=== PATIENT | female | born 1935 | race African-American/Black ===

== ENCOUNTER 2016-09-10 09:19 | Inpatient (IN) | payer BC ==
[2016-09-10] VITALS (20 sets, daily range): BP systolic 98–158; BP diastolic 57–109
[~2016-09-10] VITALS: Ht 167.6 cm; Wt 94.3 kg
[~2016-09-10 09:19] MED LIST: DILT240C32 PO; FERR325T72 PO; GLIM2TAB2 PO; HYDR-971 PO; LISI40TA PO; METF500T4 PO; METO50TA2 PO; PRAV80TA2 PO; TRIA1TAB5 PO
[2016-09-10] MEDS ORDERED: fentaNYL PF VIAL 100 MCG/2 ML VIAL IV PRN (10:00)
[2016-09-10 10:01] LABS: NEG OBC FOB NEG; POS OBC FOB POS
[2016-09-10 10:12] LABS: BASO % 1 % (0-3); EOS % 1 % (0-3); HEMATOCRIT 30.3 % (36.0-47.0); HEMOGLOBIN 10.6 g/dL (12.0-15.5); LYMPH % 13 % (24-48); MEAN CORPUSCULAR HEMOGLOBIN 29 pg (25-35); MEAN CORPUSCULAR HGB CONC 35 g/dL (31-37); MEAN CORPUSCULAR VOLUME 83 fL (79-100); MONO % 6 % (0-9); NEUT % 79 % (31-73); PLATELET COUNT 248 x10^3/uL (140-400); RED BLOOD COUNT 3.63 x10^6/uL (3.50-5.40); RED CELL DISTRIBUTION WIDTH 16.1 % (11.5-14.5); WHITE BLOOD COUNT 7.9 x10^3/uL (4.0-11.0)
--- NOTE | 2016-09-10 10:15 | ED.ADGEN ---
Past Medical History Past Medical History: Diverticulitis Past Surgical History: Hip Replacement Additional Past Surgical Histo: R knee, back Alcohol Use: None Drug Use: None Adult General Chief Complaint Chief Complaint: ABDOMINAL PAIN HPI HPI Patient is a 81 year old woman, history of diverticulitis with recurrent diverticular bleed, who presents to the emergency department with a complaint of several episodes of bloody stool this morning. Patient states she is experiencing lower abdominal cramping early this morning, and had a bowel movement with dark brown stool, and a small amount of bright red blood, has had 2 subsequent episodes with no stool, and large amounts of bright red blood. Denies any injuries, denies any abdominal pain currently, no chest pain, shortness of breath, no nausea or vomiting. Patient is a history of a hiatal hernia, and a previous endoscopy that revealed hemorrhoids and diverticulitis per her report she was seen by Dr. Calle several years ago. Patient was seen in the ED and admitted in February 2016 with a diverticular bleed, at that time she was seen by Dr. Ken. Denies any NSAIDs or blood thinners. She denies any recent travel, surgery, or other complaints. States she was feeling well until this began this morning. Currently blood pressures are 120s over 80s, heart rate is in the 60s, oxygen saturation is 97-99% on room air, respiratory rate is unlabored. Review of Systems Review of Systems Constitutional: Denies fever or chills. [] Eyes: Denies change in visual acuity. [] HENT: Denies nasal congestion or sore throat. [] Respiratory: Denies cough or shortness of breath. [] Cardiovascular: Denies chest pain or edema. [] GI: Denies abdominal pain, nausea, vomiting, bloody stools or diarrhea. [] : Denies dysuria. [] Musculoskeletal: Denies back pain or joint pain. [] Integument: Denies rash. [] Neurologic: Denies headache, focal weakness or sensory changes. [] Endocrine: Denies polyuria or polydipsia. [] Lymphatic: Denies swollen glands. [] Psychiatric: Denies depression or anxiety. [] Current Medications Current Medications Current Medications Medications (Trade) Dose Ordered Sig/Anna Start Time Stop Time Status Last Admin Dose Admin Fentanyl Citrate (Fentanyl 2ml Vial) 25 mcg PRN Q15MIN PRN 09/10/16 10:00 09/11/16 09:59 09/10/16 11:15 25 MCG Allergies Allergies Allergies Coded Allergies Type Severity Reaction Last Updated Verified morphine Allergy Intermediate itching 03/10/15 Yes I S O L A T I O N *CONTACT* Allergy Unknown 02/09/16 Yes Physical Exam Physical Exam Constitutional: Well developed, well nourished, no acute distress, non-toxic appearance. [] HENT: Normocephalic, atraumatic, bilateral external ears normal, oropharynx moist, no oral exudates, nose normal. [] Eyes: PERRLA, EOMI, conjunctiva normal, no discharge. [] Neck: Normal range of motion, no tenderness, supple, no stridor. [] Cardiovascular:Heart rate regular rhythm, no murmur, S1, S2, no rubs or gallops. [] Lungs & Thorax: Bilateral breath sounds clear to auscultation, no wheezing, rhonchi, rales. No chest wall crepitus or tenderness. [] Abdomen: Bowel sounds normal, soft, obese, no tenderness, no rebound, rigidity, no guarding, no masses, no pulsatile masses. [] Skin: Warm, dry, no erythema, no rash. [] Back: No tenderness, no CVA tenderness. [] Extremities: No tenderness, no cyanosis, no clubbing, ROM intact, no edema. Negative Homans sign. [] Neurologic: Alert and oriented X 3, normal motor function, normal sensory function, no focal deficits noted. [] Psychologic: Affect normal, judgement normal, mood normal. [] Rectal examination: Patient with gross bright red blood noted, large amounts of blood in noted to be in toilet. Current Patient Data Vital Signs Vital Signs Date Time Temp Pulse Resp B/P (MAP) Pulse Ox O2 Delivery O2 Flow Rate FiO2 09/10/16 10:42 71 18 127/69 (88) 97 09/10/16 09:35 98.1 Room Air 98.1 Lab Values Laboratory Tests Test 09/10/16 09:35 09/10/16 09:55 09/10/16 10:20 09/10/16 10:23 Stool Occult Blood Positive (NEG) White Blood Count 7.9 x10^3/uL (4.0-11.0) Red Blood Count 3.63 x10^6/uL (3.50-5.40) Hemoglobin 10.6 g/dL (12.0-15.5) L Hematocrit 30.3 % (36.0-47.0) L Mean Corpuscular Volume 83 fL (79-100) Mean Corpuscular Hemoglobin 29 pg (25-35) Mean Corpuscular Hemoglobin Concent 35 g/dL (31-37) Red Cell Distribution Width 16.1 % (11.5-14.5) H Platelet Count 248 x10^3/uL (140-400) Neutrophils (%) (Auto) 79 % (31-73) H Lymphocytes (%) (Auto) 13 % (24-48) L Monocytes (%) (Auto) 6 % (0-9) Eosinophils (%) (Auto) 1 % (0-3) Basophils (%) (Auto) 1 % (0-3) Neutrophils # (Auto) 6.3 x10^3uL (1.8-7.7) Lymphocytes # (Auto) 1.0 x10^3/uL (1.0-4.8) Monocytes # (Auto) 0.5 x10^3/uL (0.0-1.1) Eosinophils # (Auto) 0.1 x10^3/uL (0.0-0.7) Basophils # (Auto) 0.0 x10^3/uL (0.0-0.2) Prothrombin Time 14.4 SEC (11.7-14.0) H Prothrombin Time INR 1.2 (0.8-1.1) H PTT 29 SEC (24-38) Sodium Level 144 mmol/L (136-145) Potassium Level 3.8 mmol/L (3.5-5.1) Chloride Level 107 mmol/L (98-107) Carbon Dioxide Level 24 mmol/L (21-32) Anion Gap 13 (6-14) Blood Urea Nitrogen 20 mg/dL (7-20) Creatinine 1.2 mg/dL (0.6-1.0) H Estimated GFR (Cockcroft-Gault) 52.0 BUN/Creatinine Ratio 17 (6-20) Glucose Level 198 mg/dL (70-99) H Calcium Level 9.6 mg/dL (8.5-10.1) Total Bilirubin 0.2 mg/dL (0.2-1.0) Aspartate Amino Transferase (AST) 17 U/L (15-37) Alanine Aminotransferase (ALT) 18 U/L (14-59) Alkaline Phosphatase 87 U/L (46-116) Troponin I Quantitative < 0.017 ng/mL (0.000-0.055) Total Protein 6.7 g/dL (6.4-8.2) Albumin 3.1 g/dL (3.4-5.0) L Albumin/Globulin Ratio 0.9 (1.0-1.7) L Lactic Acid Level 2.2 mmol/L (0.4-2.0) H Urine Collection Type U cath Urine Color Yellow Urine Clarity Clear Urine pH 5.0 Urine Specific [place] 1.025 Urine Protein 100 mg/dL (NEG-TRACE) Urine Glucose (UA) Negative mg/dL (NEG) Urine Ketones (Stick) Negative mg/dL (NEG) Urine Blood Negative (NEG) Urine Nitrite Negative (NEG) Urine Bilirubin Negative (NEG) Urine Urobilinogen Dipstick 0.2 mg/dL (0.2 mg/dL) Urine Leukocyte Esterase Negative (NEG) Urine RBC 0 /HPF (0-2) Urine WBC 1-4 /HPF (0-4) Urine Transitional Epithelial Cells Occ /LPF Urine Amorphous Sediment Present /HPF Urine Bacteria Moderate /HPF (0-FEW) Laboratory Tests 09/10/16 09:55 Laboratory Tests 09/10/16 09:55 EKG EKG EC: Sinus rhythm, heart rate 70 beats minute, left axis deviation, Q waves noted in lead 3, with abnormalities in lead 2, and changes in the lateral leads, QTc of 435, CT of 194, QRS of 86, abnormal ECG, does not meet STEMI criteria. As interpreted by me. Course & Med Decision Making Course & Med Decision Making Pertinent Labs and Imaging studies reviewed. (See chart for details) I spoke with NEVILLE Archuleta for Dr. Ken. Will proceed with bleeding scan, patient currently has laboratory studies running, including a type and screen for potential transfusion if needed. No history consistent with or evidence of upper GI bleeding, no indication for Protonix infusion. At this time she is denying all complaints, and vital signs remained within normal limits in the ED. Patient's hemoglobin is 10.9, consent for transfusion was obtained, although there is no indication for transfusion at this time, as patient's vital signs remained within normal limits, hemoglobin is stated. Patient is agreeable with this plan. Findings as above discussed with Dr. Henson, the patient's primary care provider, was accepted as a full admission to the ICU under her service. Patient transported for nuclear medicine for her GI bleeding study in stable condition. Dragon Disclaimer Dragon Disclaimer This electronic medical record was generated, in whole or in part, using a voice recognition dictation system. Departure Impression: Primary Impression: Lower GI bleed Disposition: ADMITTED INPATIENT Admitting Physician: More Henson Condition: IMPROVED SENA FREED DO Sep 10, 2016 10:15
[2016-09-10 10:17] LABS: CALCIUM 9.6 mg/dL (8.5-10.1); CREATININE 1.2 mg/dL (0.6-1.0); POTASSIUM 3.8 mmol/L (3.5-5.1)
[2016-09-10 10:24] LABS: ALBUMIN 3.1 g/dL (3.4-5.0); ALBUMIN/GLOBULIN RATIO 0.9 (1.0-1.7); TOTAL BILIRUBIN 0.2 mg/dL (0.2-1.0); TOTAL PROTEIN 6.7 g/dL (6.4-8.2)
[2016-09-10 10:30] LABS: INR 1.2 (0.8-1.1); PROTHROMBIN TIME PATIENT 14.4 SEC (11.7-14.0)
[2016-09-10 10:33] LABS: BILIRUBIN,URINE NEGATIVE (NEG); GLUCOSE,URINE NEGATIVE (NEG); NITRITE,URINE NEGATIVE (NEG); PROTEIN,URINE 100 mg/dL (NEG-TRACE); UROBILINOGEN,URINE 0.2 mg/dL (0.2 mg/dL)
[2016-09-10 10:45] LABS: BACTERIA,URINE MODERATE /HPF (0-FEW); RBC,URINE 0 /HPF (0-2)
--- NOTE | 2016-09-10 10:46 | EKG ---
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
[2016-09-10] MEDS ORDERED: IV NORMAL SALINE 500ML BAG 500 ML IV ONE (11:30)
[2016-09-10] MEDS ORDERED: ONDANSETRON PF 4 MG/2 ML VIAL. IV PRN (11:30)
--- NOTE | 2016-09-10 11:34 | ACF ---
Admit Criteria Forms Admit Criteria Forms Admit Criteria Forms GASTROINTESTINAL BLEEDING, LOWER Clinical Indications for Admission to Inpatient Care ( Place 'X' for any and all applicable criteria): Admission is indicated for ANY ONE of the following(1)(2)(3)(4)(5): [X]I. Active gross bleeding per rectum [ ]II. Inpatient admission required rather than observation care (Also use Gastrointestinal Bleeding, Lower: Observation Care as appropriate) because of ANY ONE of the following: [ ]a) Hemodynamic instability that is severe or persistent [ ]b) Anemia requiring inpatient admission as indicated by ALL of the following: [ ]1) Presence of significant clinical finding indicated by ANY ONE of the following: [ ]A. Tachycardia for age [ ]B. Orthostatic vital sign changes [ ]C. Cognitive impairment [ ]D. Heart failure [ ]E. Chest pain [ ]F. Exertional dyspnea [ ]G. Other findings suggesting inadequate perfusion (eg, peripheral or myocardial ischemia, end organ dysfunction) [ ]2) Initial (eg, emergency department, observation care) treatment with transfusion or volume replacement is judged inappropriate (due to severity of the finding) or has been ineffective [ ]c) Severe pain requiring acute inpatient management [ ]d) Absent bowel sounds with complete ileus [ ]e) Signs of intestinal obstruction or peritonitis [A] [ ]f) High-risk low platelet count [ ]g) Severe electrolyte abnormalities requiring inpatient care [ ]h) Acute renal failure [ ]i) High fever or infection requiring inpatient admission as indicated by ANY ONE of the following(8)(9): [ ]1) Appropriate outpatient or observation care antimicrobial treatment unavailable, not effective, or not feasible Documented bacteremia [ ]2) Documented bacteremia [ ]3) Temperature greater than 104.9 degrees F ( 40.5 degrees C) (oral) [ ]4) Temperature greater than 103.1 degrees F ( 39.5 degrees C) (oral) or less than 96.8 degrees F (36 degrees C) (rectal) that does not respond to all emergency treatment measures [ ]j) IV fluid to replace significant ongoing losses ( greater than 3 L/m2 per day) [ ]k) Immediate inpatient surgery needed [ ]l) Parenteral nutrition regimen that must be implemented on inpatient basis [ ]m) Other condition, treatment or monitoring requiring inpatient admission [ ]III. Unstable comorbid illness (renal, hepatic, pulmonary, hematologic, neurologic, or cardiac) [ ]IV. Failure to control bleeding after colonoscopy [ ]V. Coagulopathy [ ]. Suspected or known ischemic colitis(6) [ ]VII. Previous aortic graft placement or known aortic aneurysm Extended stay beyond goal length of stay may be needed for(3)(4)(28): [ ]a) Emergency surgery [ ]b) Coagulation abnormalities(26) [ ]c) Recurrent or persistent bleeding, continued vital sign instability(27)( 28) [ ]d) Active comorbidities (eg, renal insufficiency, heart failure, pre- existing liver disease) The original [employer] content created by [employer] has been revised. The portions of the content which have been revised are identified through the use of italic text or in bold, and [facility] has neither reviewed nor approved the modified material. All other unmodified content is copyright [employer]. Please see references footnoted in the original [employer] edition 2016 MATILDE BOYCE Sep 10, 2016 11:34
--- NOTE | 2016-09-10 12:30 | RAD ---
Radionuclide GI bleeding scan, 09/10/2016: History: Bright red blood per rectum The study was performed utilizing 29 mCi of technetium 99m and a labeled red blood cell technique. There is prompt abnormal accumulation of activity in the left upper quadrant of the abdomen. This is probably originating in the splenic flexure region of the colon. There is extension inferiorly into the descending colon and sigmoid. IMPRESSION: Positive radionuclide GI bleeding study at the level of the splenic flexure. Note: The findings were called to the patient's nurse in the ICU at 12:26 PM on 09/10/2016.
[2016-09-10] MEDS ORDERED: GLIM2TAB2 PO (13:19)
[2016-09-10] MEDS ORDERED: GLIM1TAB2 PO (13:19)
[2016-09-10] MEDS ORDERED: IOHEXOL 350 MG/ML 100 ML VIAL. IV ONE (13:30)
--- NOTE | 2016-09-10 13:35 | PDOC2 ---
GI CONSULT Reason For Consult: GI bleed/ h/o diverticular bleed HPI: HPI: Previously d/w Dr. Padilla, ER physician. 81 y/o female w/ h/o GI bleeding, presumed to be diverticular in nature. Evaluated by GI/Dr. Ken in 02/2016 for hematochezia. This morning had recurrence of bloody stools w/ some mild lower abdominal cramping. Bleeding has recurred 3-4 times w/ decreasing stool and increasing amounts of bright red blood. Cramping has resolved. No CP, SOA , dizziness. Hgb was 10.6 w/ hemoccult positive stool. For comparison, Hgb was 10.3 when last discharged in 02/2016. Vitals are stable. Last colonoscopy w/ Dr. Carmel Calle ~3 years ago, reportedly showed diverticulosis and hemorrhoids. Last CT in 02/2016 showed moderately extensive diverticular disease that is most pronounced in the sigmoid colon w/o inflammation. She has occasional constipation improved w/ stool softeners. She takes iron " as needed" but prefers not to take regularly due to constipation. Takes Excedrin daily for headaches and also uses ASA PRN. No n/v, reflux/heartburn, dysphagia, diarrhea, melena, change in appetite, weight loss. PMH: PMH: diverticulosis w/ previous GI bleed, colon polyp (years ago), DM, HTN, HLD, anemia, hiatal hernia, arthritis, headaches, right elbow fracture/surgery, right knee replacement, left knee arthroscopy, back surgery FH: Family History: No pertinent hx Social History: Smoke: No ALCOHOL: none Drugs: None ROS: GEN: Denies fevers, chills, sweats HEENT: Denies blurred vision, sore throat CV: Denies chest pain RESP: Denies shortness of air, cough GI: Per HPI : Denies hematuria, dysuria ENDO: Denies weight changes NEURO: Denies confusion, dizziness MSK: +weakness this morning SKIN: Denies jaundice, pruritus Vitals: Vitals: Vital Signs Date Time Temp Pulse Resp B/P (MAP) Pulse Ox O2 Delivery O2 Flow Rate FiO2 09/10/16 11:35 70 21 131/61 (84) 98 Room Air 09/10/16 09:35 98.1 98.1 Labs: Labs: Laboratory Tests Test 09/10/16 09:35 09/10/16 09:55 09/10/16 10:20 09/10/16 10:23 Stool Occult Blood Positive (NEG) White Blood Count 7.9 x10^3/uL (4.0-11.0) Red Blood Count 3.63 x10^6/uL (3.50-5.40) Hemoglobin 10.6 g/dL (12.0-15.5) Hematocrit 30.3 % (36.0-47.0) Mean Corpuscular Volume 83 fL (79-100) Mean Corpuscular Hemoglobin 29 pg (25-35) Mean Corpuscular Hemoglobin Concent 35 g/dL (31-37) Red Cell Distribution Width 16.1 % (11.5-14.5) Platelet Count 248 x10^3/uL (140-400) Neutrophils (%) (Auto) 79 % (31-73) Lymphocytes (%) (Auto) 13 % (24-48) Monocytes (%) (Auto) 6 % (0-9) Eosinophils (%) (Auto) 1 % (0-3) Basophils (%) (Auto) 1 % (0-3) Neutrophils # (Auto) 6.3 x10^3uL (1.8-7.7) Lymphocytes # (Auto) 1.0 x10^3/uL (1.0-4.8) Monocytes # (Auto) 0.5 x10^3/uL (0.0-1.1) Eosinophils # (Auto) 0.1 x10^3/uL (0.0-0.7) Basophils # (Auto) 0.0 x10^3/uL (0.0-0.2) Prothrombin Time 14.4 SEC (11.7-14.0) Prothromb Time International Ratio 1.2 (0.8-1.1) Activated Partial Thromboplast Time 29 SEC (24-38) Sodium Level 144 mmol/L (136-145) Potassium Level 3.8 mmol/L (3.5-5.1) Chloride Level 107 mmol/L (98-107) Carbon Dioxide Level 24 mmol/L (21-32) Anion Gap 13 (6-14) Blood Urea Nitrogen 20 mg/dL (7-20) Creatinine 1.2 mg/dL (0.6-1.0) Estimated GFR (Cockcroft-Gault) 52.0 BUN/Creatinine Ratio 17 (6-20) Glucose Level 198 mg/dL (70-99) Calcium Level 9.6 mg/dL (8.5-10.1) Total Bilirubin 0.2 mg/dL (0.2-1.0) Aspartate Amino Transf (AST/SGOT) 17 U/L (15-37) Alanine Aminotransferase (ALT/SGPT) 18 U/L (14-59) Alkaline Phosphatase 87 U/L (46-116) Troponin I Quantitative < 0.017 ng/mL (0.000-0.055) Total Protein 6.7 g/dL (6.4-8.2) Albumin 3.1 g/dL (3.4-5.0) Albumin/Globulin Ratio 0.9 (1.0-1.7) Lactic Acid Level 2.2 mmol/L (0.4-2.0) Urine Collection Type U cath Urine Color Yellow Urine Clarity Clear Urine pH 5.0 Urine Specific [place] 1.025 Urine Protein 100 mg/dL (NEG-TRACE) Urine Glucose (UA) Negative mg/dL (NEG) Urine Ketones (Stick) Negative mg/dL (NEG) Urine Blood Negative (NEG) Urine Nitrite Negative (NEG) Urine Bilirubin Negative (NEG) Urine Urobilinogen Dipstick 0.2 mg/dL (0.2 mg/dL) Urine Leukocyte Esterase Negative (NEG) Urine RBC 0 /HPF (0-2) Urine WBC 1-4 /HPF (0-4) Urine Transitional Epithelial Cells Occ /LPF Urine Amorphous Sediment Present /HPF Urine Bacteria Moderate /HPF (0-FEW) Allergies: Coded Allergies: morphine (Verified Allergy, Intermediate, itching, 03/10/15) I S O L A T I O N *CONTACT* (Verified Allergy, Unknown, 02/09/16) mrsa Medications: Current Medications Medications (Trade) Dose Ordered Sig/Anna Route PRN Reason Start Time Stop Time Status Last Admin Dose Admin Fentanyl Citrate (Fentanyl 2ml Vial) 25 mcg PRN Q15MIN PRN IV PAIN GREATER THAN 3/10 09/10/16 10:00 09/11/16 09:59 09/10/16 11:15 Sodium Chloride 500 ml @ 500 mls/hr 1X ONCE IV 09/10/16 11:30 09/10/16 12:29 DC 09/10/16 11:35 Imaging: Imaging: GI Bleed Scan 09/10/16 IMPRESSION: Positive radionuclide GI bleeding study at the level of the splenic flexure. PE: GEN: NAD HEENT: Atraumatic, PERRL LUNGS: CTAB HEART: RRR ABD: NABS, S/ND/NT EXTREMITY: No edema SKIN: No rashes, no jaundice NEURO/PSYCH: A & O 3 A/P: A/P: Recurrent GI bleeding, positive bleeding scan -h/o diverticular disease -last episode 02/2016, recurred this morning Abd cramping, lower - resolved Anemia -Hgb 10.6 (compared to 10.3 when last checked in 02/2016) -takes iron sporadically NSAID use -Excedrin QD for headaches Constipation -occasional, improved w/ stool softeners CRC screen -last colonoscopy ~3 years ago w/ Dr. Carmel Calle -- D/w Dr. Ken ---> IR and surgery consults. D/w Dr. Burns/IR who suggested CTA w/ stable Hgb and vitals. Empiric IV H2 curtis, keep NPO. Hgb to be repeated this evening. PAGE SCHOFIELD Sep 10, 2016 13:35
[2016-09-10] MEDS: FAMOTIDINE 20 MG/2 ML VIAL IVP SCH (14:29)
[2016-09-10] MEDS: IV NORMAL SALINE 1000ML BAG 1,000 ML IV SCH ×2 (14:30→19:16)
--- NOTE | 2016-09-10 15:08 | RAD ---
CTA abdomen/pelvis 09/10/2016 at 1349 hours Indication: GI bleed Comparison: CTA abdomen/pelvis 02/07/2016 Technique: Axial CT images of the abdomen and pelvis were acquired before and after the administration of intravenous contrast. Coronal and sagittal reformats are provided. 75 mL Omni 350 was administered. No oral contrast administered. CTA targeted to the abdominal aorta was performed with MIP images generated and reviewed. Findings: Vascular findings: The abdominal aorta at the aortic hiatus measures 2.5 x 2.4 cm. Origin of the celiac axis is mildly narrowed by a nonatherosclerotic plaque. There does appear to be poststenotic dilatation of the splenic trunk measuring maximally 5 mm. There is no focal aneurysm. The superior mesenteric artery is widely patent. Origins of the renal arteries are patent. Origin of the inferior mesenteric artery is patent. There is calcified and noncalcified atherosclerotic plaque of the abdominal aorta. There is a focal 5 mm penetrating ulcer involving the infrarenal abdominal aorta (series 5, image 53). The distal abdominal aorta measures 2.1 x 2.0 cm. No focal aneurysm is identified. Right common iliac artery measures 1.3 cm in diameter. The left common iliac artery measures 1.5 cm in diameter. External and internal iliac arteries are normal. No findings to suggest angiodysplasia of the colon. No focal contrast extravasation. Nonvascular findings: There is subsegmental atelectasis at the left lung base. Heart size is within normal limits. No suspicious hepatic lesions are identified. Scattered calcifications within the liver and spleen represent stigmata of granulomatous disease. Lobulated appearance of bilateral adrenal glands appears stable dating back to 02/07/2016, suggestive of adrenal adenomas versus adrenal hyperplasia measuring maximal thickness of 9 mm on the right and 12 mm on the left. Pancreas is normal. Gallbladder is present and within normal limits. There is no intrahepatic or extrahepatic biliary ductal dilatation. The kidneys enhance symmetrically. Multiple bilateral renal cysts are present measuring up to 3.5 cm on the left superior pole and 2.2 cm in the interpolar region of the right kidney. Few subcentimeter hypodense lesions in the kidneys bilaterally are too small to characterize. Small and large bowel are normal in caliber without evidence for obstruction. Colonic diverticula are present without adjacent inflammatory changes. A normal appendix is visualized. The terminal ileum appears normal. There is no hyperattenuation within the distal bowel to suggest acute blood products. There is no free fluid within the abdomen or pelvis. No free intraperitoneal air. Evaluation of the rectum and pelvis is limited by streak artifact from right hip prosthesis. Lucent lesion identified in the left posterior iliac bone may represent site of prior graft harvest. No suspicious osseous lesions are identified. Urinary bladder is normal. Uterus and adnexa are normal. Impression: 1. There is a focal penetrating ulcer involving the infrarenal abdominal aorta. Calcified and noncalcified atherosclerotic plaque is noted without focal aneurysm. 2. No CT evidence for GI bleed. Colonic diverticulosis without evidence for acute diverticulitis. 3. 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 4. Thickening of the bilateral adrenal glands may be secondary to adrenal hyperplasia or adrenal adenomas. These findings are stable compared to the prior examination from 02/07/2016. PQRS Compliance Statement: One or more of the following individualized dose reduction techniques were utilized for this examination: 1. Automated exposure control 2. Adjustment of the mA and/or kV according to patient size 3. Use of iterative reconstruction technique
[2016-09-10] MEDS: fentaNYL PF VIAL 100 MCG/2 ML VIAL IV PRN ×2 (16:34→22:09)
[2016-09-10] MEDS ORDERED: diphenhydrAMINE 50 MG/ML VIAL IVP PRN (17:30)
--- NOTE | 2016-09-10 17:42 | PDOC2 ---
CONSULT Date of Consult Date of Consult DATE: 09/10/16 TIME: 17:35 Reason for Consult Reason for Consult: GI bleeding, favor diverticular bleeding Referring Physician Referring Physician: Shalonda Identification/Chief Complaint Chief Complaint LGI bleeding Problems: Source Source: Patient History of Present Illness Reason for Visit: 81 yo F admitted with rectal bleeding. Previous episodes of similar issues. Colonoscopy has demonstrated diverticular disease. Pt currently in ICU, appears stable. Main c/o is pruritus of feet. Denies abd pain or N/V Past Medical History Cardiovascular: HTN GI: Diverticulosis, GI bleed Heme/Onc: Anemia NOS Endocrine: Diabetes Past Surgical History Past Surgical History: Other (ortho procedures) Family History Family History: No Significant Social History No ALCOHOL: none Drugs: None Current Problem List Problem List Problems Medical Problems: (1) Lower GI bleed Status: Acute Current Medications Current Medications Current Medications Fentanyl Citrate (Fentanyl 2ml Vial) 25 mcg PRN Q15MIN PRN IV PAIN GREATER THAN 3/10 Last administered on 09/10/16 11:15; Start 09/10/16 at 10:00; Stop at 09:59 Ondansetron HCl (Zofran) 4 mg PRN Q8HRS PRN IV NAUSEA/VOMITING; Start 09/10/16 at 11:30; Stop 09/11/16 at 11:29 Fentanyl Citrate (Fentanyl 2ml Vial) 50 mcg PRN Q1HR PRN IV PAIN Last administered on 09/10/16 16:34; Start 09/10/16 at 11:30; Stop 09/11/16 at 11:29 Sodium Chloride 1,000 ml @ 125 mls/hr Q8H IV Last administered on 09/10/16 14 :30; Start 09/10/16 at 11:16; Stop 09/11/16 at 11:15 Sodium Chloride 500 ml @ 500 mls/hr 1X ONCE IV Last administered on 11:35; Start 09/10/16 at 11:30; Stop 09/10/16 at 12:29; Status DC Iohexol (Omnipaque 350 Mg/ml) 90 ml 1X ONCE IV Last administered on 09/10/16 14:00; Start 09/10/16 at 13:30; Stop 09/10/16 at 13:35; Status DC Famotidine (Pepcid) 20 mg DAILY IVP Last administered on 09/10/16t 14:29; Start 09/10/16 at 14:00 Diphenhydramine HCl (Benadryl) 25 mg PRN Q6HRS PRN IVP ITCHING; Start 09/10/16 at 17:30 Active Scripts Active Metoprolol Tartrate 50 Mg Tablet 75 Mg PO BID 30 Days Feosol (Ferrous Sulfate) 325 Mg Tablet 325 Mg PO DAILYWBKFT 30 Days Reported Glimepiride 2 Mg Tablet 1 Tab PO DAILY08 Glimepiride 1 Mg Tablet 1 Tab PO DAILYBFRSUP Pravastatin Sodium 80 Mg Tablet 1 Tab PO QHS Metformin Hcl 500 Mg Tablet 1 Tab PO BID Lisinopril 40 Mg Tablet 1 Tab PO DAILY Triamterene-Hctz 75-50 Mg Tab (Triamterene/Hydrochlorothiazid) 1 Each Tablet 1 Tab PO DAILY Diltiazem 24HR Cd (Diltiazem Hcl) 240 Mg Cap.er.24h 240 Mg PO DAILY [place] 5-325 Tablet (Acetaminophen/Hydrocodone Bitart) 1 Each Tablet 1 Tab PO PRN Q6HRS PRN Allergies Allergies: Coded Allergies: morphine (Verified Allergy, Intermediate, itching, 03/10/15) I S O L A T I O N *CONTACT* (Verified Allergy, Unknown, 02/09/16) mrsa ROS General: YES: Fatigue Gastrointestinal: Yes Hematochezia Skin: Yes Pruritus Physical Exam General: Alert, Oriented X3, Cooperative, No acute distress HEENT: Atraumatic, EOMI, Mucous membr. moist/pink Lungs: Normal air movement Abdomen: Soft, No tenderness Extremities: No clubbing, No cyanosis Skin: No rashes, No breakdown Neuro: Normal speech, Sensation intact Psych/Mental Status: Mental status NL, Mood NL Vitals VITALS Vital Signs Date Time Temp Pulse Resp B/P (MAP) Pulse Ox O2 Delivery O2 Flow Rate FiO2 09/10/16 11:35 70 21 131/61 (84) 98 Room Air 09/10/16 09:35 98.1 98.1 Labs Labs Laboratory Tests Test 09/10/16 09:35 09/10/16 09:55 09/10/16 10:20 09/10/16 10:23 Stool Occult Blood Positive (NEG) White Blood Count 7.9 x10^3/uL (4.0-11.0) Red Blood Count 3.63 x10^6/uL (3.50-5.40) Hemoglobin 10.6 g/dL (12.0-15.5) Hematocrit 30.3 % (36.0-47.0) Mean Corpuscular Volume 83 fL (79-100) Mean Corpuscular Hemoglobin 29 pg (25-35) Mean Corpuscular Hemoglobin Concent 35 g/dL (31-37) Red Cell Distribution Width 16.1 % (11.5-14.5) Platelet Count 248 x10^3/uL (140-400) Neutrophils (%) (Auto) 79 % (31-73) Lymphocytes (%) (Auto) 13 % (24-48) Monocytes (%) (Auto) 6 % (0-9) Eosinophils (%) (Auto) 1 % (0-3) Basophils (%) (Auto) 1 % (0-3) Neutrophils # (Auto) 6.3 x10^3uL (1.8-7.7) Lymphocytes # (Auto) 1.0 x10^3/uL (1.0-4.8) Monocytes # (Auto) 0.5 x10^3/uL (0.0-1.1) Eosinophils # (Auto) 0.1 x10^3/uL (0.0-0.7) Basophils # (Auto) 0.0 x10^3/uL (0.0-0.2) Prothrombin Time 14.4 SEC (11.7-14.0) Prothromb Time International Ratio 1.2 (0.8-1.1) Activated Partial Thromboplast Time 29 SEC (24-38) Sodium Level 144 mmol/L (136-145) Potassium Level 3.8 mmol/L (3.5-5.1) Chloride Level 107 mmol/L (98-107) Carbon Dioxide Level 24 mmol/L (21-32) Anion Gap 13 (6-14) Blood Urea Nitrogen 20 mg/dL (7-20) Creatinine 1.2 mg/dL (0.6-1.0) Estimated GFR (Cockcroft-Gault) 52.0 BUN/Creatinine Ratio 17 (6-20) Glucose Level 198 mg/dL (70-99) Calcium Level 9.6 mg/dL (8.5-10.1) Total Bilirubin 0.2 mg/dL (0.2-1.0) Aspartate Amino Transf (AST/SGOT) 17 U/L (15-37) Alanine Aminotransferase (ALT/SGPT) 18 U/L (14-59) Alkaline Phosphatase 87 U/L (46-116) Troponin I Quantitative < 0.017 ng/mL (0.000-0.055) Total Protein 6.7 g/dL (6.4-8.2) Albumin 3.1 g/dL (3.4-5.0) Albumin/Globulin Ratio 0.9 (1.0-1.7) Lactic Acid Level 2.2 mmol/L (0.4-2.0) Urine Collection Type U cath Urine Color Yellow Urine Clarity Clear Urine pH 5.0 Urine Specific [place] 1.025 Urine Protein 100 mg/dL (NEG-TRACE) Urine Glucose (UA) Negative mg/dL (NEG) Urine Ketones (Stick) Negative mg/dL (NEG) Urine Blood Negative (NEG) Urine Nitrite Negative (NEG) Urine Bilirubin Negative (NEG) Urine Urobilinogen Dipstick 0.2 mg/dL (0.2 mg/dL) Urine Leukocyte Esterase Negative (NEG) Urine RBC 0 /HPF (0-2) Urine WBC 1-4 /HPF (0-4) Urine Transitional Epithelial Cells Occ /LPF Urine Amorphous Sediment Present /HPF Urine Bacteria Moderate /HPF (0-FEW) Laboratory Tests Test 09/10/16 09:35 09/10/16 09:55 09/10/16 10:20 09/10/16 10:23 Stool Occult Blood Positive (NEG) White Blood Count 7.9 x10^3/uL (4.0-11.0) Red Blood Count 3.63 x10^6/uL (3.50-5.40) Hemoglobin 10.6 g/dL (12.0-15.5) Hematocrit 30.3 % (36.0-47.0) Mean Corpuscular Volume 83 fL (79-100) Mean Corpuscular Hemoglobin 29 pg (25-35) Mean Corpuscular Hemoglobin Concent 35 g/dL (31-37) Red Cell Distribution Width 16.1 % (11.5-14.5) Platelet Count 248 x10^3/uL (140-400) Neutrophils (%) (Auto) 79 % (31-73) Lymphocytes (%) (Auto) 13 % (24-48) Monocytes (%) (Auto) 6 % (0-9) Eosinophils (%) (Auto) 1 % (0-3) Basophils (%) (Auto) 1 % (0-3) Neutrophils # (Auto) 6.3 x10^3uL (1.8-7.7) Lymphocytes # (Auto) 1.0 x10^3/uL (1.0-4.8) Monocytes # (Auto) 0.5 x10^3/uL (0.0-1.1) Eosinophils # (Auto) 0.1 x10^3/uL (0.0-0.7) Basophils # (Auto) 0.0 x10^3/uL (0.0-0.2) Prothrombin Time 14.4 SEC (11.7-14.0) Prothromb Time International Ratio 1.2 (0.8-1.1) Activated Partial Thromboplast Time 29 SEC (24-38) Sodium Level 144 mmol/L (136-145) Potassium Level 3.8 mmol/L (3.5-5.1) Chloride Level 107 mmol/L (98-107) Carbon Dioxide Level 24 mmol/L (21-32) Anion Gap 13 (6-14) Blood Urea Nitrogen 20 mg/dL (7-20) Creatinine 1.2 mg/dL (0.6-1.0) Estimated GFR (Cockcroft-Gault) 52.0 BUN/Creatinine Ratio 17 (6-20) Glucose Level 198 mg/dL (70-99) Calcium Level 9.6 mg/dL (8.5-10.1) Total Bilirubin 0.2 mg/dL (0.2-1.0) Aspartate Amino Transf (AST/SGOT) 17 U/L (15-37) Alanine Aminotransferase (ALT/SGPT) 18 U/L (14-59) Alkaline Phosphatase 87 U/L (46-116) Troponin I Quantitative < 0.017 ng/mL (0.000-0.055) Total Protein 6.7 g/dL (6.4-8.2) Albumin 3.1 g/dL (3.4-5.0) Albumin/Globulin Ratio 0.9 (1.0-1.7) Lactic Acid Level 2.2 mmol/L (0.4-2.0) Urine Collection Type U cath Urine Color Yellow Urine Clarity Clear Urine pH 5.0 Urine Specific [place] 1.025 Urine Protein 100 mg/dL (NEG-TRACE) Urine Glucose (UA) Negative mg/dL (NEG) Urine Ketones (Stick) Negative mg/dL (NEG) Urine Blood Negative (NEG) Urine Nitrite Negative (NEG) Urine Bilirubin Negative (NEG) Urine Urobilinogen Dipstick 0.2 mg/dL (0.2 mg/dL) Urine Leukocyte Esterase Negative (NEG) Urine RBC 0 /HPF (0-2) Urine WBC 1-4 /HPF (0-4) Urine Transitional Epithelial Cells Occ /LPF Urine Amorphous Sediment Present /HPF Urine Bacteria Moderate /HPF (0-FEW) Assessment/Plan Assessment/Plan Diverticular bleeding, stable agree with GI w/u, will involve IR would consider Left colon resection, given bleeding scan, electively. Or urgently, if pt worsens Will follow Thanks for consult! ALBERT PATRICIA MD Sep 10, 2016 17:42
[2016-09-11] VITALS (31 sets, daily range): BP systolic 109–191; BP diastolic 55–93
[2016-09-11] MEDS: fentaNYL PF VIAL 100 MCG/2 ML VIAL IV PRN ×2 (03:07→07:40)
[2016-09-11] MEDS: IV NORMAL SALINE 1000ML BAG 1,000 ML IV SCH (03:16)
[2016-09-11 04:47] LABS: BASO % 0 % (0-3); EOS % 0 % (0-3); LYMPH # 1.4 x10^3/uL (1.0-4.8); LYMPH % 14 % (24-48); MEAN CORPUSCULAR HEMOGLOBIN 30 pg (25-35); MEAN CORPUSCULAR HGB CONC 34 g/dL (31-37); MEAN CORPUSCULAR VOLUME 87 fL (79-100); MONO % 8 % (0-9); NEUT % 77 % (31-73); PLATELET COUNT 136 x10^3/uL (140-400); RED BLOOD COUNT 2.28 x10^6/uL (3.50-5.40); RED CELL DISTRIBUTION WIDTH 15.5 % (11.5-14.5)
[2016-09-11 04:59] LABS: HEMATOCRIT 19.9 % (36.0-47.0); HEMOGLOBIN 6.7 g/dL (12.0-15.5)
[2016-09-11 05:31] LABS: CALCIUM 8.6 mg/dL (8.5-10.1); CREATININE 1.7 mg/dL (0.6-1.0); GFR 34.8; POTASSIUM 4.7 mmol/L (3.5-5.1)
[2016-09-11] MEDS ORDERED: IOHEXOL 300 MG/ML 100ML VIAL. ONE (08:11)
[2016-09-11] MEDS ORDERED: HEPARIN for ARTERIAL LINE 1,500 ML ONE (08:12)
[2016-09-11] MEDS ORDERED: LIDOCAINE 1% / SOD BICARB 8.4% 20 ML VIAL. IJ ONE ×2 (08:12→09:15)
[2016-09-11] MEDS ORDERED: MIDAZOLAM HCL/PF 2 MG/2 ML VIAL. ONE (08:29)
--- NOTE | 2016-09-11 08:29 | PDOC1 ---
History and Physical Date of Admission Date of Admission DATE: 09/10/16 TIME: 1104 Identification/Chief Complaint Chief Complaint Rectal bleeding Problems: History of Present Illness History of Present Illness Patient is an 81 year old female who came to the ER with the above complaint. She reported the onset of bright red blood with a bowel movement earlier that day. The bleeding had persisted so she came to the ER. Patient had a similar episode of rectal bleeding last February. A bleeding scan at that time showed possible bleeding in the area of the splenic flexure. By the time a CT angiogram was done the bleeding had resolved and therefore no further treatment was done then. She did require a blood transfusion at that time. Since then she has had no rectal bleeding until the morning of admission. Bleeding scan yesterday showed activity in the area of the splenic flexure again. GI, IR and General Surgery were consulted and the patient was admitted for further treatment. Past Medical History Cardiovascular: HTN, Other (SVT) Pulmonary: No pertinent hx GI: Diverticulosis, GI bleed (02/16) Heme/Onc: Anemia NOS Psych: No pertinent hx Musculoskeletal: Other (chronic pain and stiffness right hip) Renal/: No pertinent hx Endocrine: Diabetes Past Surgical History Past Surgical History: Other (R GUSTABO, R TKA, R elbow surgery, back surgery) Family History Family History: No Significant Social History Smoke: No ALCOHOL: none Drugs: None Current Problem List Problem List Problems Medical Problems: (1) Lower GI bleed Status: Acute Problems: Current Medications Current Medications Current Medications Fentanyl Citrate (Fentanyl 2ml Vial) 25 mcg PRN Q15MIN PRN IV PAIN GREATER THAN 3/10 Last administered on 09/10/16 11:15; Start 09/10/16 at 10:00; Stop at 09:59 Ondansetron HCl (Zofran) 4 mg PRN Q8HRS PRN IV NAUSEA/VOMITING; Start 09/10/16 at 11:30; Stop 09/11/16 at 11:29 Fentanyl Citrate (Fentanyl 2ml Vial) 50 mcg PRN Q1HR PRN IV PAIN Last administered on 09/11/16 07:40; Start 09/10/16 at 11:30; Stop 09/11/16 at 11:29 Sodium Chloride 1,000 ml @ 125 mls/hr Q8H IV Last administered on 7/10/17at 14 :30; Start 09/10/16 at 11:16; Stop 09/11/16 at 11:15 Sodium Chloride 500 ml @ 500 mls/hr 1X ONCE IV Last administered on 11:35; Start 09/10/16 at 11:30; Stop 09/10/16 at 12:29; Status DC Iohexol (Omnipaque 350 Mg/ml) 90 ml 1X ONCE IV Last administered on 09/10/16 14:00; Start 09/10/16 at 13:30; Stop 09/10/16 at 13:35; Status DC Famotidine (Pepcid) 20 mg DAILY IVP Last administered on 09/10/16 14:29; Start 09/10/16 at 14:00 Diphenhydramine HCl (Benadryl) 25 mg PRN Q6HRS PRN IVP ITCHING Last administered on 09/10/16 17:36; Start 09/10/16 at 17:30 Active Scripts Active Metoprolol Tartrate 50 Mg Tablet 75 Mg PO BID 30 Days Feosol (Ferrous Sulfate) 325 Mg Tablet 325 Mg PO DAILYWBKFT 30 Days Reported Glimepiride 2 Mg Tablet 1 Tab PO DAILY08 Glimepiride 1 Mg Tablet 1 Tab PO DAILYBFRSUP Pravastatin Sodium 80 Mg Tablet 1 Tab PO QHS Metformin Hcl 500 Mg Tablet 1 Tab PO BID Lisinopril 40 Mg Tablet 1 Tab PO DAILY Triamterene-Hctz 75-50 Mg Tab (Triamterene/Hydrochlorothiazid) 1 Each Tablet 1 Tab PO DAILY Diltiazem 24HR Cd (Diltiazem Hcl) 240 Mg Cap.er.24h 240 Mg PO DAILY [place] 5-325 Tablet (Acetaminophen/Hydrocodone Bitart) 1 Each Tablet 1 Tab PO PRN Q6HRS PRN Allergies Allergies: Coded Allergies: morphine (Verified Allergy, Intermediate, itching, 03/10/15) I S O L A T I O N *CONTACT* (Verified Allergy, Unknown, 02/09/16) mrsa ROS General: YES: Other (Denies fevers or chills) ENDOCRINE: YES: Other (Diabetes has been pretty well controlled with her usual meds) Respiratory: YES: Other (Denies cough or SOA) Cardiovascular: yes Other (Denies chest pain or palpitations) Gastrointestinal: Yes Other (some intermittent crampy abdominal pain with recent bleeding, no pain prior to onset of bleeding yesterday) Musculoskeletal: Yes Other (chronic pain and stiffness right hip) Physical Exam General: Alert, Oriented X3, No acute distress HEENT: PERRLA, EOMI Lungs: Clear to auscultation Heart: S1S2, no murmurs Abdomen: Normal bowel sounds, Soft, Other (mild diffuse TTP without guarding or rebound) Extremities: No edema Vitals Vitals Vital Signs Date Time Temp Pulse Resp B/P (MAP) Pulse Ox O2 Delivery O2 Flow Rate FiO2 09/11/16 07:00 100 18 146/63 (90) 98 Nasal Cannula 1.0 09/11/16 06:59 98.7 98.7 Labs Labs Laboratory Tests Test 09/10/16 09:35 09/10/16 09:55 09/10/16 10:20 09/10/16 10:23 Stool Occult Blood Positive (NEG) White Blood Count 7.9 x10^3/uL (4.0-11.0) Red Blood Count 3.63 x10^6/uL (3.50-5.40) Hemoglobin 10.6 g/dL (12.0-15.5) Hematocrit 30.3 % (36.0-47.0) Mean Corpuscular Volume 83 fL (79-100) Mean Corpuscular Hemoglobin 29 pg (25-35) Mean Corpuscular Hemoglobin Concent 35 g/dL (31-37) Red Cell Distribution Width 16.1 % (11.5-14.5) Platelet Count 248 x10^3/uL (140-400) Neutrophils (%) (Auto) 79 % (31-73) Lymphocytes (%) (Auto) 13 % (24-48) Monocytes (%) (Auto) 6 % (0-9) Eosinophils (%) (Auto) 1 % (0-3) Basophils (%) (Auto) 1 % (0-3) Neutrophils # (Auto) 6.3 x10^3uL (1.8-7.7) Lymphocytes # (Auto) 1.0 x10^3/uL (1.0-4.8) Monocytes # (Auto) 0.5 x10^3/uL (0.0-1.1) Eosinophils # (Auto) 0.1 x10^3/uL (0.0-0.7) Basophils # (Auto) 0.0 x10^3/uL (0.0-0.2) Prothrombin Time 14.4 SEC (11.7-14.0) Prothromb Time International Ratio 1.2 (0.8-1.1) Activated Partial Thromboplast Time 29 SEC (24-38) Sodium Level 144 mmol/L (136-145) Potassium Level 3.8 mmol/L (3.5-5.1) Chloride Level 107 mmol/L (98-107) Carbon Dioxide Level 24 mmol/L (21-32) Anion Gap 13 (6-14) Blood Urea Nitrogen 20 mg/dL (7-20) Creatinine 1.2 mg/dL (0.6-1.0) Estimated GFR (Cockcroft-Gault) 52.0 BUN/Creatinine Ratio 17 (6-20) Glucose Level 198 mg/dL (70-99) Calcium Level 9.6 mg/dL (8.5-10.1) Total Bilirubin 0.2 mg/dL (0.2-1.0) Aspartate Amino Transf (AST/SGOT) 17 U/L (15-37) Alanine Aminotransferase (ALT/SGPT) 18 U/L (14-59) Alkaline Phosphatase 87 U/L (46-116) Troponin I Quantitative < 0.017 ng/mL (0.000-0.055) Total Protein 6.7 g/dL (6.4-8.2) Albumin 3.1 g/dL (3.4-5.0) Albumin/Globulin Ratio 0.9 (1.0-1.7) Lactic Acid Level 2.2 mmol/L (0.4-2.0) Urine Collection Type U cath Urine Color Yellow Urine Clarity Clear Urine pH 5.0 Urine Specific [place] 1.025 Urine Protein 100 mg/dL (NEG-TRACE) Urine Glucose (UA) Negative mg/dL (NEG) Urine Ketones (Stick) Negative mg/dL (NEG) Urine Blood Negative (NEG) Urine Nitrite Negative (NEG) Urine Bilirubin Negative (NEG) Urine Urobilinogen Dipstick 0.2 mg/dL (0.2 mg/dL) Urine Leukocyte Esterase Negative (NEG) Urine RBC 0 /HPF (0-2) Urine WBC 1-4 /HPF (0-4) Urine Transitional Epithelial Cells Occ /LPF Urine Amorphous Sediment Present /HPF Urine Bacteria Moderate /HPF (0-FEW) Test 09/10/16 13:00 09/10/16 17:10 09/10/16 17:38 09/10/16 23:40 Nasal Screen MRSA (PCR) Negative (Negative) Hemoglobin 7.0 g/dL (12.0-15.5) 9.0 g/dL (12.0-15.5) Glucose (Fingerstick) 255 mg/dL (70-99) Test 09/11/16 04:20 White Blood Count 10.0 x10^3/uL (4.0-11.0) Red Blood Count 2.28 x10^6/uL (3.50-5.40) Hemoglobin 6.7 g/dL (12.0-15.5) Hematocrit 19.9 % (36.0-47.0) Mean Corpuscular Volume 87 fL (79-100) Mean Corpuscular Hemoglobin 30 pg (25-35) Mean Corpuscular Hemoglobin Concent 34 g/dL (31-37) Red Cell Distribution Width 15.5 % (11.5-14.5) Platelet Count 136 x10^3/uL (140-400) Neutrophils (%) (Auto) 77 % (31-73) Lymphocytes (%) (Auto) 14 % (24-48) Monocytes (%) (Auto) 8 % (0-9) Eosinophils (%) (Auto) 0 % (0-3) Basophils (%) (Auto) 0 % (0-3) Neutrophils # (Auto) 7.7 x10^3uL (1.8-7.7) Lymphocytes # (Auto) 1.4 x10^3/uL (1.0-4.8) Monocytes # (Auto) 0.8 x10^3/uL (0.0-1.1) Eosinophils # (Auto) 0.0 x10^3/uL (0.0-0.7) Basophils # (Auto) 0.0 x10^3/uL (0.0-0.2) Sodium Level 145 mmol/L (136-145) Potassium Level 4.7 mmol/L (3.5-5.1) Chloride Level 110 mmol/L (98-107) Carbon Dioxide Level 24 mmol/L (21-32) Anion Gap 11 (6-14) Blood Urea Nitrogen 36 mg/dL (7-20) Creatinine 1.7 mg/dL (0.6-1.0) Estimated GFR (Cockcroft-Gault) 34.8 Glucose Level 215 mg/dL (70-99) Calcium Level 8.6 mg/dL (8.5-10.1) Laboratory Tests Test 09/10/16 09:35 09/10/16 09:55 09/10/16 10:20 09/10/16 10:23 Stool Occult Blood Positive (NEG) White Blood Count 7.9 x10^3/uL (4.0-11.0) Red Blood Count 3.63 x10^6/uL (3.50-5.40) Hemoglobin 10.6 g/dL (12.0-15.5) Hematocrit 30.3 % (36.0-47.0) Mean Corpuscular Volume 83 fL (79-100) Mean Corpuscular Hemoglobin 29 pg (25-35) Mean Corpuscular Hemoglobin Concent 35 g/dL (31-37) Red Cell Distribution Width 16.1 % (11.5-14.5) Platelet Count 248 x10^3/uL (140-400) Neutrophils (%) (Auto) 79 % (31-73) Lymphocytes (%) (Auto) 13 % (24-48) Monocytes (%) (Auto) 6 % (0-9) Eosinophils (%) (Auto) 1 % (0-3) Basophils (%) (Auto) 1 % (0-3) Neutrophils # (Auto) 6.3 x10^3uL (1.8-7.7) Lymphocytes # (Auto) 1.0 x10^3/uL (1.0-4.8) Monocytes # (Auto) 0.5 x10^3/uL (0.0-1.1) Eosinophils # (Auto) 0.1 x10^3/uL (0.0-0.7) Basophils # (Auto) 0.0 x10^3/uL (0.0-0.2) Prothrombin Time 14.4 SEC (11.7-14.0) Prothromb Time International Ratio 1.2 (0.8-1.1) Activated Partial Thromboplast Time 29 SEC (24-38) Sodium Level 144 mmol/L (136-145) Potassium Level 3.8 mmol/L (3.5-5.1) Chloride Level 107 mmol/L (98-107) Carbon Dioxide Level 24 mmol/L (21-32) Anion Gap 13 (6-14) Blood Urea Nitrogen 20 mg/dL (7-20) Creatinine 1.2 mg/dL (0.6-1.0) Estimated GFR (Cockcroft-Gault) 52.0 BUN/Creatinine Ratio 17 (6-20) Glucose Level 198 mg/dL (70-99) Calcium Level 9.6 mg/dL (8.5-10.1) Total Bilirubin 0.2 mg/dL (0.2-1.0) Aspartate Amino Transf (AST/SGOT) 17 U/L (15-37) Alanine Aminotransferase (ALT/SGPT) 18 U/L (14-59) Alkaline Phosphatase 87 U/L (46-116) Troponin I Quantitative < 0.017 ng/mL (0.000-0.055) Total Protein 6.7 g/dL (6.4-8.2) Albumin 3.1 g/dL (3.4-5.0) Albumin/Globulin Ratio 0.9 (1.0-1.7) Lactic Acid Level 2.2 mmol/L (0.4-2.0) Urine Collection Type U cath Urine Color Yellow Urine Clarity Clear Urine pH 5.0 Urine Specific [place] 1.025 Urine Protein 100 mg/dL (NEG-TRACE) Urine Glucose (UA) Negative mg/dL (NEG) Urine Ketones (Stick) Negative mg/dL (NEG) Urine Blood Negative (NEG) Urine Nitrite Negative (NEG) Urine Bilirubin Negative (NEG) Urine Urobilinogen Dipstick 0.2 mg/dL (0.2 mg/dL) Urine Leukocyte Esterase Negative (NEG) Urine RBC 0 /HPF (0-2) Urine WBC 1-4 /HPF (0-4) Urine Transitional Epithelial Cells Occ /LPF Urine Amorphous Sediment Present /HPF Urine Bacteria Moderate /HPF (0-FEW) Test 09/10/16 13:00 09/10/16 17:10 09/10/16 17:38 09/10/16 23:40 Nasal Screen MRSA (PCR) Negative (Negative) Hemoglobin 7.0 g/dL (12.0-15.5) 9.0 g/dL (12.0-15.5) Glucose (Fingerstick) 255 mg/dL (70-99) Test 09/11/16 04:20 White Blood Count 10.0 x10^3/uL (4.0-11.0) Red Blood Count 2.28 x10^6/uL (3.50-5.40) Hemoglobin 6.7 g/dL (12.0-15.5) Hematocrit 19.9 % (36.0-47.0) Mean Corpuscular Volume 87 fL (79-100) Mean Corpuscular Hemoglobin 30 pg (25-35) Mean Corpuscular Hemoglobin Concent 34 g/dL (31-37) Red Cell Distribution Width 15.5 % (11.5-14.5) Platelet Count 136 x10^3/uL (140-400) Neutrophils (%) (Auto) 77 % (31-73) Lymphocytes (%) (Auto) 14 % (24-48) Monocytes (%) (Auto) 8 % (0-9) Eosinophils (%) (Auto) 0 % (0-3) Basophils (%) (Auto) 0 % (0-3) Neutrophils # (Auto) 7.7 x10^3uL (1.8-7.7) Lymphocytes # (Auto) 1.4 x10^3/uL (1.0-4.8) Monocytes # (Auto) 0.8 x10^3/uL (0.0-1.1) Eosinophils # (Auto) 0.0 x10^3/uL (0.0-0.7) Basophils # (Auto) 0.0 x10^3/uL (0.0-0.2) Sodium Level 145 mmol/L (136-145) Potassium Level 4.7 mmol/L (3.5-5.1) Chloride Level 110 mmol/L (98-107) Carbon Dioxide Level 24 mmol/L (21-32) Anion Gap 11 (6-14) Blood Urea Nitrogen 36 mg/dL (7-20) Creatinine 1.7 mg/dL (0.6-1.0) Estimated GFR (Cockcroft-Gault) 34.8 Glucose Level 215 mg/dL (70-99) Calcium Level 8.6 mg/dL (8.5-10.1) VTE Prophylaxis Ordered VTE Prophylaxis Devices: Contraindicated VTE Pharmacological Prophylaxi: Contraindicated Assessment/Plan Assessment/Plan 1. Lower GI bleed - patient has continued to have intermittent blood per rectum overnight. She received several units of PRBC's in transfusion yesterday afternoon with initial improvement in her hemoglobin, but with continued bleeding overnight her hemoglobin was 6.7 this morning. Two more units of PRBC' s have been ordered for her. She is on her way to Interventional Radiology this morning for a mesenteric angiogram and embolization if possible. Vital signs have remained stable. Recheck CBC this PM and follow closely. Dr Moya has been consulted and is following also. 2. HTN - resume home meds when no longer NPO. 3. DM2 - has been well controlled with home meds, resume when no longer NPO. 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 MONI STACK MD Sep 11, 2016 08:29
[2016-09-11] MEDS ORDERED: IV RINGERS,LACTATED 1000ML 1,000 ML IV SCH (08:46)
[2016-09-11] MEDS ORDERED: ONDANSETRON PF 4 MG/2 ML VIAL. IV PRN (09:00)
[2016-09-11] MEDS ORDERED: LIDOCAINE 1% 1 ML SYRINGE. ID PRN (09:00)
[2016-09-11] MEDS: FAMOTIDINE 20 MG/2 ML VIAL IVP SCH (09:00)
[2016-09-11] MEDS ORDERED: fentaNYL PF VIAL 100 MCG/2 ML VIAL IV PRN ×2 (09:00)
[2016-09-11] MEDS ORDERED: PROCHLORPERAZINE 10 MG/2 ML VIAL. IV PRN (09:00)
[2016-09-11] MEDS ORDERED: fentaNYL PF VIAL 100 MCG/2 ML VIAL IV ONE (09:15)
[2016-09-11] MEDS ORDERED: MIDAZOLAM HCL/PF 2 MG/2 ML VIAL. IV ONE (09:15)
[2016-09-11] MEDS ORDERED: IOHEXOL 300 MG/ML 100ML VIAL. IART ONE (09:15)
--- NOTE | 2016-09-11 09:17 | PDOC ---
Objective: Objective: Bleeding overnight. Vital Signs: Vital Signs Date Time Temp Pulse Resp B/P (MAP) Pulse Ox O2 Delivery O2 Flow Rate FiO2 09/11/16 08:39 98.8 87 16 127/67 98.8 09/11/16 07:00 98 Nasal Cannula 1.0 Labs: Laboratory Tests Test 09/10/16 09:35 09/10/16 09:55 09/10/16 10:20 09/10/16 10:23 Stool Occult Blood Positive White Blood Count 7.9 x10^3/uL Red Blood Count 3.63 x10^6/uL Hemoglobin 10.6 g/dL Hematocrit 30.3 % Mean Corpuscular Volume 83 fL Mean Corpuscular Hemoglobin 29 pg Mean Corpuscular Hemoglobin Concent 35 g/dL Red Cell Distribution Width 16.1 % Platelet Count 248 x10^3/uL Neutrophils (%) (Auto) 79 % Lymphocytes (%) (Auto) 13 % Monocytes (%) (Auto) 6 % Eosinophils (%) (Auto) 1 % Basophils (%) (Auto) 1 % Neutrophils # (Auto) 6.3 x10^3uL Lymphocytes # (Auto) 1.0 x10^3/uL Monocytes # (Auto) 0.5 x10^3/uL Eosinophils # (Auto) 0.1 x10^3/uL Basophils # (Auto) 0.0 x10^3/uL Prothrombin Time 14.4 SEC Prothromb Time International Ratio 1.2 Activated Partial Thromboplast Time 29 SEC Sodium Level 144 mmol/L Potassium Level 3.8 mmol/L Chloride Level 107 mmol/L Carbon Dioxide Level 24 mmol/L Anion Gap 13 Blood Urea Nitrogen 20 mg/dL Creatinine 1.2 mg/dL Estimated GFR (Cockcroft-Gault) 52.0 BUN/Creatinine Ratio 17 Glucose Level 198 mg/dL Calcium Level 9.6 mg/dL Total Bilirubin 0.2 mg/dL Aspartate Amino Transf (AST/SGOT) 17 U/L Alanine Aminotransferase (ALT/SGPT) 18 U/L Alkaline Phosphatase 87 U/L Troponin I Quantitative < 0.017 ng/mL Total Protein 6.7 g/dL Albumin 3.1 g/dL Albumin/Globulin Ratio 0.9 Lactic Acid Level 2.2 mmol/L Urine Collection Type U cath Urine Color Yellow Urine Clarity Clear Urine pH 5.0 Urine Specific [place] 1.025 Urine Protein 100 mg/dL Urine Glucose (UA) Negative mg/dL Urine Ketones (Stick) Negative mg/dL Urine Blood Negative Urine Nitrite Negative Urine Bilirubin Negative Urine Urobilinogen Dipstick 0.2 mg/dL Urine Leukocyte Esterase Negative Urine RBC 0 /HPF Urine WBC 1-4 /HPF Urine Transitional Epithelial Cells Occ /LPF Urine Amorphous Sediment Present /HPF Urine Bacteria Moderate /HPF Test 09/10/16 13:00 09/10/16 17:10 09/10/16 17:38 09/10/16 23:40 Nasal Screen MRSA (PCR) Negative Hemoglobin 7.0 g/dL 9.0 g/dL Glucose (Fingerstick) 255 mg/dL Test 09/11/16 04:20 White Blood Count 10.0 x10^3/uL Red Blood Count 2.28 x10^6/uL Hemoglobin 6.7 g/dL Hematocrit 19.9 % Mean Corpuscular Volume 87 fL Mean Corpuscular Hemoglobin 30 pg Mean Corpuscular Hemoglobin Concent 34 g/dL Red Cell Distribution Width 15.5 % Platelet Count 136 x10^3/uL Neutrophils (%) (Auto) 77 % Lymphocytes (%) (Auto) 14 % Monocytes (%) (Auto) 8 % Eosinophils (%) (Auto) 0 % Basophils (%) (Auto) 0 % Neutrophils # (Auto) 7.7 x10^3uL Lymphocytes # (Auto) 1.4 x10^3/uL Monocytes # (Auto) 0.8 x10^3/uL Eosinophils # (Auto) 0.0 x10^3/uL Basophils # (Auto) 0.0 x10^3/uL Sodium Level 145 mmol/L Potassium Level 4.7 mmol/L Chloride Level 110 mmol/L Carbon Dioxide Level 24 mmol/L Anion Gap 11 Blood Urea Nitrogen 36 mg/dL Creatinine 1.7 mg/dL Estimated GFR (Cockcroft-Gault) 34.8 Glucose Level 215 mg/dL Calcium Level 8.6 mg/dL Imaging: Mesenteric angiogram: No evidence of active bleeding identified. SMA and SKIP selectively injected, Possible fixed area of narrowing on the proximal descending colon, appears mildly hyperemic. Angioseal to right groin Patient hemodynamically stable during exam, actually hypertensive. No bloody stools during exam. PE: GEN: NAD LUNGS: clear HEART: tachy ABD: non-tender NEURO/PSYCH: A&O x 3 A/P: Recurrent GI bleeding/hematochezia, anemia -bleeding scan +, CTA -, angiogram - -h/o diverticular disease, last colonoscopy ~3 years ago -has transfused pRBCs and FFP, Hgb 6.7 this a.m., had PICC placed -NPO on empiric IV H2 curtis -- Out for angiogram, will follow. PAGE SCHOFIELD Sep 11, 2016 09:17 JUAN C RUEDA MD Sep 11, 2016 15:24
--- NOTE | 2016-09-11 09:42 | PDOC ---
BRIEF OPERATIVE NOTE Date: Sep 11, 2016 Pre-Op Diagnosis GI bleed, localized to LUQ colon by tagged scan. CTA negative. Episodic bleeding throughout the [facility] Procedure Performed Mesenteric Angiogram Surgeon Grant EBL 5 Anesthesia Type: Conscious Sedation Findings No evidence of active bleeding identified. SMA and SKIP selectively injected, Possible fixed area of narrowing on the proximal descending colon, appears mildly hyperemic. Angioseal to right groin Patient hemodynamically stable during exam, actually hypertensive. No bloody stools during exam. Complications None ELIAS RODRIGUEZ MD Sep 11, 2016 09:42
--- NOTE | 2016-09-11 10:28 | PDOC ---
SURGICAL PROGRESS NOTE Subjective Pt feels better today, no stools for several hours, extensive bleeding yesterday , IR did not identify bleeding Vital Signs Vital Signs Date Time Temp Pulse Resp B/P (MAP) Pulse Ox O2 Delivery O2 Flow Rate FiO2 09/11/16 09:30 86 21 98 Room Air 09/11/16 08:39 98.8 127/67 98.8 09/11/16 07:00 1.0 I&O Intake and Output 09/11/16 07:00 Intake Total 2191 ml Output Total 0 ml Balance 2191 ml Intake Oral 0 ml IV Total 768 ml Blood Product 1393 ml Blood Product IV Normal Saline Flush 30 ml Output Urine Total 0 ml # Voids 1 # Bowel Movements 10 General: Alert, Oriented X3, Cooperative, No acute distress Abdomen: Soft, No tenderness Labs Laboratory Tests Test 09/10/16 09:35 09/10/16 09:55 09/10/16 10:20 09/10/16 10:23 Stool Occult Blood Positive (NEG) White Blood Count 7.9 x10^3/uL (4.0-11.0) Red Blood Count 3.63 x10^6/uL (3.50-5.40) Hemoglobin 10.6 g/dL (12.0-15.5) Hematocrit 30.3 % (36.0-47.0) Mean Corpuscular Volume 83 fL (79-100) Mean Corpuscular Hemoglobin 29 pg (25-35) Mean Corpuscular Hemoglobin Concent 35 g/dL (31-37) Red Cell Distribution Width 16.1 % (11.5-14.5) Platelet Count 248 x10^3/uL (140-400) Neutrophils (%) (Auto) 79 % (31-73) Lymphocytes (%) (Auto) 13 % (24-48) Monocytes (%) (Auto) 6 % (0-9) Eosinophils (%) (Auto) 1 % (0-3) Basophils (%) (Auto) 1 % (0-3) Neutrophils # (Auto) 6.3 x10^3uL (1.8-7.7) Lymphocytes # (Auto) 1.0 x10^3/uL (1.0-4.8) Monocytes # (Auto) 0.5 x10^3/uL (0.0-1.1) Eosinophils # (Auto) 0.1 x10^3/uL (0.0-0.7) Basophils # (Auto) 0.0 x10^3/uL (0.0-0.2) Prothrombin Time 14.4 SEC (11.7-14.0) Prothromb Time International Ratio 1.2 (0.8-1.1) Activated Partial Thromboplast Time 29 SEC (24-38) Sodium Level 144 mmol/L (136-145) Potassium Level 3.8 mmol/L (3.5-5.1) Chloride Level 107 mmol/L (98-107) Carbon Dioxide Level 24 mmol/L (21-32) Anion Gap 13 (6-14) Blood Urea Nitrogen 20 mg/dL (7-20) Creatinine 1.2 mg/dL (0.6-1.0) Estimated GFR (Cockcroft-Gault) 52.0 BUN/Creatinine Ratio 17 (6-20) Glucose Level 198 mg/dL (70-99) Calcium Level 9.6 mg/dL (8.5-10.1) Total Bilirubin 0.2 mg/dL (0.2-1.0) Aspartate Amino Transf (AST/SGOT) 17 U/L (15-37) Alanine Aminotransferase (ALT/SGPT) 18 U/L (14-59) Alkaline Phosphatase 87 U/L (46-116) Troponin I Quantitative < 0.017 ng/mL (0.000-0.055) Total Protein 6.7 g/dL (6.4-8.2) Albumin 3.1 g/dL (3.4-5.0) Albumin/Globulin Ratio 0.9 (1.0-1.7) Lactic Acid Level 2.2 mmol/L (0.4-2.0) Urine Collection Type U cath Urine Color Yellow Urine Clarity Clear Urine pH 5.0 Urine Specific [place] 1.025 Urine Protein 100 mg/dL (NEG-TRACE) Urine Glucose (UA) Negative mg/dL (NEG) Urine Ketones (Stick) Negative mg/dL (NEG) Urine Blood Negative (NEG) Urine Nitrite Negative (NEG) Urine Bilirubin Negative (NEG) Urine Urobilinogen Dipstick 0.2 mg/dL (0.2 mg/dL) Urine Leukocyte Esterase Negative (NEG) Urine RBC 0 /HPF (0-2) Urine WBC 1-4 /HPF (0-4) Urine Transitional Epithelial Cells Occ /LPF Urine Amorphous Sediment Present /HPF Urine Bacteria Moderate /HPF (0-FEW) Test 09/10/16 13:00 09/10/16 17:10 09/10/16 17:38 09/10/16 23:40 Nasal Screen MRSA (PCR) Negative (Negative) Hemoglobin 7.0 g/dL (12.0-15.5) 9.0 g/dL (12.0-15.5) Glucose (Fingerstick) 255 mg/dL (70-99) Test 09/11/16 04:20 White Blood Count 10.0 x10^3/uL (4.0-11.0) Red Blood Count 2.28 x10^6/uL (3.50-5.40) Hemoglobin 6.7 g/dL (12.0-15.5) Hematocrit 19.9 % (36.0-47.0) Mean Corpuscular Volume 87 fL (79-100) Mean Corpuscular Hemoglobin 30 pg (25-35) Mean Corpuscular Hemoglobin Concent 34 g/dL (31-37) Red Cell Distribution Width 15.5 % (11.5-14.5) Platelet Count 136 x10^3/uL (140-400) Neutrophils (%) (Auto) 77 % (31-73) Lymphocytes (%) (Auto) 14 % (24-48) Monocytes (%) (Auto) 8 % (0-9) Eosinophils (%) (Auto) 0 % (0-3) Basophils (%) (Auto) 0 % (0-3) Neutrophils # (Auto) 7.7 x10^3uL (1.8-7.7) Lymphocytes # (Auto) 1.4 x10^3/uL (1.0-4.8) Monocytes # (Auto) 0.8 x10^3/uL (0.0-1.1) Eosinophils # (Auto) 0.0 x10^3/uL (0.0-0.7) Basophils # (Auto) 0.0 x10^3/uL (0.0-0.2) Sodium Level 145 mmol/L (136-145) Potassium Level 4.7 mmol/L (3.5-5.1) Chloride Level 110 mmol/L (98-107) Carbon Dioxide Level 24 mmol/L (21-32) Anion Gap 11 (6-14) Blood Urea Nitrogen 36 mg/dL (7-20) Creatinine 1.7 mg/dL (0.6-1.0) Estimated GFR (Cockcroft-Gault) 34.8 Glucose Level 215 mg/dL (70-99) Calcium Level 8.6 mg/dL (8.5-10.1) Laboratory Tests Test 09/10/16 13:00 09/10/16 17:10 09/10/16 17:38 09/10/16 23:40 Nasal Screen MRSA (PCR) Negative (Negative) Hemoglobin 7.0 g/dL (12.0-15.5) 9.0 g/dL (12.0-15.5) Glucose (Fingerstick) 255 mg/dL (70-99) Test 09/11/16 04:20 White Blood Count 10.0 x10^3/uL (4.0-11.0) Red Blood Count 2.28 x10^6/uL (3.50-5.40) Hemoglobin 6.7 g/dL (12.0-15.5) Hematocrit 19.9 % (36.0-47.0) Mean Corpuscular Volume 87 fL (79-100) Mean Corpuscular Hemoglobin 30 pg (25-35) Mean Corpuscular Hemoglobin Concent 34 g/dL (31-37) Red Cell Distribution Width 15.5 % (11.5-14.5) Platelet Count 136 x10^3/uL (140-400) Neutrophils (%) (Auto) 77 % (31-73) Lymphocytes (%) (Auto) 14 % (24-48) Monocytes (%) (Auto) 8 % (0-9) Eosinophils (%) (Auto) 0 % (0-3) Basophils (%) (Auto) 0 % (0-3) Neutrophils # (Auto) 7.7 x10^3uL (1.8-7.7) Lymphocytes # (Auto) 1.4 x10^3/uL (1.0-4.8) Monocytes # (Auto) 0.8 x10^3/uL (0.0-1.1) Eosinophils # (Auto) 0.0 x10^3/uL (0.0-0.7) Basophils # (Auto) 0.0 x10^3/uL (0.0-0.2) Sodium Level 145 mmol/L (136-145) Potassium Level 4.7 mmol/L (3.5-5.1) Chloride Level 110 mmol/L (98-107) Carbon Dioxide Level 24 mmol/L (21-32) Anion Gap 11 (6-14) Blood Urea Nitrogen 36 mg/dL (7-20) Creatinine 1.7 mg/dL (0.6-1.0) Estimated GFR (Cockcroft-Gault) 34.8 Glucose Level 215 mg/dL (70-99) Calcium Level 8.6 mg/dL (8.5-10.1) Problem List Problems Medical Problems: (1) Lower GI bleed Status: Acute Assessment/Plan diverticular bleeding, positive bleeding scan at splenic flexure, appears to be stabilizing cont supportive care if additional bleeding, will need to consider OR Problems: ALBERT PATRICIA MD Sep 11, 2016 10:28 am
[2016-09-11 16:00] LABS: HEMATOCRIT 23.8 % (36.0-47.0); HEMOGLOBIN 8.2 g/dL (12.0-15.5); RED BLOOD COUNT 2.75 x10^6/uL (3.50-5.40); RED CELL DISTRIBUTION WIDTH 14.8 % (11.5-14.5); WHITE BLOOD COUNT 11.4 x10^3/uL (4.0-11.0)
--- NOTE | 2016-09-11 16:10 | RAD ---
Mesenteric angiography 09/11/2016 Indication: GI bleed Discussion: Patient is an 81-year-old female with intermittent gastrointestinal hemorrhage. Tagged red cell scan yesterday demonstrated bleeding likely in the area of the splenic flexure of the colon. Subsequent CTA however was negative, failing to further localize the site of bleeding. The patient is hemodynamically stable yesterday, but subsequently dropped her hemoglobin had multiple bloody bowel movements overnight. The risks and benefits of the procedure including but not limited to bleeding, vascular injury, arterial injury and colonic ischemia, renal injury due to contrast nephropathy, and pain were discussed the patient. Informed consent was obtained. The patient was brought to fluoroscopy suite and placed in the supine position. Timeout procedure was performed. The right common femoral artery was accessed using micropuncture technique and direct ultrasound guidance. A 5 Austrian vascular sheath was placed. A Sos 2 catheter was advanced into the ostium of the SMA. The catheter was exchanged over a [employer] wire for an angled glide catheter. SMA angiography was performed demonstrating no evidence of active extravasation of contrast or active bleeding. Retrograde filling of the gastroduodenal artery and hepatic arteries noted. Some retrograde filling of the splenic artery was also seen. 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 Subsequently the Sos catheter was advanced to the ostium of the SKIP and multiple angiograms were obtained. No active extravasation of contrast was identified suggestive of active bleeding. Angiograms were obtained to the right common femoral sheath demonstrating a puncture site amenable to closure device use. Angio-Seal device was deployed for hemostasis. Sterile dressing was applied. No immediate complications were identified. Notably the patient remained hemodynamically normal throughout the procedure, it was actually hypertensive the majority of the case. Fluoroscopy time: 13.4 minutes. Dose area product 599 Gycm2 The procedures performed conscious sedation including continuous cardiopulmonary monitoring via a dedicated sedation nurse. Sedation time was approximately 1 hour. Impression: No evidence of active extravasation of contrast or evidence of active gastrointestinal hemorrhage is identified.
[2016-09-11] MEDS: LISINOPRIL 40 MG TABLET. PO SCH (17:41)
[2016-09-11] MEDS: TRIAMTERENE/HCTZ 75/50MG TABLET. PO SCH (17:41)
[2016-09-11] MEDS: HYDROcodone/APAP 5/325MG 1 TAB TABLET PO PRN (20:07)
[2016-09-11] MEDS: METOPROLOL TART IMMED RELEASE 50 MG TABLET. PO SCH (20:08)
[2016-09-12] VITALS (28 sets, daily range): BP systolic 96–179; BP diastolic 5–86
[2016-09-12 07:09] LABS: CALCIUM 8.3 mg/dL (8.5-10.1); CREATININE 1.8 mg/dL (0.6-1.0); GFR 32.6; POTASSIUM 4.1 mmol/L (3.5-5.1)
[2016-09-12 07:10] LABS: HEMATOCRIT 21.4 % (36.0-47.0); HEMOGLOBIN 7.3 g/dL (12.0-15.5); RED BLOOD COUNT 2.41 x10^6/uL (3.50-5.40); RED CELL DISTRIBUTION WIDTH 15.4 % (11.5-14.5); WHITE BLOOD COUNT 10.6 x10^3/uL (4.0-11.0)
[2016-09-12] MEDS: TRIAMTERENE/HCTZ 75/50MG TABLET. PO SCH (08:40)
[2016-09-12] MEDS: LISINOPRIL 40 MG TABLET. PO SCH (08:41)
[2016-09-12] MEDS: FERROUS SULFATE 325 MG TABLET. PO SCH (08:44)
[2016-09-12] MEDS: METOPROLOL TART IMMED RELEASE 50 MG TABLET. PO SCH ×2 (08:44→20:23)
[2016-09-12] MEDS ORDERED: DEXTROSE 50% 25 GM / 50ML DISP.SYRIN. IV PRN (08:45)
[2016-09-12] MEDS: FAMOTIDINE 20 MG/2 ML VIAL IVP SCH (08:45)
--- NOTE | 2016-09-12 08:50 | PDOC ---
PROGRESS NOTES Subjective Subjective Patient reports one small stool with blood last evening, no other bleeding seen. Denies abdominal pain. Objective Objective Vital Signs Date Time Temp Pulse Resp B/P (MAP) Pulse Ox O2 Delivery O2 Flow Rate FiO2 09/12/16 06:02 67 18 125/63 (83) 98 Room Air 09/12/16 04:05 98.6 98.6 09/11/16 07:00 1.0 Intake and Output 09/12/16 07:00 Intake Total 730 ml Output Total 0 ml Balance 730 ml Intake Oral 50 ml Blood Product IV Normal Saline Flush 680 ml Output Urine Total 0 ml # Voids 4 # Bowel Movements 1 Physical Exam Abdomen: Normal bowel sounds, Soft, No tenderness Heart: Regular rate Extremities: No edema General: Alert, Oriented X3, No acute distress Lungs: Clear to auscultation Assessment Assessment Problems Medical Problems: (1) Lower GI bleed Status: Acute Plan Plan of Care 1. Lower GI bleed with acute blood loss anemia - stable overnight. No active bleeding seen on angiogram yesterday morning so IR unable to embolize. Hgb decreased this AM, transfusion ordered. Continue to observe closely. Trial of clear liquids today and up to chair, continue ICU care. Dr Moya following. 2. HTN - BP elevated yesterday, resumed on home meds with much improvement in BP. Will hold Maxzide and Lisinopril this AM due to prerenal azotemia and BERRY, continue other home meds. 3. Prerenal azotemia and BERRY - IVF orders from admission apparently ended yesterday and we were not notified of this. Patient was NPO so didn't receive any hydration... IVF and clear liquids ordered now, follow lab. 4. DM2 - check FSBG and use SS as needed, holding Amaryl until she resumes regular diet. Comment Review of Relevant I have reviewed the following items veronique (where applicable) has been applied. Labs Laboratory Tests Test 09/10/16 09:35 09/10/16 09:55 09/10/16 10:20 09/10/16 10:23 Stool Occult Blood Positive (NEG) White Blood Count 7.9 x10^3/uL (4.0-11.0) Red Blood Count 3.63 x10^6/uL (3.50-5.40) Hemoglobin 10.6 g/dL (12.0-15.5) Hematocrit 30.3 % (36.0-47.0) Mean Corpuscular Volume 83 fL (79-100) Mean Corpuscular Hemoglobin 29 pg (25-35) Mean Corpuscular Hemoglobin Concent 35 g/dL (31-37) Red Cell Distribution Width 16.1 % (11.5-14.5) Platelet Count 248 x10^3/uL (140-400) Neutrophils (%) (Auto) 79 % (31-73) Lymphocytes (%) (Auto) 13 % (24-48) Monocytes (%) (Auto) 6 % (0-9) Eosinophils (%) (Auto) 1 % (0-3) Basophils (%) (Auto) 1 % (0-3) Neutrophils # (Auto) 6.3 x10^3uL (1.8-7.7) Lymphocytes # (Auto) 1.0 x10^3/uL (1.0-4.8) Monocytes # (Auto) 0.5 x10^3/uL (0.0-1.1) Eosinophils # (Auto) 0.1 x10^3/uL (0.0-0.7) Basophils # (Auto) 0.0 x10^3/uL (0.0-0.2) Prothrombin Time 14.4 SEC (11.7-14.0) Prothromb Time International Ratio 1.2 (0.8-1.1) Activated Partial Thromboplast Time 29 SEC (24-38) Sodium Level 144 mmol/L (136-145) Potassium Level 3.8 mmol/L (3.5-5.1) Chloride Level 107 mmol/L (98-107) Carbon Dioxide Level 24 mmol/L (21-32) Anion Gap 13 (6-14) Blood Urea Nitrogen 20 mg/dL (7-20) Creatinine 1.2 mg/dL (0.6-1.0) Estimated GFR (Cockcroft-Gault) 52.0 BUN/Creatinine Ratio 17 (6-20) Glucose Level 198 mg/dL (70-99) Calcium Level 9.6 mg/dL (8.5-10.1) Total Bilirubin 0.2 mg/dL (0.2-1.0) Aspartate Amino Transf (AST/SGOT) 17 U/L (15-37) Alanine Aminotransferase (ALT/SGPT) 18 U/L (14-59) Alkaline Phosphatase 87 U/L (46-116) Troponin I Quantitative < 0.017 ng/mL (0.000-0.055) Total Protein 6.7 g/dL (6.4-8.2) Albumin 3.1 g/dL (3.4-5.0) Albumin/Globulin Ratio 0.9 (1.0-1.7) Lactic Acid Level 2.2 mmol/L (0.4-2.0) Urine Collection Type U cath Urine Color Yellow Urine Clarity Clear Urine pH 5.0 Urine Specific Bussey 1.025 Urine Protein 100 mg/dL (NEG-TRACE) Urine Glucose (UA) Negative mg/dL (NEG) Urine Ketones (Stick) Negative mg/dL (NEG) Urine Blood Negative (NEG) Urine Nitrite Negative (NEG) Urine Bilirubin Negative (NEG) Urine Urobilinogen Dipstick 0.2 mg/dL (0.2 mg/dL) Urine Leukocyte Esterase Negative (NEG) Urine RBC 0 /HPF (0-2) Urine WBC 1-4 /HPF (0-4) Urine Transitional Epithelial Cells Occ /LPF Urine Amorphous Sediment Present /HPF Urine Bacteria Moderate /HPF (0-FEW) Test 09/10/16 13:00 09/10/16 17:10 09/10/16 17:38 09/10/16 23:40 Nasal Screen MRSA (PCR) Negative (Negative) Hemoglobin 7.0 g/dL (12.0-15.5) 9.0 g/dL (12.0-15.5) Glucose (Fingerstick) 255 mg/dL (70-99) Test 09/11/16 04:20 09/11/16 15:19 09/12/16 06:35 White Blood Count 10.0 x10^3/uL (4.0-11.0) 11.4 x10^3/uL (4.0-11.0) 10.6 x10^3/uL (4.0-11.0) Red Blood Count 2.28 x10^6/uL (3.50-5.40) 2.75 x10^6/uL (3.50-5.40) 2.41 x10^6/uL (3.50-5.40) Hemoglobin 6.7 g/dL (12.0-15.5) 8.2 g/dL (12.0-15.5) 7.3 g/dL (12.0-15.5) Hematocrit 19.9 % (36.0-47.0) 23.8 % (36.0-47.0) 21.4 % (36.0-47.0) Mean Corpuscular Volume 87 fL (79-100) 87 fL (79-100) 89 fL (79-100) Mean Corpuscular Hemoglobin 30 pg (25-35) 30 pg (25-35) 30 pg (25-35) Mean Corpuscular Hemoglobin Concent 34 g/dL (31-37) 35 g/dL (31-37) 34 g/dL (31-37) Red Cell Distribution Width 15.5 % (11.5-14.5) 14.8 % (11.5-14.5) 15.4 % (11.5-14.5) Platelet Count 136 x10^3/uL (140-400) 121 x10^3/uL (140-400) 115 x10^3/uL (140-400) Neutrophils (%) (Auto) 77 % (31-73) Lymphocytes (%) (Auto) 14 % (24-48) Monocytes (%) (Auto) 8 % (0-9) Eosinophils (%) (Auto) 0 % (0-3) Basophils (%) (Auto) 0 % (0-3) Neutrophils # (Auto) 7.7 x10^3uL (1.8-7.7) Lymphocytes # (Auto) 1.4 x10^3/uL (1.0-4.8) Monocytes # (Auto) 0.8 x10^3/uL (0.0-1.1) Eosinophils # (Auto) 0.0 x10^3/uL (0.0-0.7) Basophils # (Auto) 0.0 x10^3/uL (0.0-0.2) Sodium Level 145 mmol/L (136-145) 146 mmol/L (136-145) Potassium Level 4.7 mmol/L (3.5-5.1) 4.1 mmol/L (3.5-5.1) Chloride Level 110 mmol/L (98-107) 112 mmol/L (98-107) Carbon Dioxide Level 24 mmol/L (21-32) 27 mmol/L (21-32) Anion Gap 11 (6-14) 7 (6-14) Blood Urea Nitrogen 36 mg/dL (7-20) 43 mg/dL (7-20) Creatinine 1.7 mg/dL (0.6-1.0) 1.8 mg/dL (0.6-1.0) Estimated GFR (Cockcroft-Gault) 34.8 32.6 Glucose Level 215 mg/dL (70-99) 145 mg/dL (70-99) Calcium Level 8.6 mg/dL (8.5-10.1) 8.3 mg/dL (8.5-10.1) Laboratory Tests Test 09/11/16 15:19 09/12/16 06:35 White Blood Count 11.4 x10^3/uL (4.0-11.0) 10.6 x10^3/uL (4.0-11.0) Red Blood Count 2.75 x10^6/uL (3.50-5.40) 2.41 x10^6/uL (3.50-5.40) Hemoglobin 8.2 g/dL (12.0-15.5) 7.3 g/dL (12.0-15.5) Hematocrit 23.8 % (36.0-47.0) 21.4 % (36.0-47.0) Mean Corpuscular Volume 87 fL (79-100) 89 fL (79-100) Mean Corpuscular Hemoglobin 30 pg (25-35) 30 pg (25-35) Mean Corpuscular Hemoglobin Concent 35 g/dL (31-37) 34 g/dL (31-37) Red Cell Distribution Width 14.8 % (11.5-14.5) 15.4 % (11.5-14.5) Platelet Count 121 x10^3/uL (140-400) 115 x10^3/uL (140-400) Sodium Level 146 mmol/L (136-145) Potassium Level 4.1 mmol/L (3.5-5.1) Chloride Level 112 mmol/L (98-107) Carbon Dioxide Level 27 mmol/L (21-32) Anion Gap 7 (6-14) Blood Urea Nitrogen 43 mg/dL (7-20) Creatinine 1.8 mg/dL (0.6-1.0) Estimated GFR (Cockcroft-Gault) 32.6 Glucose Level 145 mg/dL (70-99) Calcium Level 8.3 mg/dL (8.5-10.1) Microbiology 09/10/16 Urine Culture - Preliminary, Resulted 09/10/16 Urine Culture Result 1 (INGE) - Preliminary, Resulted Medications Current Medications Fentanyl Citrate (Fentanyl 2ml Vial) 25 mcg PRN Q15MIN PRN IV PAIN GREATER THAN 3/10 Last administered on 09/10/16 11:15; Start 09/10/16 at 10:00; Stop at 09:59; Status DC Ondansetron HCl (Zofran) 4 mg PRN Q8HRS PRN IV NAUSEA/VOMITING; Start 09/10/16 at 11:30; Stop 09/11/16 at 11:29; Status DC Fentanyl Citrate (Fentanyl 2ml Vial) 50 mcg PRN Q1HR PRN IV PAIN Last administered on 09/11/16 07:40; Start 09/10/16 at 11:30; Stop 09/11/16 at 11:29 ; Status DC Sodium Chloride 1,000 ml @ 125 mls/hr Q8H IV Last administered on 09/10/16 14 :30; Start 09/10/16 at 11:16; Stop 09/11/16 at 11:15; Status DC Sodium Chloride 500 ml @ 500 mls/hr 1X ONCE IV Last administered on 11:35; Start 09/10/16 at 11:30; Stop 09/10/16 at 12:29; Status DC Iohexol (Omnipaque 350 Mg/ml) 90 ml 1X ONCE IV Last administered on 09/10/16 14:00; Start 09/10/16 at 13:30; Stop 09/10/16 at 13:35; Status DC Famotidine (Pepcid) 20 mg DAILY IVP Last administered on 09/10/16 14:29; Start 09/10/16 at 14:00 Diphenhydramine HCl (Benadryl) 25 mg PRN Q6HRS PRN IVP ITCHING Last administered on 09/10/16 17:36; Start 09/10/16 at 17:30 Iohexol (Omnipaque 300 Mg/ml) 100 ml STK-MED ONCE .ROUTE ; Start 09/11/16 at 08: 11; Stop 09/11/16 at 08:12; Status DC Lidocaine/Sodium Bicarbonate (Buffered Lidocaine 1%) 20 ml STK-MED ONCE IJ ; Start 09/11/16 at 08:12; Stop 09/11/16 at 08:13; Status DC Heparin Sodium/ Sodium Chloride 1,500 ml @ As Directed STK-MED ONCE .ROUTE ; Start 09/11/16 at 08:12; Stop 09/11/16 at 08:13; Status DC Midazolam HCl (Versed) 2 mg STK-MED ONCE .ROUTE ; Start 09/11/16 at 08:29; Stop 09/11/16 at 08:30; Status DC Ondansetron HCl (Zofran) 4 mg PRN Q6HRS PRN IV NAUSEA/VOMITING; Start 09/11/16 at 09:00; Stop 09/12/16 at 08:59 Fentanyl Citrate (Fentanyl 2ml Vial) 25 mcg PRN Q5MIN PRN IV MILD PAIN; Start 09/11/16 at 09:00; Stop 09/12/16 at 08:59 Fentanyl Citrate (Fentanyl 2ml Vial) 50 mcg PRN Q5MIN PRN IV MODERATE PAIN; Start 09/11/16 at 09:00; Stop 09/12/16 at 08:59 Ringer's Solution 1,000 ml @ 30 mls/hr Q24H IV ; Start 09/11/16 at 08:46; Stop 09/11/16 at 20:45; Status DC Lidocaine HCl 2 ml PRN 1X PRN ID PRIOR TO IV START; Start 09/11/16 at 09:00; Stop 09/12/16 at 08:59 Prochlorperazine Edisylate (Compazine) 5 mg PACU PRN PRN IV NAUSEA, MRX1; Start 09/11/16 at 09:00; Stop 09/12/16 at 08:59 Heparin Sodium/ Sodium Chloride 1,000 unit 1X ONCE IART Last administered on t 09:26; Start 09/11/16 at 09:15; Stop 09/11/16 at 09:16; Status DC Lidocaine/Sodium Bicarbonate (Buffered Lidocaine 1%) 20 ml 1X ONCE IJ Last administered on 09/11/16 09:28; Start 09/11/16 at 09:15; Stop 09/11/16 at 09:16 ; Status DC Midazolam HCl (Versed) 2 mg 1X ONCE IV Last administered on 09/11/16 09:28; Start 09/11/16 at 09:15; Stop 09/11/16 at 09:16; Status DC Fentanyl Citrate (Fentanyl 2ml Vial) 100 mcg 1X ONCE IV Last administered on 09:28; Start 09/11/16 at 09:15; Stop 09/11/16 at 09:16; Status DC Iohexol (Omnipaque 300 Mg/ml) 100 ml 1X ONCE IART Last administered on 09:28; Start 09/11/16 at 09:15; Stop 09/11/16 at 09:16; Status DC Diltiazem HCl (Cardizem 24hr Cd) 240 mg DAILY PO Last administered on 17:41; Start 09/11/16 at 17:00 Ferrous Sulfate (Feosol) 325 mg DAILYWBKFT PO ; Start 09/12/16 at 08:00 Acetaminophen/ Hydrocodone Bitart (Lortab 5/325) 1 tab PRN Q6HRS PRN PO PAIN Last administered on 09/11/16 20:07; Start 09/11/16 at 16:30 Lisinopril (Prinivil) 40 mg DAILY PO Last administered on 09/11/16 17:41; Start 09/11/16 at 17:00 Metoprolol Tartrate (Lopressor) 75 mg BID PO Last administered on 09/11/16 20: 08; Start 09/11/16 at 21:00 Triamterene/HCTZ (Maxzide 75/50mg) 1 tab DAILY PO Last administered on 17:41; Start 09/11/16 at 17:00 Active Scripts Active Metoprolol Tartrate 50 Mg Tablet 75 Mg PO BID 30 Days Feosol (Ferrous Sulfate) 325 Mg Tablet 325 Mg PO DAILYWBKFT 30 Days Reported Glimepiride 2 Mg Tablet 1 Tab PO DAILY08 Glimepiride 1 Mg Tablet 1 Tab PO DAILYBFRSUP Pravastatin Sodium 80 Mg Tablet 1 Tab PO QHS Metformin Hcl 500 Mg Tablet 1 Tab PO BID Lisinopril 40 Mg Tablet 1 Tab PO DAILY Triamterene-Hctz 75-50 Mg Tab (Triamterene/Hydrochlorothiazid) 1 Each Tablet 1 Tab PO DAILY Diltiazem 24HR Cd (Diltiazem Hcl) 240 Mg Cap.er.24h 240 Mg PO DAILY Hudson 5-325 Tablet (Acetaminophen/Hydrocodone Bitart) 1 Each Tablet 1 Tab PO PRN Q6HRS PRN Vitals/I & O Vital Sign - Last 24 Hours 09/11/16 09/11/16 09/11/16 09/11/16 09:28 09:30 10:00 11:00 Pulse 86 88 98 Resp 21 21 19 27 B/P (MAP) 173/93 (119) 153/90 (111) Pulse Ox 98 98 98 97 O2 Delivery Room Air Room Air Room Air Room Air 09/11/16 09/11/16 09/11/16 09/11/16 12:00 12:00 13:00 14:00 Temp 98.0 98.0 Pulse 96 98 97 Resp 21 B/P (MAP) 130/56 (80) 144/70 (94) 191/80 (117) Pulse Ox 96 98 98 O2 Delivery Room Air Room Air Room Air Room Air 09/11/16 09/11/16 09/11/16 09/11/16 15:00 16:00 16:00 17:00 Temp 98.7 98.7 Pulse 102 91 92 Resp 24 11 22 B/P (MAP) 191/80 (117) 175/78 (110) 153/62 (92) Pulse Ox 98 95 96 O2 Delivery Room Air Room Air Room Air Room Air 09/11/16 09/11/16 09/11/16 09/11/16 17:41 17:41 18:00 19:00 Temp 99.0 99.0 Pulse 92 92 92 100 Resp 10 18 B/P (MAP) 153/62 153/62 168/69 (102) 171/71 (104) Pulse Ox 98 97 O2 Delivery Room Air Room Air 09/11/16 09/11/16 09/11/16 09/11/16 20:00 20:00 20:07 20:08 Pulse 100 103 Resp 18 B/P (MAP) 185/77 (113) 185/77 Pulse Ox 98 O2 Delivery Room Air Room Air Room Air 09/11/16 09/11/16 09/11/16 09/11/16 21:10 21:13 22:00 23:00 Pulse 73 63 60 Resp 18 18 20 16 B/P (MAP) 132/55 (80) 123/61 (81) 109/60 (76) Pulse Ox 98 100 100 O2 Delivery Room Air Room Air Room Air Room Air 09/11/16 09/12/16 09/12/16 09/12/16 23:56 00:06 01:20 02:00 Temp 98.4 98.4 Pulse 61 60 60 Resp 18 18 18 B/P (MAP) 96/62 (73) 117/58 (77) 101/51 (68) Pulse Ox 99 100 99 O2 Delivery Room Air Room Air Room Air Room Air 09/12/16 09/12/16 09/12/16 09/12/16 03:05 04:05 04:05 05:00 Temp 98.6 98.6 Pulse 73 75 68 Resp 18 18 18 B/P (MAP) 114/60 (78) 110/50 (70) 116/56 (76) Pulse Ox 98 98 O2 Delivery Room Air Room Air Room Air Room Air 09/12/16 06:02 Pulse 67 Resp 18 B/P (MAP) 125/63 (83) Pulse Ox 98 O2 Delivery Room Air Intake and Output 09/11/16 09/11/16 09/12/16 15:00 23:00 07:00 Intake Total 680 ml 50 ml 0 ml Output Total 0 ml 0 ml 0 ml Balance 680 ml 50 ml 0 ml MONI STACK MD Sep 12, 2016 08:50
[2016-09-12] MEDS: IV 1/2 NORMAL SALINE 1,000 ML IV SCH ×3 (08:51→22:52)
[2016-09-12] MEDS ORDERED: ALTEPLASE 2 MG VIAL INT CAT ONE (11:45)
--- NOTE | 2016-09-12 11:46 | PDOC ---
SURGICAL PROGRESS NOTE Subjective Pt sitting up in chair, reports soreness, but otherwise doing well Vital Signs Vital Signs Date Time Temp Pulse Resp B/P (MAP) Pulse Ox O2 Delivery O2 Flow Rate FiO2 09/12/16 11:00 98.6 75 21 118/51 (73) 100 Room Air 98.6 09/11/16 07:00 1.0 I&O Intake and Output 09/12/16 07:00 Intake Total 730 ml Output Total 0 ml Balance 730 ml Intake Oral 50 ml Blood Product IV Normal Saline Flush 680 ml Output Urine Total 0 ml # Voids 4 # Bowel Movements 1 General: Alert, Oriented X3, Cooperative, No acute distress Abdomen: Soft, No tenderness Labs Laboratory Tests Test 09/10/16 13:00 09/10/16 17:10 09/10/16 17:38 09/10/16 23:40 Nasal Screen MRSA (PCR) Negative (Negative) Hemoglobin 7.0 g/dL (12.0-15.5) 9.0 g/dL (12.0-15.5) Glucose (Fingerstick) 255 mg/dL (70-99) Test 09/11/16 04:20 09/11/16 15:19 09/12/16 06:35 White Blood Count 10.0 x10^3/uL (4.0-11.0) 11.4 x10^3/uL (4.0-11.0) 10.6 x10^3/uL (4.0-11.0) Red Blood Count 2.28 x10^6/uL (3.50-5.40) 2.75 x10^6/uL (3.50-5.40) 2.41 x10^6/uL (3.50-5.40) Hemoglobin 6.7 g/dL (12.0-15.5) 8.2 g/dL (12.0-15.5) 7.3 g/dL (12.0-15.5) Hematocrit 19.9 % (36.0-47.0) 23.8 % (36.0-47.0) 21.4 % (36.0-47.0) Mean Corpuscular Volume 87 fL (79-100) 87 fL (79-100) 89 fL (79-100) Mean Corpuscular Hemoglobin 30 pg (25-35) 30 pg (25-35) 30 pg (25-35) Mean Corpuscular Hemoglobin Concent 34 g/dL (31-37) 35 g/dL (31-37) 34 g/dL (31-37) Red Cell Distribution Width 15.5 % (11.5-14.5) 14.8 % (11.5-14.5) 15.4 % (11.5-14.5) Platelet Count 136 x10^3/uL (140-400) 121 x10^3/uL (140-400) 115 x10^3/uL (140-400) Neutrophils (%) (Auto) 77 % (31-73) Lymphocytes (%) (Auto) 14 % (24-48) Monocytes (%) (Auto) 8 % (0-9) Eosinophils (%) (Auto) 0 % (0-3) Basophils (%) (Auto) 0 % (0-3) Neutrophils # (Auto) 7.7 x10^3uL (1.8-7.7) Lymphocytes # (Auto) 1.4 x10^3/uL (1.0-4.8) Monocytes # (Auto) 0.8 x10^3/uL (0.0-1.1) Eosinophils # (Auto) 0.0 x10^3/uL (0.0-0.7) Basophils # (Auto) 0.0 x10^3/uL (0.0-0.2) Sodium Level 145 mmol/L (136-145) 146 mmol/L (136-145) Potassium Level 4.7 mmol/L (3.5-5.1) 4.1 mmol/L (3.5-5.1) Chloride Level 110 mmol/L (98-107) 112 mmol/L (98-107) Carbon Dioxide Level 24 mmol/L (21-32) 27 mmol/L (21-32) Anion Gap 11 (6-14) 7 (6-14) Blood Urea Nitrogen 36 mg/dL (7-20) 43 mg/dL (7-20) Creatinine 1.7 mg/dL (0.6-1.0) 1.8 mg/dL (0.6-1.0) Estimated GFR (Cockcroft-Gault) 34.8 32.6 Glucose Level 215 mg/dL (70-99) 145 mg/dL (70-99) Calcium Level 8.6 mg/dL (8.5-10.1) 8.3 mg/dL (8.5-10.1) Laboratory Tests Test 09/11/16 15:19 09/12/16 06:35 White Blood Count 11.4 x10^3/uL (4.0-11.0) 10.6 x10^3/uL (4.0-11.0) Red Blood Count 2.75 x10^6/uL (3.50-5.40) 2.41 x10^6/uL (3.50-5.40) Hemoglobin 8.2 g/dL (12.0-15.5) 7.3 g/dL (12.0-15.5) Hematocrit 23.8 % (36.0-47.0) 21.4 % (36.0-47.0) Mean Corpuscular Volume 87 fL (79-100) 89 fL (79-100) Mean Corpuscular Hemoglobin 30 pg (25-35) 30 pg (25-35) Mean Corpuscular Hemoglobin Concent 35 g/dL (31-37) 34 g/dL (31-37) Red Cell Distribution Width 14.8 % (11.5-14.5) 15.4 % (11.5-14.5) Platelet Count 121 x10^3/uL (140-400) 115 x10^3/uL (140-400) Sodium Level 146 mmol/L (136-145) Potassium Level 4.1 mmol/L (3.5-5.1) Chloride Level 112 mmol/L (98-107) Carbon Dioxide Level 27 mmol/L (21-32) Anion Gap 7 (6-14) Blood Urea Nitrogen 43 mg/dL (7-20) Creatinine 1.8 mg/dL (0.6-1.0) Estimated GFR (Cockcroft-Gault) 32.6 Glucose Level 145 mg/dL (70-99) Calcium Level 8.3 mg/dL (8.5-10.1) Problem List Problems Medical Problems: (1) Lower GI bleed Status: Acute Assessment/Plan appears to be stabilizing given the multiple episodes, would consider elective resection. Ideally, would be good to have colonoscopy and tattooing of the area of highest concern (suspect splenic flexure) prior to. encourage pt to f/u and gave business card Problems: ALBERT PATRICIA MD Sep 12, 2016 11:46
[2016-09-12] MEDS: INSULIN ASPART 300 UNITS/3 ML INSULN.PEN SQ SCH ×2 (11:59→17:45)
--- NOTE | 2016-09-12 12:14 | PDOC ---
Subjective: Subjective: Small amount of bleeding last night, "like jelly." A little sore but otherwise feeling well. Was glad to try liquids. Objective: Objective: Per RN - some bleeding last night, none today. Up to chair, feeling better, tolerating clears. Planned to transfuse another 2 units pRBCs. Vital Signs: Vital Signs Date Time Temp Pulse Resp B/P (MAP) Pulse Ox O2 Delivery O2 Flow Rate FiO2 09/12/16 12:00 71 22 114/5 (41) 100 Room Air 09/12/16 11:00 98.6 98.6 09/11/16 07:00 1.0 Labs: Laboratory Tests Test 09/11/16 15:19 09/12/16 06:35 09/12/16 11:57 White Blood Count 11.4 x10^3/uL 10.6 x10^3/uL Red Blood Count 2.75 x10^6/uL 2.41 x10^6/uL Hemoglobin 8.2 g/dL 7.3 g/dL Hematocrit 23.8 % 21.4 % Mean Corpuscular Volume 87 fL 89 fL Mean Corpuscular Hemoglobin 30 pg 30 pg Mean Corpuscular Hemoglobin Concent 35 g/dL 34 g/dL Red Cell Distribution Width 14.8 % 15.4 % Platelet Count 121 x10^3/uL 115 x10^3/uL Sodium Level 146 mmol/L Potassium Level 4.1 mmol/L Chloride Level 112 mmol/L Carbon Dioxide Level 27 mmol/L Anion Gap 7 Blood Urea Nitrogen 43 mg/dL Creatinine 1.8 mg/dL Estimated GFR (Cockcroft-Gault) 32.6 Glucose Level 145 mg/dL Calcium Level 8.3 mg/dL Glucose (Fingerstick) 240 mg/dL PE: GEN: NAD, up to chair LUNGS: CTAB HEART: RRR ABD: S/ND/NT NEURO/PSYCH: A & O 3 A/P: Recurrent GI bleeding/hematochezia -bleeding scan +, CTA -, angiogram - -h/o diverticular disease, last colonoscopy ~3 years ago -Hgb 7.3 today, tolerating clears -- Bleeding seems resolved. Agree w/ transfusion, continue w/ clears. D/w Dr. Moya - will review w/ Dr. Ken elective colonoscopy w/ tattoo prior to elective resection. PAGE SCHOFIELD Sep 12, 2016 12:14
[2016-09-12] MEDS: HYDROcodone/APAP 5/325MG 1 TAB TABLET PO PRN ×2 (13:27→19:28)
[2016-09-12 18:31] LABS: HEMATOCRIT 27.7 % (36.0-47.0); HEMOGLOBIN 9.4 g/dL (12.0-15.5); RED BLOOD COUNT 3.19 x10^6/uL (3.50-5.40); RED CELL DISTRIBUTION WIDTH 16.1 % (11.5-14.5)
[2016-09-13] VITALS (27 sets, daily range): BP systolic 131–186; BP diastolic 52–88
[2016-09-13 06:06] LABS: CALCIUM 8.2 mg/dL (8.5-10.1); CREATININE 1.3 mg/dL (0.6-1.0); GFR 47.5; POTASSIUM 3.9 mmol/L (3.5-5.1)
[2016-09-13 06:08] LABS: HEMATOCRIT 26.9 % (36.0-47.0); HEMOGLOBIN 8.9 g/dL (12.0-15.5); RED BLOOD COUNT 3.07 x10^6/uL (3.50-5.40); RED CELL DISTRIBUTION WIDTH 16.2 % (11.5-14.5); WHITE BLOOD COUNT 11.3 x10^3/uL (4.0-11.0)
[2016-09-13] MEDS: FERROUS SULFATE 325 MG TABLET. PO SCH (07:56)
[2016-09-13] MEDS: LISINOPRIL 40 MG TABLET. PO SCH (07:56)
[2016-09-13] MEDS: TRIAMTERENE/HCTZ 75/50MG TABLET. PO SCH (07:57)
[2016-09-13] MEDS: METOPROLOL TART IMMED RELEASE 50 MG TABLET. PO SCH ×2 (07:57→20:52)
[2016-09-13] MEDS: FAMOTIDINE 20 MG/2 ML VIAL IVP SCH (07:58)
[2016-09-13] MEDS: IV 1/2 NORMAL SALINE 1,000 ML IV SCH ×2 (07:58→17:50)
[2016-09-13] MEDS: INSULIN ASPART 300 UNITS/3 ML INSULN.PEN SQ SCH ×3 (08:02→17:00)
--- NOTE | 2016-09-13 09:15 | PDOC ---
PROGRESS NOTES Subjective Subjective Patient feels better, denies pain. Tolerating clears without problems, no further bloody stools. Objective Objective Vital Signs Date Time Temp Pulse Resp B/P (MAP) Pulse Ox O2 Delivery O2 Flow Rate FiO2 09/13/16 07:57 84 158/70 09/13/16 07:00 99.4 22 99 Room Air 99.4 09/12/16 21:29 1.0 Intake and Output 09/13/16 07:00 Intake Total 2976 ml Output Total 1995 ml Balance 981 ml IV Total 1550 ml Blood Product 600 ml Blood Product IV Normal Saline Flush 826 ml Output Urine Total 1995 ml # Voids 5 Physical Exam Abdomen: Normal bowel sounds, Soft, No tenderness Heart: Regular rate Extremities: No edema General: Alert, Oriented X3, No acute distress Lungs: Clear to auscultation Assessment Assessment Problems Medical Problems: (1) Lower GI bleed Status: Acute Plan Plan of Care 1. Lower GI bleed with anemia - stable, no evidence of further bleeding. Hgb adequate after transfusion yesterday. Advance to ADA diet today, recheck CBC in AM. Agree with plan for outpatient colonoscopy followed by elective partial colectomy to decrease risk of future bleeding. 2. HTN - control improving, now back on all her home meds. 3. DM2 - stable, continue SS insulin as needed. 4. Prerenal azotemia with BERRY - lab improving with IVF and po hydration. Will d/ c IVF this evening, patient encouraged to continue good po intake. Comment Review of Relevant I have reviewed the following items veronique (where applicable) has been applied. Labs Laboratory Tests Test 09/11/16 15:19 09/12/16 06:35 09/12/16 11:57 09/12/16 17:43 White Blood Count 11.4 x10^3/uL (4.0-11.0) 10.6 x10^3/uL (4.0-11.0) Red Blood Count 2.75 x10^6/uL (3.50-5.40) 2.41 x10^6/uL (3.50-5.40) Hemoglobin 8.2 g/dL (12.0-15.5) 7.3 g/dL (12.0-15.5) Hematocrit 23.8 % (36.0-47.0) 21.4 % (36.0-47.0) Mean Corpuscular Volume 87 fL (79-100) 89 fL (79-100) Mean Corpuscular Hemoglobin 30 pg (25-35) 30 pg (25-35) Mean Corpuscular Hemoglobin Concent 35 g/dL (31-37) 34 g/dL (31-37) Red Cell Distribution Width 14.8 % (11.5-14.5) 15.4 % (11.5-14.5) Platelet Count 121 x10^3/uL (140-400) 115 x10^3/uL (140-400) Sodium Level 146 mmol/L (136-145) Potassium Level 4.1 mmol/L (3.5-5.1) Chloride Level 112 mmol/L (98-107) Carbon Dioxide Level 27 mmol/L (21-32) Anion Gap 7 (6-14) Blood Urea Nitrogen 43 mg/dL (7-20) Creatinine 1.8 mg/dL (0.6-1.0) Estimated GFR (Cockcroft-Gault) 32.6 Glucose Level 145 mg/dL (70-99) Calcium Level 8.3 mg/dL (8.5-10.1) Glucose (Fingerstick) 240 mg/dL (70-99) 158 mg/dL (70-99) Test 09/12/16 18:20 09/12/16 21:28 09/13/16 05:45 09/13/16 08:00 White Blood Count 12.0 x10^3/uL (4.0-11.0) 11.3 x10^3/uL (4.0-11.0) Red Blood Count 3.19 x10^6/uL (3.50-5.40) 3.07 x10^6/uL (3.50-5.40) Hemoglobin 9.4 g/dL (12.0-15.5) 8.9 g/dL (12.0-15.5) Hematocrit 27.7 % (36.0-47.0) 26.9 % (36.0-47.0) Mean Corpuscular Volume 87 fL (79-100) 88 fL (79-100) Mean Corpuscular Hemoglobin 29 pg (25-35) 29 pg (25-35) Mean Corpuscular Hemoglobin Concent 34 g/dL (31-37) 33 g/dL (31-37) Red Cell Distribution Width 16.1 % (11.5-14.5) 16.2 % (11.5-14.5) Platelet Count 114 x10^3/uL (140-400) 105 x10^3/uL (140-400) Glucose (Fingerstick) 111 mg/dL (70-99) 159 mg/dL (70-99) Sodium Level 144 mmol/L (136-145) Potassium Level 3.9 mmol/L (3.5-5.1) Chloride Level 112 mmol/L (98-107) Carbon Dioxide Level 24 mmol/L (21-32) Anion Gap 8 (6-14) Blood Urea Nitrogen 36 mg/dL (7-20) Creatinine 1.3 mg/dL (0.6-1.0) Estimated GFR (Cockcroft-Gault) 47.5 Glucose Level 151 mg/dL (70-99) Calcium Level 8.2 mg/dL (8.5-10.1) Laboratory Tests Test 09/12/16 11:57 09/12/16 17:43 09/12/16 18:20 09/12/16 21:28 Glucose (Fingerstick) 240 mg/dL (70-99) 158 mg/dL (70-99) 111 mg/dL (70-99) White Blood Count 12.0 x10^3/uL (4.0-11.0) Red Blood Count 3.19 x10^6/uL (3.50-5.40) Hemoglobin 9.4 g/dL (12.0-15.5) Hematocrit 27.7 % (36.0-47.0) Mean Corpuscular Volume 87 fL (79-100) Mean Corpuscular Hemoglobin 29 pg (25-35) Mean Corpuscular Hemoglobin Concent 34 g/dL (31-37) Red Cell Distribution Width 16.1 % (11.5-14.5) Platelet Count 114 x10^3/uL (140-400) Test 09/13/16 05:45 09/13/16 08:00 White Blood Count 11.3 x10^3/uL (4.0-11.0) Red Blood Count 3.07 x10^6/uL (3.50-5.40) Hemoglobin 8.9 g/dL (12.0-15.5) Hematocrit 26.9 % (36.0-47.0) Mean Corpuscular Volume 88 fL (79-100) Mean Corpuscular Hemoglobin 29 pg (25-35) Mean Corpuscular Hemoglobin Concent 33 g/dL (31-37) Red Cell Distribution Width 16.2 % (11.5-14.5) Platelet Count 105 x10^3/uL (140-400) Sodium Level 144 mmol/L (136-145) Potassium Level 3.9 mmol/L (3.5-5.1) Chloride Level 112 mmol/L (98-107) Carbon Dioxide Level 24 mmol/L (21-32) Anion Gap 8 (6-14) Blood Urea Nitrogen 36 mg/dL (7-20) Creatinine 1.3 mg/dL (0.6-1.0) Estimated GFR (Cockcroft-Gault) 47.5 Glucose Level 151 mg/dL (70-99) Calcium Level 8.2 mg/dL (8.5-10.1) Glucose (Fingerstick) 159 mg/dL (70-99) Microbiology 09/10/16 Urine Culture - Final, Complete 09/10/16 Urine Culture Result 1 (INGE) - Final, Complete Medications Current Medications Fentanyl Citrate (Fentanyl 2ml Vial) 25 mcg PRN Q15MIN PRN IV PAIN GREATER THAN 3/10 Last administered on 09/10/16 11:15; Start 09/10/16 at 10:00; Stop at 09:59; Status DC Ondansetron HCl (Zofran) 4 mg PRN Q8HRS PRN IV NAUSEA/VOMITING; Start 09/10/16 at 11:30; Stop 09/11/16 at 11:29; Status DC Fentanyl Citrate (Fentanyl 2ml Vial) 50 mcg PRN Q1HR PRN IV PAIN Last administered on 09/11/16 07:40; Start 09/10/16 at 11:30; Stop 09/11/16 at 11:29 ; Status DC Sodium Chloride 1,000 ml @ 125 mls/hr Q8H IV Last administered on 09/10/16 14 :30; Start 09/10/16 at 11:16; Stop 09/11/16 at 11:15; Status DC Sodium Chloride 500 ml @ 500 mls/hr 1X ONCE IV Last administered on 11:35; Start 09/10/16 at 11:30; Stop 09/10/16 at 12:29; Status DC Iohexol (Omnipaque 350 Mg/ml) 90 ml 1X ONCE IV Last administered on 09/10/16 14:00; Start 09/10/16 at 13:30; Stop 09/10/16 at 13:35; Status DC Famotidine (Pepcid) 20 mg DAILY IVP Last administered on 09/13/16 07:58; Start 09/10/16 at 14:00 Diphenhydramine HCl (Benadryl) 25 mg PRN Q6HRS PRN IVP ITCHING Last administered on 09/10/16 17:36; Start 09/10/16 at 17:30 Iohexol (Omnipaque 300 Mg/ml) 100 ml STK-MED ONCE .ROUTE ; Start 09/11/16 at 08: 11; Stop 09/11/16 at 08:12; Status DC Lidocaine/Sodium Bicarbonate (Buffered Lidocaine 1%) 20 ml STK-MED ONCE IJ ; Start 09/11/16 at 08:12; Stop 09/11/16 at 08:13; Status DC Heparin Sodium/ Sodium Chloride 1,500 ml @ As Directed STK-MED ONCE .ROUTE ; Start 09/11/16 at 08:12; Stop 09/11/16 at 08:13; Status DC Midazolam HCl (Versed) 2 mg STK-MED ONCE .ROUTE ; Start 09/11/16 at 08:29; Stop 09/11/16 at 08:30; Status DC Ondansetron HCl (Zofran) 4 mg PRN Q6HRS PRN IV NAUSEA/VOMITING; Start 09/11/16 at 09:00; Stop 09/12/16 at 08:59; Status DC Fentanyl Citrate (Fentanyl 2ml Vial) 25 mcg PRN Q5MIN PRN IV MILD PAIN; Start 09/11/16 at 09:00; Stop 09/12/16 at 08:59; Status DC Fentanyl Citrate (Fentanyl 2ml Vial) 50 mcg PRN Q5MIN PRN IV MODERATE PAIN; Start 09/11/16 at 09:00; Stop 09/12/16 at 08:59; Status DC Ringer's Solution 1,000 ml @ 30 mls/hr Q24H IV ; Start 09/11/16 at 08:46; Stop 09/11/16 at 20:45; Status DC Lidocaine HCl 2 ml PRN 1X PRN ID PRIOR TO IV START; Start 09/11/16 at 09:00; Stop 09/12/16 at 08:59; Status DC Prochlorperazine Edisylate (Compazine) 5 mg PACU PRN PRN IV NAUSEA, MRX1; Start 09/11/16 at 09:00; Stop 09/12/16 at 08:59; Status DC Heparin Sodium/ Sodium Chloride 1,000 unit 1X ONCE IART Last administered on 09:26; Start 09/11/16 at 09:15; Stop 09/11/16 at 09:16; Status DC Lidocaine/Sodium Bicarbonate (Buffered Lidocaine 1%) 20 ml 1X ONCE IJ Last administered on 09/11/16 09:28; Start 09/11/16 at 09:15; Stop 09/11/16 at 09:16 ; Status DC Midazolam HCl (Versed) 2 mg 1X ONCE IV Last administered on 09/11/16 09:28; Start 09/11/16 at 09:15; Stop 09/11/16 at 09:16; Status DC Fentanyl Citrate (Fentanyl 2ml Vial) 100 mcg 1X ONCE IV Last administered on 09:28; Start 09/11/16 at 09:15; Stop 09/11/16 at 09:16; Status DC Iohexol (Omnipaque 300 Mg/ml) 100 ml 1X ONCE IART Last administered on 09:28; Start 09/11/16 at 09:15; Stop 09/11/16 at 09:16; Status DC Diltiazem HCl (Cardizem 24hr Cd) 240 mg DAILY PO Last administered on 07:56; Start 09/11/16 at 17:00 Ferrous Sulfate (Feosol) 325 mg DAILYWBKFT PO Last administered on 09/13/16 07 :56; Start 09/12/16 at 08:00 Acetaminophen/ Hydrocodone Bitart (Lortab 5/325) 1 tab PRN Q6HRS PRN PO PAIN Last administered on 09/12/16 19:28; Start 09/11/16 at 16:30 Lisinopril (Prinivil) 40 mg DAILY PO Last administered on 09/13/16 07:56; Start 09/11/16 at 17:00 Metoprolol Tartrate (Lopressor) 75 mg BID PO Last administered on 09/13/16 07: 57; Start 09/11/16 at 21:00 Triamterene/HCTZ (Maxzide 75/50mg) 1 tab DAILY PO Last administered on 07:57; Start 09/11/16 at 17:00 Insulin Aspart (NovoLOG) 0-5 UNITS TIDWMEALS SQ Last administered on 09/13/16 08:02; Start 09/12/16 at 12:00 Dextrose (Dextrose 50%-Water Syringe) 12.5 gm PRN Q15MIN PRN IV SEE COMMENTS; Start 09/12/16 at 08:45 Sodium Chloride 1,000 ml @ 100 mls/hr Q10H IV Last administered on 09/13/16 07:58; Start 09/12/16 at 08:45 Alteplase, Recombinant (Cathflo) 2 mg 1X ONCE INT CAT Last administered on 11:50; Start 09/12/16 at 11:45; Stop 09/12/16 at 11:46; Status DC Active Scripts Active Metoprolol Tartrate 50 Mg Tablet 75 Mg PO BID 30 Days Feosol (Ferrous Sulfate) 325 Mg Tablet 325 Mg PO DAILYWBKFT 30 Days Reported Glimepiride 2 Mg Tablet 1 Tab PO DAILY08 Glimepiride 1 Mg Tablet 1 Tab PO DAILYBFRSUP Pravastatin Sodium 80 Mg Tablet 1 Tab PO QHS Metformin Hcl 500 Mg Tablet 1 Tab PO BID Lisinopril 40 Mg Tablet 1 Tab PO DAILY Triamterene-Hctz 75-50 Mg Tab (Triamterene/Hydrochlorothiazid) 1 Each Tablet 1 Tab PO DAILY Diltiazem 24HR Cd (Diltiazem Hcl) 240 Mg Cap.er.24h 240 Mg PO DAILY [place] 5-325 Tablet (Acetaminophen/Hydrocodone Bitart) 1 Each Tablet 1 Tab PO PRN Q6HRS PRN Vitals/I & O Vital Sign - Last 24 Hours 09/12/16 09/12/16 09/12/1612/17 10:00 11:00 12:00 12:00 Temp 98.6 98.6 Pulse 78 75 71 Resp 27 21 22 B/P (MAP) 131/63 (85) 118/51 (73) 114/5 (41) Pulse Ox 100 100 100 O2 Delivery Room Air Room Air Room Air Room Air 09/12/16 09/12/16 09/12/16 09/12/16 13:00 13:27 13:51 14:00 Temp 98.6 98.6 Pulse 67 71 70 Resp 20 21 20 32 B/P (MAP) 128/57 (80) 128/57 123/61 (81) Pulse Ox 100 100 O2 Delivery Room Air Room Air Room Air 09/12/16 09/12/16 09/12/16 09/12/16 14:04 14:27 15:00 15:26 Temp 98.7 99.1 98.7 99.1 Pulse 69 68 64 Resp 29 22 29 29 B/P (MAP) 121/58 132/60 (84) 136/62 Pulse Ox 100 O2 Delivery Room Air 09/12/16 09/12/16 09/12/16 09/12/16 15:41 16:00 16:00 17:00 Temp 98.9 98.6 98.9 98.6 Pulse 64 68 66 Resp 22 25 41 B/P (MAP) 132/60 132/60 (84) 141/72 (95) Pulse Ox 100 100 O2 Delivery Room Air Room Air Room Air 09/12/16 09/12/16 09/12/16 09/12/16 18:00 19:00 19:28 20:00 Pulse 76 76 Resp 33 33 19 B/P (MAP) 164/74 (104) 164/74 (104) Pulse Ox 100 100 100 O2 Delivery Room Air Room Air Room Air Room Air 09/12/16 09/12/16 09/12/16 09/12/16 20:00 20:23 21:00 21:29 Temp 98.6 98.6 Pulse 72 71 72 Resp 21 19 B/P (MAP) 179/86 (117) 179/86 151/72 (98) Pulse Ox 100 99 100 O2 Delivery Room Air Room Air Room Air O2 Flow Rate 1.0 09/12/16 09/12/16 09/13/16 09/13/16 22:00 23:00 00:00 00:00 Temp 98.5 98.5 Pulse 64 64 66 Resp 27 17 20 B/P (MAP) 165/74 (104) 169/81 (110) 131/68 (89) Pulse Ox 99 99 99 O2 Delivery Room Air Room Air Room Air Room Air 09/13/16 09/13/16 09/13/16 09/13/16 01:00 02:00 03:00 04:00 Pulse 84 70 71 74 Resp 25 18 16 19 B/P (MAP) 168/70 (102) 176/80 (112) 151/71 (97) 186/83 (117) Pulse Ox 100 99 98 99 O2 Delivery Room Air Room Air Room Air Room Air 09/13/16 09/13/16 09/13/16 09/13/16 04:00 04:00 05:00 06:00 Temp 98.7 98.7 Pulse 83 53 Resp 17 30 B/P (MAP) 146/72 (96) 146/75 (98) Pulse Ox 98 97 O2 Delivery Room Air Room Air Room Air 09/13/16 09/13/16 09/13/16 09/13/16 07:00 07:56 07:56 07:57 Temp 99.4 99.4 Pulse 86 84 84 84 Resp 22 B/P (MAP) 158/70 (99) 158/70 158/70 158/70 Pulse Ox 99 O2 Delivery Room Air Intake and Output 09/12/16 09/12/16 09/13/16 15:00 23:00 07:00 Intake Total 319 ml 1599 ml 1058 ml Output Total 375 ml 1620 ml Balance 319 ml 1224 ml -562 ml MONI STACK MD Sep 13, 2016 09:15
--- NOTE | 2016-09-13 09:48 | PDOC ---
Subjective: Subjective: Doing better. Objective: Objective: Per RN - no bleeding. Vital Signs: Vital Signs Date Time Temp Pulse Resp B/P (MAP) Pulse Ox O2 Delivery O2 Flow Rate FiO2 09/13/16 09:00 74 25 165/76 (105) 100 Room Air 09/13/16 07:00 99.4 99.4 09/12/16 21:29 1.0 Labs: Laboratory Tests Test 09/12/16 11:57 09/12/16 17:43 09/12/16 18:20 09/12/16 21:28 Glucose (Fingerstick) 240 mg/dL 158 mg/dL 111 mg/dL White Blood Count 12.0 x10^3/uL Red Blood Count 3.19 x10^6/uL Hemoglobin 9.4 g/dL Hematocrit 27.7 % Mean Corpuscular Volume 87 fL Mean Corpuscular Hemoglobin 29 pg Mean Corpuscular Hemoglobin Concent 34 g/dL Red Cell Distribution Width 16.1 % Platelet Count 114 x10^3/uL Test 09/13/16 05:45 09/13/16 08:00 White Blood Count 11.3 x10^3/uL Red Blood Count 3.07 x10^6/uL Hemoglobin 8.9 g/dL Hematocrit 26.9 % Mean Corpuscular Volume 88 fL Mean Corpuscular Hemoglobin 29 pg Mean Corpuscular Hemoglobin Concent 33 g/dL Red Cell Distribution Width 16.2 % Platelet Count 105 x10^3/uL Sodium Level 144 mmol/L Potassium Level 3.9 mmol/L Chloride Level 112 mmol/L Carbon Dioxide Level 24 mmol/L Anion Gap 8 Blood Urea Nitrogen 36 mg/dL Creatinine 1.3 mg/dL Estimated GFR (Cockcroft-Gault) 47.5 Glucose Level 151 mg/dL Calcium Level 8.2 mg/dL Glucose (Fingerstick) 159 mg/dL PE: GEN: NAD, up to chair, was asleep LUNGS: clear HEART: RRR ABD: maybe some RLQ discomfort/stable NEURO/PSYCH: A & O 3 A/P: Recurrent GI bleeding/hematochezia -bleeding scan +, CTA -, angiogram - -h/o diverticular disease, last colonoscopy ~3 years ago after first bleed, ( second 02/2016) -Hgb improving after transfusions BERRY - improved -- Bleeding resolved. Note plans to transfer out of ICU, advance diet - agree. Colonoscopy/tattoo prior to elective resection down the road. UPDATE - RN called, hematochezia/bleeding recurred 500-600cc, has already notified surgery who will be by to see. Back to NPO, recheck Hgb. PAGE SCHOFIELD Sep 13, 2016 09:48
--- NOTE | 2016-09-13 11:27 | PDOC ---
SURGICAL PROGRESS NOTE Subjective Pt sitting up in chair, no complaints. Vital Signs Vital Signs Date Time Temp Pulse Resp B/P (MAP) Pulse Ox O2 Delivery O2 Flow Rate FiO2 09/13/16 09:00 74 25 165/76 (105) 100 Room Air 09/13/16 07:00 99.4 99.4 09/12/16 21:29 1.0 I&O Intake and Output 09/13/16 06:59 Intake Total 2976 ml Output Total 1995 ml Balance 981 ml IV Total 1550 ml Blood Product 600 ml Blood Product IV Normal Saline Flush 826 ml Output Urine Total 1995 ml # Voids 5 General: Alert, Oriented X3, Cooperative, No acute distress Abdomen: Soft, No tenderness Labs Laboratory Tests Test 09/11/16 15:19 09/12/16 06:35 09/12/16 11:57 09/12/16 17:43 White Blood Count 11.4 x10^3/uL (4.0-11.0) 10.6 x10^3/uL (4.0-11.0) Red Blood Count 2.75 x10^6/uL (3.50-5.40) 2.41 x10^6/uL (3.50-5.40) Hemoglobin 8.2 g/dL (12.0-15.5) 7.3 g/dL (12.0-15.5) Hematocrit 23.8 % (36.0-47.0) 21.4 % (36.0-47.0) Mean Corpuscular Volume 87 fL (79-100) 89 fL (79-100) Mean Corpuscular Hemoglobin 30 pg (25-35) 30 pg (25-35) Mean Corpuscular Hemoglobin Concent 35 g/dL (31-37) 34 g/dL (31-37) Red Cell Distribution Width 14.8 % (11.5-14.5) 15.4 % (11.5-14.5) Platelet Count 121 x10^3/uL (140-400) 115 x10^3/uL (140-400) Sodium Level 146 mmol/L (136-145) Potassium Level 4.1 mmol/L (3.5-5.1) Chloride Level 112 mmol/L (98-107) Carbon Dioxide Level 27 mmol/L (21-32) Anion Gap 7 (6-14) Blood Urea Nitrogen 43 mg/dL (7-20) Creatinine 1.8 mg/dL (0.6-1.0) Estimated GFR (Cockcroft-Gault) 32.6 Glucose Level 145 mg/dL (70-99) Calcium Level 8.3 mg/dL (8.5-10.1) Glucose (Fingerstick) 240 mg/dL (70-99) 158 mg/dL (70-99) Test 09/12/16 18:20 09/12/16 21:28 09/13/16 05:45 09/13/16 08:00 White Blood Count 12.0 x10^3/uL (4.0-11.0) 11.3 x10^3/uL (4.0-11.0) Red Blood Count 3.19 x10^6/uL (3.50-5.40) 3.07 x10^6/uL (3.50-5.40) Hemoglobin 9.4 g/dL (12.0-15.5) 8.9 g/dL (12.0-15.5) Hematocrit 27.7 % (36.0-47.0) 26.9 % (36.0-47.0) Mean Corpuscular Volume 87 fL (79-100) 88 fL (79-100) Mean Corpuscular Hemoglobin 29 pg (25-35) 29 pg (25-35) Mean Corpuscular Hemoglobin Concent 34 g/dL (31-37) 33 g/dL (31-37) Red Cell Distribution Width 16.1 % (11.5-14.5) 16.2 % (11.5-14.5) Platelet Count 114 x10^3/uL (140-400) 105 x10^3/uL (140-400) Glucose (Fingerstick) 111 mg/dL (70-99) 159 mg/dL (70-99) Sodium Level 144 mmol/L (136-145) Potassium Level 3.9 mmol/L (3.5-5.1) Chloride Level 112 mmol/L (98-107) Carbon Dioxide Level 24 mmol/L (21-32) Anion Gap 8 (6-14) Blood Urea Nitrogen 36 mg/dL (7-20) Creatinine 1.3 mg/dL (0.6-1.0) Estimated GFR (Cockcroft-Gault) 47.5 Glucose Level 151 mg/dL (70-99) Calcium Level 8.2 mg/dL (8.5-10.1) Test 09/13/16 11:19 Glucose (Fingerstick) 176 mg/dL (70-99) Laboratory Tests Test 09/12/16 11:57 09/12/16 17:43 09/12/16 18:20 09/12/16 21:28 Glucose (Fingerstick) 240 mg/dL (70-99) 158 mg/dL (70-99) 111 mg/dL (70-99) White Blood Count 12.0 x10^3/uL (4.0-11.0) Red Blood Count 3.19 x10^6/uL (3.50-5.40) Hemoglobin 9.4 g/dL (12.0-15.5) Hematocrit 27.7 % (36.0-47.0) Mean Corpuscular Volume 87 fL (79-100) Mean Corpuscular Hemoglobin 29 pg (25-35) Mean Corpuscular Hemoglobin Concent 34 g/dL (31-37) Red Cell Distribution Width 16.1 % (11.5-14.5) Platelet Count 114 x10^3/uL (140-400) Test 09/13/16 05:45 09/13/16 08:00 09/13/16 11:19 White Blood Count 11.3 x10^3/uL (4.0-11.0) Red Blood Count 3.07 x10^6/uL (3.50-5.40) Hemoglobin 8.9 g/dL (12.0-15.5) Hematocrit 26.9 % (36.0-47.0) Mean Corpuscular Volume 88 fL (79-100) Mean Corpuscular Hemoglobin 29 pg (25-35) Mean Corpuscular Hemoglobin Concent 33 g/dL (31-37) Red Cell Distribution Width 16.2 % (11.5-14.5) Platelet Count 105 x10^3/uL (140-400) Sodium Level 144 mmol/L (136-145) Potassium Level 3.9 mmol/L (3.5-5.1) Chloride Level 112 mmol/L (98-107) Carbon Dioxide Level 24 mmol/L (21-32) Anion Gap 8 (6-14) Blood Urea Nitrogen 36 mg/dL (7-20) Creatinine 1.3 mg/dL (0.6-1.0) Estimated GFR (Cockcroft-Gault) 47.5 Glucose Level 151 mg/dL (70-99) Calcium Level 8.2 mg/dL (8.5-10.1) Glucose (Fingerstick) 159 mg/dL (70-99) 176 mg/dL (70-99) Problem List Problems Medical Problems: (1) Lower GI bleed Status: Acute Assessment/Plan cont supportive care, appears stable consider elective resection Problems: ALBERT PATRICIA MD Sep 13, 2016 11:27
[2016-09-13 11:35] LABS: HEMATOCRIT 26.9 % (36.0-47.0); RED BLOOD COUNT 3.05 x10^6/uL (3.50-5.40); RED CELL DISTRIBUTION WIDTH 16.5 % (11.5-14.5); WHITE BLOOD COUNT 11.8 x10^3/uL (4.0-11.0)
[2016-09-13] MEDS: fentaNYL PF VIAL 100 MCG/2 ML VIAL IV PRN ×3 (13:55→21:55)
[2016-09-13] MEDS ORDERED: PEG 3350/NA SULF,BICARB,CL/KCL 4,000 ML SOLUTION. PO ONE (15:00)
[2016-09-13 18:36] LABS: HEMATOCRIT 21.7 % (36.0-47.0); HEMOGLOBIN 7.2 g/dL (12.0-15.5); RED BLOOD COUNT 2.44 x10^6/uL (3.50-5.40); RED CELL DISTRIBUTION WIDTH 16.2 % (11.5-14.5); WHITE BLOOD COUNT 12.1 x10^3/uL (4.0-11.0)
[2016-09-14] VITALS (16 sets, daily range): BP systolic 138–183; BP diastolic 54–98
[2016-09-14 05:09] LABS: HEMOGLOBIN 8.9 g/dL (12.0-15.5); RED BLOOD COUNT 2.91 x10^6/uL (3.50-5.40); WHITE BLOOD COUNT 9.9 x10^3/uL (4.0-11.0)
[2016-09-14 06:10] LABS: CALCIUM 7.6 mg/dL (8.5-10.1); GFR 64.2; POTASSIUM 3.7 mmol/L (3.5-5.1)
[2016-09-14] MEDS ORDERED: LIDOCAINE 1% 1 ML SYRINGE. ID PRN ×2 (07:00→10:00)
[2016-09-14] MEDS ORDERED: fentaNYL PF VIAL 100 MCG/2 ML VIAL IV PRN ×4 (07:00→10:00)
[2016-09-14] MEDS ORDERED: ONDANSETRON PF 4 MG/2 ML VIAL. IV PRN (07:00)
[2016-09-14] MEDS ORDERED: PROCHLORPERAZINE 10 MG/2 ML VIAL. IV PRN (07:00)
[2016-09-14] MEDS ORDERED: IV RINGERS,LACTATED 1000ML 1,000 ML IV SCH (07:00)
[2016-09-14] MEDS: FERROUS SULFATE 325 MG TABLET. PO SCH (08:00)
[2016-09-14] MEDS: INSULIN ASPART 300 UNITS/3 ML INSULN.PEN SQ SCH ×3 (08:00→17:00)
--- NOTE | 2016-09-14 08:03 | PDOC ---
SURGICAL PROGRESS NOTE Subjective Pt reports feeling better today Vital Signs Vital Signs Date Time Temp Pulse Resp B/P (MAP) Pulse Ox O2 Delivery O2 Flow Rate FiO2 09/14/16 07:00 79 16 157/72 (100) 99 Room Air 09/14/16 04:00 98.5 98.5 09/13/16 16:32 1.0 I&O Intake and Output 09/14/16 07:00 Intake Total 5598 ml Output Total 2425 ml Balance 3173 ml Intake Oral 4160 ml IV Total 671 ml Blood Product 687 ml Blood Product IV Normal Saline Flush 80 ml Output Urine Total 1225 ml Stool Total 1200 ml # Voids 3 # Bowel Movements 16 General: Alert, Oriented X3, Cooperative, No acute distress Abdomen: Soft, No tenderness Labs Laboratory Tests Test 09/12/16 11:57 09/12/16 17:43 09/12/16 18:20 09/12/16 21:28 Glucose (Fingerstick) 240 mg/dL (70-99) 158 mg/dL (70-99) 111 mg/dL (70-99) White Blood Count 12.0 x10^3/uL (4.0-11.0) Red Blood Count 3.19 x10^6/uL (3.50-5.40) Hemoglobin 9.4 g/dL (12.0-15.5) Hematocrit 27.7 % (36.0-47.0) Mean Corpuscular Volume 87 fL (79-100) Mean Corpuscular Hemoglobin 29 pg (25-35) Mean Corpuscular Hemoglobin Concent 34 g/dL (31-37) Red Cell Distribution Width 16.1 % (11.5-14.5) Platelet Count 114 x10^3/uL (140-400) Test 09/13/16 05:45 09/13/16 08:00 09/13/16 11:19 09/13/16 11:30 White Blood Count 11.3 x10^3/uL (4.0-11.0) 11.8 x10^3/uL (4.0-11.0) Red Blood Count 3.07 x10^6/uL (3.50-5.40) 3.05 x10^6/uL (3.50-5.40) Hemoglobin 8.9 g/dL (12.0-15.5) 9.0 g/dL (12.0-15.5) Hematocrit 26.9 % (36.0-47.0) 26.9 % (36.0-47.0) Mean Corpuscular Volume 88 fL (79-100) 88 fL (79-100) Mean Corpuscular Hemoglobin 29 pg (25-35) 29 pg (25-35) Mean Corpuscular Hemoglobin Concent 33 g/dL (31-37) 33 g/dL (31-37) Red Cell Distribution Width 16.2 % (11.5-14.5) 16.5 % (11.5-14.5) Platelet Count 105 x10^3/uL (140-400) 127 x10^3/uL (140-400) Sodium Level 144 mmol/L (136-145) Potassium Level 3.9 mmol/L (3.5-5.1) Chloride Level 112 mmol/L (98-107) Carbon Dioxide Level 24 mmol/L (21-32) Anion Gap 8 (6-14) Blood Urea Nitrogen 36 mg/dL (7-20) Creatinine 1.3 mg/dL (0.6-1.0) Estimated GFR (Cockcroft-Gault) 47.5 Glucose Level 151 mg/dL (70-99) Calcium Level 8.2 mg/dL (8.5-10.1) Glucose (Fingerstick) 159 mg/dL (70-99) 176 mg/dL (70-99) Test 09/13/16 17:48 09/13/16 18:15 09/14/16 04:30 09/14/16 05:25 Glucose (Fingerstick) 154 mg/dL (70-99) White Blood Count 12.1 x10^3/uL (4.0-11.0) 9.9 x10^3/uL (4.0-11.0) Red Blood Count 2.44 x10^6/uL (3.50-5.40) 2.91 x10^6/uL (3.50-5.40) Hemoglobin 7.2 g/dL (12.0-15.5) 8.9 g/dL (12.0-15.5) Hematocrit 21.7 % (36.0-47.0) 26.0 % (36.0-47.0) Mean Corpuscular Volume 89 fL (79-100) 89 fL (79-100) Mean Corpuscular Hemoglobin 30 pg (25-35) 31 pg (25-35) Mean Corpuscular Hemoglobin Concent 33 g/dL (31-37) 34 g/dL (31-37) Red Cell Distribution Width 16.2 % (11.5-14.5) 15.0 % (11.5-14.5) Platelet Count 126 x10^3/uL (140-400) 101 x10^3/uL (140-400) Sodium Level 145 mmol/L (136-145) Potassium Level 3.7 mmol/L (3.5-5.1) Chloride Level 111 mmol/L (98-107) Carbon Dioxide Level 26 mmol/L (21-32) Anion Gap 8 (6-14) Blood Urea Nitrogen 22 mg/dL (7-20) Creatinine 1.0 mg/dL (0.6-1.0) Estimated GFR (Cockcroft-Gault) 64.2 Glucose Level 139 mg/dL (70-99) Calcium Level 7.6 mg/dL (8.5-10.1) Laboratory Tests Test 09/13/16 11:19 09/13/16 11:30 09/13/16 17:48 09/13/16 18:15 Glucose (Fingerstick) 176 mg/dL (70-99) 154 mg/dL (70-99) White Blood Count 11.8 x10^3/uL (4.0-11.0) 12.1 x10^3/uL (4.0-11.0) Red Blood Count 3.05 x10^6/uL (3.50-5.40) 2.44 x10^6/uL (3.50-5.40) Hemoglobin 9.0 g/dL (12.0-15.5) 7.2 g/dL (12.0-15.5) Hematocrit 26.9 % (36.0-47.0) 21.7 % (36.0-47.0) Mean Corpuscular Volume 88 fL (79-100) 89 fL (79-100) Mean Corpuscular Hemoglobin 29 pg (25-35) 30 pg (25-35) Mean Corpuscular Hemoglobin Concent 33 g/dL (31-37) 33 g/dL (31-37) Red Cell Distribution Width 16.5 % (11.5-14.5) 16.2 % (11.5-14.5) Platelet Count 127 x10^3/uL (140-400) 126 x10^3/uL (140-400) Test 09/14/16 04:30 09/14/16 05:25 White Blood Count 9.9 x10^3/uL (4.0-11.0) Red Blood Count 2.91 x10^6/uL (3.50-5.40) Hemoglobin 8.9 g/dL (12.0-15.5) Hematocrit 26.0 % (36.0-47.0) Mean Corpuscular Volume 89 fL (79-100) Mean Corpuscular Hemoglobin 31 pg (25-35) Mean Corpuscular Hemoglobin Concent 34 g/dL (31-37) Red Cell Distribution Width 15.0 % (11.5-14.5) Platelet Count 101 x10^3/uL (140-400) Sodium Level 145 mmol/L (136-145) Potassium Level 3.7 mmol/L (3.5-5.1) Chloride Level 111 mmol/L (98-107) Carbon Dioxide Level 26 mmol/L (21-32) Anion Gap 8 (6-14) Blood Urea Nitrogen 22 mg/dL (7-20) Creatinine 1.0 mg/dL (0.6-1.0) Estimated GFR (Cockcroft-Gault) 64.2 Glucose Level 139 mg/dL (70-99) Calcium Level 7.6 mg/dL (8.5-10.1) Problem List Problems Medical Problems: (1) Lower GI bleed Status: Acute Assessment/Plan suspected diverticular bleed agree with colonoscopy today, would request tattooing given the recurrent nature of bleeding, would schedule left colon resection, R/b/A d/w pt and pt's Problems: ALBERT PATRICIA MD Sep 14, 2016 08:03
--- NOTE | 2016-09-14 08:29 | PDOC ---
PROGRESS NOTES Subjective Subjective Patient without complaint, no abdominal pain presently, no bloody stools since one yesterday. Objective Objective Vital Signs Date Time Temp Pulse Resp B/P (MAP) Pulse Ox O2 Delivery O2 Flow Rate FiO2 09/14/16 08:00 Room Air 09/14/16 07:00 79 16 157/72 (100) 99 09/14/16 04:00 98.5 98.5 09/13/16 16:32 1.0 Intake and Output 09/14/16 07:00 Intake Total 5598 ml Output Total 2425 ml Balance 3173 ml Intake Oral 4160 ml IV Total 671 ml Blood Product 687 ml Blood Product IV Normal Saline Flush 80 ml Output Urine Total 1225 ml Stool Total 1200 ml # Voids 3 # Bowel Movements 16 Physical Exam Abdomen: Normal bowel sounds, Soft, No tenderness Heart: Regular rate Extremities: No edema General: Alert, Oriented X3, No acute distress Lungs: Clear to auscultation Assessment Assessment Problems Medical Problems: (1) Lower GI bleed Status: Acute Plan Plan of Care 1. Lower GI bleed with anemia - patient had another significant bleed yesterday AM. Hgb decreased to 7.2 last evening, transfused and now 8.9. To have colonoscopy today with anticipated partial colectomy on Saturday per Dr Moya. Continue to monitor closely. 2. HTN - controlled with home meds. 3. DM2 - stable, continue SS insulin when needed. 4. prerenal azotemia - much better, continue IVF when NPO and clears when allowed. Comment Review of Relevant I have reviewed the following items veronique (where applicable) has been applied. Labs Laboratory Tests Test 09/12/16 11:57 09/12/16 17:43 09/12/16 18:20 09/12/16 21:28 Glucose (Fingerstick) 240 mg/dL (70-99) 158 mg/dL (70-99) 111 mg/dL (70-99) White Blood Count 12.0 x10^3/uL (4.0-11.0) Red Blood Count 3.19 x10^6/uL (3.50-5.40) Hemoglobin 9.4 g/dL (12.0-15.5) Hematocrit 27.7 % (36.0-47.0) Mean Corpuscular Volume 87 fL (79-100) Mean Corpuscular Hemoglobin 29 pg (25-35) Mean Corpuscular Hemoglobin Concent 34 g/dL (31-37) Red Cell Distribution Width 16.1 % (11.5-14.5) Platelet Count 114 x10^3/uL (140-400) Test 09/13/16 05:45 09/13/16 08:00 09/13/16 11:19 09/13/16 11:30 White Blood Count 11.3 x10^3/uL (4.0-11.0) 11.8 x10^3/uL (4.0-11.0) Red Blood Count 3.07 x10^6/uL (3.50-5.40) 3.05 x10^6/uL (3.50-5.40) Hemoglobin 8.9 g/dL (12.0-15.5) 9.0 g/dL (12.0-15.5) Hematocrit 26.9 % (36.0-47.0) 26.9 % (36.0-47.0) Mean Corpuscular Volume 88 fL (79-100) 88 fL (79-100) Mean Corpuscular Hemoglobin 29 pg (25-35) 29 pg (25-35) Mean Corpuscular Hemoglobin Concent 33 g/dL (31-37) 33 g/dL (31-37) Red Cell Distribution Width 16.2 % (11.5-14.5) 16.5 % (11.5-14.5) Platelet Count 105 x10^3/uL (140-400) 127 x10^3/uL (140-400) Sodium Level 144 mmol/L (136-145) Potassium Level 3.9 mmol/L (3.5-5.1) Chloride Level 112 mmol/L (98-107) Carbon Dioxide Level 24 mmol/L (21-32) Anion Gap 8 (6-14) Blood Urea Nitrogen 36 mg/dL (7-20) Creatinine 1.3 mg/dL (0.6-1.0) Estimated GFR (Cockcroft-Gault) 47.5 Glucose Level 151 mg/dL (70-99) Calcium Level 8.2 mg/dL (8.5-10.1) Glucose (Fingerstick) 159 mg/dL (70-99) 176 mg/dL (70-99) Test 09/13/16 17:48 09/13/16 18:15 09/14/16 04:30 09/14/16 05:25 Glucose (Fingerstick) 154 mg/dL (70-99) White Blood Count 12.1 x10^3/uL (4.0-11.0) 9.9 x10^3/uL (4.0-11.0) Red Blood Count 2.44 x10^6/uL (3.50-5.40) 2.91 x10^6/uL (3.50-5.40) Hemoglobin 7.2 g/dL (12.0-15.5) 8.9 g/dL (12.0-15.5) Hematocrit 21.7 % (36.0-47.0) 26.0 % (36.0-47.0) Mean Corpuscular Volume 89 fL (79-100) 89 fL (79-100) Mean Corpuscular Hemoglobin 30 pg (25-35) 31 pg (25-35) Mean Corpuscular Hemoglobin Concent 33 g/dL (31-37) 34 g/dL (31-37) Red Cell Distribution Width 16.2 % (11.5-14.5) 15.0 % (11.5-14.5) Platelet Count 126 x10^3/uL (140-400) 101 x10^3/uL (140-400) Sodium Level 145 mmol/L (136-145) Potassium Level 3.7 mmol/L (3.5-5.1) Chloride Level 111 mmol/L (98-107) Carbon Dioxide Level 26 mmol/L (21-32) Anion Gap 8 (6-14) Blood Urea Nitrogen 22 mg/dL (7-20) Creatinine 1.0 mg/dL (0.6-1.0) Estimated GFR (Cockcroft-Gault) 64.2 Glucose Level 139 mg/dL (70-99) Calcium Level 7.6 mg/dL (8.5-10.1) Laboratory Tests Test 09/13/16 11:19 09/13/16 11:30 09/13/16 17:48 09/13/16 18:15 Glucose (Fingerstick) 176 mg/dL (70-99) 154 mg/dL (70-99) White Blood Count 11.8 x10^3/uL (4.0-11.0) 12.1 x10^3/uL (4.0-11.0) Red Blood Count 3.05 x10^6/uL (3.50-5.40) 2.44 x10^6/uL (3.50-5.40) Hemoglobin 9.0 g/dL (12.0-15.5) 7.2 g/dL (12.0-15.5) Hematocrit 26.9 % (36.0-47.0) 21.7 % (36.0-47.0) Mean Corpuscular Volume 88 fL (79-100) 89 fL (79-100) Mean Corpuscular Hemoglobin 29 pg (25-35) 30 pg (25-35) Mean Corpuscular Hemoglobin Concent 33 g/dL (31-37) 33 g/dL (31-37) Red Cell Distribution Width 16.5 % (11.5-14.5) 16.2 % (11.5-14.5) Platelet Count 127 x10^3/uL (140-400) 126 x10^3/uL (140-400) Test 09/14/16 04:30 09/14/16 05:25 White Blood Count 9.9 x10^3/uL (4.0-11.0) Red Blood Count 2.91 x10^6/uL (3.50-5.40) Hemoglobin 8.9 g/dL (12.0-15.5) Hematocrit 26.0 % (36.0-47.0) Mean Corpuscular Volume 89 fL (79-100) Mean Corpuscular Hemoglobin 31 pg (25-35) Mean Corpuscular Hemoglobin Concent 34 g/dL (31-37) Red Cell Distribution Width 15.0 % (11.5-14.5) Platelet Count 101 x10^3/uL (140-400) Sodium Level 145 mmol/L (136-145) Potassium Level 3.7 mmol/L (3.5-5.1) Chloride Level 111 mmol/L (98-107) Carbon Dioxide Level 26 mmol/L (21-32) Anion Gap 8 (6-14) Blood Urea Nitrogen 22 mg/dL (7-20) Creatinine 1.0 mg/dL (0.6-1.0) Estimated GFR (Cockcroft-Gault) 64.2 Glucose Level 139 mg/dL (70-99) Calcium Level 7.6 mg/dL (8.5-10.1) Microbiology 09/10/16 Urine Culture - Final, Complete 09/10/16 Urine Culture Result 1 (INGE) - Final, Complete Medications Current Medications Fentanyl Citrate (Fentanyl 2ml Vial) 25 mcg PRN Q15MIN PRN IV PAIN GREATER THAN 3/10 Last administered on 09/10/16 11:15; Start 09/10/16 at 10:00; Stop at 09:59; Status DC Ondansetron HCl (Zofran) 4 mg PRN Q8HRS PRN IV NAUSEA/VOMITING; Start 09/10/16 at 11:30; Stop 09/11/16 at 11:29; Status DC Fentanyl Citrate (Fentanyl 2ml Vial) 50 mcg PRN Q1HR PRN IV PAIN Last administered on 09/11/16 07:40; Start 09/10/16 at 11:30; Stop 09/11/16 at 11:29 ; Status DC Sodium Chloride 1,000 ml @ 125 mls/hr Q8H IV Last administered on 09/10/16 14 :30; Start 09/10/16 at 11:16; Stop 09/11/16 at 11:15; Status DC Sodium Chloride 500 ml @ 500 mls/hr 1X ONCE IV Last administered on 11:35; Start 09/10/16 at 11:30; Stop 09/10/16 at 12:29; Status DC Iohexol (Omnipaque 350 Mg/ml) 90 ml 1X ONCE IV Last administered on 09/10/16 14:00; Start 09/10/16 at 13:30; Stop 09/10/16 at 13:35; Status DC Famotidine (Pepcid) 20 mg DAILY IVP Last administered on 09/13/16 07:58; Start 09/10/16 at 14:00 Diphenhydramine HCl (Benadryl) 25 mg PRN Q6HRS PRN IVP ITCHING Last administered on 09/10/16 17:36; Start 09/10/16 at 17:30 Iohexol (Omnipaque 300 Mg/ml) 100 ml STK-MED ONCE .ROUTE ; Start 09/11/16 at 08: 11; Stop 09/11/16 at 08:12; Status DC Lidocaine/Sodium Bicarbonate (Buffered Lidocaine 1%) 20 ml STK-MED ONCE IJ ; Start 09/11/16 at 08:12; Stop 09/11/16 at 08:13; Status DC Heparin Sodium/ Sodium Chloride 1,500 ml @ As Directed STK-MED ONCE .ROUTE ; Start 09/11/16 at 08:12; Stop 09/11/16 at 08:13; Status DC Midazolam HCl (Versed) 2 mg STK-MED ONCE .ROUTE ; Start 09/11/16 at 08:29; Stop 09/11/16 at 08:30; Status DC Ondansetron HCl (Zofran) 4 mg PRN Q6HRS PRN IV NAUSEA/VOMITING; Start 09/11/16 at 09:00; Stop 09/12/16 at 08:59; Status DC Fentanyl Citrate (Fentanyl 2ml Vial) 25 mcg PRN Q5MIN PRN IV MILD PAIN; Start 09/11/16 at 09:00; Stop 09/12/16 at 08:59; Status DC Fentanyl Citrate (Fentanyl 2ml Vial) 50 mcg PRN Q5MIN PRN IV MODERATE PAIN; Start 09/11/16 at 09:00; Stop 09/12/16 at 08:59; Status DC Ringer's Solution 1,000 ml @ 30 mls/hr Q24H IV ; Start 09/11/16 at 08:46; Stop 09/11/16 at 20:45; Status DC Lidocaine HCl 2 ml PRN 1X PRN ID PRIOR TO IV START; Start 09/11/16 at 09:00; Stop 09/12/16 at 08:59; Status DC Prochlorperazine Edisylate (Compazine) 5 mg PACU PRN PRN IV NAUSEA, MRX1; Start 09/11/16 at 09:00; Stop 09/12/16 at 08:59; Status DC Heparin Sodium/ Sodium Chloride 1,000 unit 1X ONCE IART Last administered on t 09:26; Start 09/11/16 at 09:15; Stop 09/11/16 at 09:16; Status DC Lidocaine/Sodium Bicarbonate (Buffered Lidocaine 1%) 20 ml 1X ONCE IJ Last administered on 09/11/16 09:28; Start 09/11/16 at 09:15; Stop 09/11/16 at 09:16 ; Status DC Midazolam HCl (Versed) 2 mg 1X ONCE IV Last administered on 09/11/16 09:28; Start 09/11/16 at 09:15; Stop 09/11/16 at 09:16; Status DC Fentanyl Citrate (Fentanyl 2ml Vial) 100 mcg 1X ONCE IV Last administered on 09:28; Start 09/11/16 at 09:15; Stop 09/11/16 at 09:16; Status DC Iohexol (Omnipaque 300 Mg/ml) 100 ml 1X ONCE IART Last administered on 09:28; Start 09/11/16 at 09:15; Stop 09/11/16 at 09:16; Status DC Diltiazem HCl (Cardizem 24hr Cd) 240 mg DAILY PO Last administered on 07:56; Start 09/11/16 at 17:00 Ferrous Sulfate (Feosol) 325 mg DAILYWBKFT PO Last administered on 09/13/16 07 :56; Start 09/12/16 at 08:00 Acetaminophen/ Hydrocodone Bitart (Lortab 5/325) 1 tab PRN Q6HRS PRN PO PAIN Last administered on 09/12/16 19:28; Start 09/11/16 at 16:30 Lisinopril (Prinivil) 40 mg DAILY PO Last administered on 09/13/16 07:56; Start 09/11/16 at 17:00 Metoprolol Tartrate (Lopressor) 75 mg BID PO Last administered on 09/13/16 20: 52; Start 09/11/16 at 21:00 Triamterene/HCTZ (Maxzide 75/50mg) 1 tab DAILY PO Last administered on 07:57; Start 09/11/16 at 17:00 Insulin Aspart (NovoLOG) 0-5 UNITS TIDWMEALS SQ Last administered on 09/13/16 08:02; Start 09/12/16 at 12:00 Dextrose (Dextrose 50%-Water Syringe) 12.5 gm PRN Q15MIN PRN IV SEE COMMENTS; Start 09/12/16 at 08:45 Sodium Chloride 1,000 ml @ 100 mls/hr Q10H IV Last administered on 09/13/16 07:58; Start 09/12/16 at 08:45; Stop 09/13/16 at 13:44; Status DC Alteplase, Recombinant (Cathflo) 2 mg 1X ONCE INT CAT Last administered on 11:50; Start 09/12/16 at 11:45; Stop 09/12/16 at 11:46; Status DC Sodium Cl/Sod Bicarb/Potass Cl/ PEG (Golytely) 4,000 ml 1X ONCE PO Last administered on 09/13/16 16:33; Start 09/13/16 at 15:00; Stop 09/13/16 at 15:01 ; Status DC Sodium Chloride 1,000 ml @ 100 mls/hr Q10H IV Last administered on 09/13/16 17:50; Start 09/13/16 at 14:00 Fentanyl Citrate (Fentanyl 2ml Vial) 50 mcg PRN Q4HRS PRN IV PAIN Last administered on 09/13/16 16:32; Start 09/13/16 at 13:45 Fentanyl Citrate (Fentanyl 2ml Vial) 25 mcg PRN Q4HRS PRN IV PAIN Last administered on 09/13/16 21:55; Start 09/13/16 at 13:45 Ondansetron HCl (Zofran) 4 mg PRN Q6HRS PRN IV NAUSEA/VOMITING; Start 09/14/16 at 07:00; Stop 09/15/16 at 06:59 Fentanyl Citrate (Fentanyl 2ml Vial) 25 mcg PRN Q5MIN PRN IV MILD PAIN; Start 09/14/16 at 07:00; Stop 09/15/16 at 06:59 Fentanyl Citrate (Fentanyl 2ml Vial) 50 mcg PRN Q5MIN PRN IV MODERATE PAIN; Start 09/14/16 at 07:00; Stop 09/15/16 at 06:59 Ringer's Solution 1,000 ml @ 30 mls/hr Q24H IV ; Start 09/14/16 at 07:00; Stop 09/14/16 at 18:59 Lidocaine HCl 2 ml PRN 1X PRN ID PRIOR TO IV START; Start 09/14/16 at 07:00; Stop 09/15/16 at 06:59 Prochlorperazine Edisylate (Compazine) 5 mg PACU PRN PRN IV NAUSEA, MRX1; Start 09/14/16 at 07:00; Stop 09/15/16 at 06:59 Active Scripts Active Metoprolol Tartrate 50 Mg Tablet 75 Mg PO BID 30 Days Feosol (Ferrous Sulfate) 325 Mg Tablet 325 Mg PO DAILYWBKFT 30 Days Reported Glimepiride 2 Mg Tablet 1 Tab PO DAILY08 Glimepiride 1 Mg Tablet 1 Tab PO DAILYBFRSUP Pravastatin Sodium 80 Mg Tablet 1 Tab PO QHS Metformin Hcl 500 Mg Tablet 1 Tab PO BID Lisinopril 40 Mg Tablet 1 Tab PO DAILY Triamterene-Hctz 75-50 Mg Tab (Triamterene/Hydrochlorothiazid) 1 Each Tablet 1 Tab PO DAILY Diltiazem 24HR Cd (Diltiazem Hcl) 240 Mg Cap.er.24h 240 Mg PO DAILY [place] 5-325 Tablet (Acetaminophen/Hydrocodone Bitart) 1 Each Tablet 1 Tab PO PRN Q6HRS PRN Vitals/I & O Vital Sign - Last 24 Hours 09/13/16 09/13/16 09/13/16 09/13/16 09:00 10:00 11:00 12:00 Pulse 74 70 69 Resp 25 18 22 B/P (MAP) 165/76 (105) 171/80 (110) 165/80 (108) Pulse Ox 100 99 96 O2 Delivery Room Air Room Air Room Air Room Air 09/13/16 09/13/16 09/13/16 09/13/16 12:00 13:00 13:55 14:00 Temp 99.9 99.1 99.9 99.1 Pulse 79 84 74 Resp 17 18 14 20 B/P (MAP) 166/74 (104) 133/69 (90) 135/68 (90) Pulse Ox 99 100 98 O2 Delivery Room Air Room Air Room Air Room Air 09/13/16 09/13/16 09/13/16 09/13/16 15:00 16:00 16:00 16:32 Pulse 72 74 Resp 16 19 B/P (MAP) 140/68 (92) 139/67 (91) Pulse Ox 99 99 100 O2 Delivery Room Air Room Air Room Air Room Air O2 Flow Rate 1.0 7/13/09/13/16 09/13/16 09/13/16 17:00 18:00 19:00 20:00 Temp 97.7 97.7 Pulse 82 81 81 83 Resp 21 30 19 27 B/P (MAP) 163/88 (113) 131/59 (83) 155/65 (95) 139/52 (81) Pulse Ox 100 100 100 100 O2 Delivery Room Air Room Air Room Air Room Air 09/13/16 09/13/16 09/13/16 09/13/16 20:00 20:52 21:00 21:12 Temp 97.7 97.7 Pulse 78 79 89 Resp 16 25 B/P (MAP) 139/51 155/73 (100) 155/76 Pulse Ox 100 O2 Delivery Room Air Room Air 09/13/16 09/13/16 09/13/16 09/13/16 21:26 22:00 22:30 22:48 Temp 98.2 98.6 98.2 98.6 Pulse 72 60 67 Resp 27 B/P (MAP) 133/76 141/60 (87) 141/60 Pulse Ox 99 99 O2 Delivery Room Air Room Air 09/13/16 09/13/16 09/14/16 09/14/16 23:00 23:00 00:00 00:00 Temp 98.5 98.5 98.5 98.5 Pulse 63 61 65 Resp 17 20 B/P (MAP) 143/63 143/66 (91) 163/78 (106) Pulse Ox 99 100 O2 Delivery Room Air Room Air Room Air 09/14/16 09/14/16 09/14/16 09/14/16 00:16 01:00 02:00 03:00 Temp 97.6 97.6 Pulse 69 77 65 67 Resp 16 16 B/P (MAP) 179/88 153/72 (99) 169/72 (104) 148/66 (93) Pulse Ox 99 100 99 O2 Delivery Room Air Room Air Room Air 09/14/16 09/14/16 09/14/16 09/14/16 04:00 04:00 05:00 06:00 Temp 98.5 98.5 Pulse 69 68 71 Resp 15 16 20 B/P (MAP) 157/79 (105) 156/79 (104) 153/59 (90) Pulse Ox 99 99 97 O2 Delivery Room Air Room Air Room Air Room Air 09/14/16 09/14/16 07:00 08:00 Pulse 79 Resp 16 B/P (MAP) 157/72 (100) Pulse Ox 99 O2 Delivery Room Air Room Air Intake and Output 09/13/16 09/13/16 09/14/16 15:00 23:00 07:00 Intake Total 360 ml 30 ml 5208 ml Output Total 1200 ml 1225 ml Balance -840 ml 30 ml 3983 ml MONI STACK MD Sep 14, 2016 08:29
[2016-09-14] MEDS: FAMOTIDINE 20 MG/2 ML VIAL IVP SCH (08:49)
[2016-09-14] MEDS: IV 1/2 NORMAL SALINE 1,000 ML IV SCH ×3 (08:50→20:36)
[2016-09-14] MEDS ORDERED: MIDAZOLAM HCL/PF 2 MG/2 ML VIAL. IV PRN (10:00)
[2016-09-14] MEDS ORDERED: LIDOCAINE 2% PF Vial for OR 5 ML VIAL. ONE (10:38)
[2016-09-14] MEDS ORDERED: PROPOFOL 20 ML IV ONE (10:38)
--- NOTE | 2016-09-14 11:10 | PDOC4 ---
Operative Note Operative Note Colonoscopy with polypectomy Meds propofol per anesthesia Pre-op dx acute blood loss anemia/hx diverticulosis Post-op dx internal hemorrhoids sigmoid polyp s/p polypectomy mcintyre diverticulosis with majority in left colon-small number of diverticulosis in ascending colon Plan left eri-colectomy with recurrent bleeding per surgery JUAN C RUEDA MD Sep 14, 2016 11:10
[2016-09-14] MEDS: METOPROLOL TART IMMED RELEASE 50 MG TABLET. PO SCH ×2 (11:51→20:30)
[2016-09-14] MEDS: LISINOPRIL 40 MG TABLET. PO SCH (11:51)
[2016-09-14] MEDS: TRIAMTERENE/HCTZ 75/50MG TABLET. PO SCH (11:56)
[2016-09-14] MEDS: fentaNYL PF VIAL 100 MCG/2 ML VIAL IV PRN (13:29)
[2016-09-14] MEDS: HYDROcodone/APAP 5/325MG 1 TAB TABLET PO PRN (20:29)
[2016-09-15] VITALS (7 sets, daily range): BP systolic 113–172; BP diastolic 44–74
[2016-09-15 04:56] LABS: HEMATOCRIT 25.2 % (36.0-47.0); HEMOGLOBIN 8.6 g/dL (12.0-15.5); RED BLOOD COUNT 2.8 x10^6/uL (3.50-5.40); RED CELL DISTRIBUTION WIDTH 15.3 % (11.5-14.5); WHITE BLOOD COUNT 8.5 x10^3/uL (4.0-11.0)
[2016-09-15 05:17] LABS: CALCIUM 8.2 mg/dL (8.5-10.1); CREATININE 1.1 mg/dL (0.6-1.0); GFR 57.5; POTASSIUM 3.7 mmol/L (3.5-5.1)
[2016-09-15] MEDS: IV 1/2 NORMAL SALINE 1,000 ML IV SCH ×3 (06:00→21:59)
[2016-09-15] MEDS: INSULIN ASPART 300 UNITS/3 ML INSULN.PEN SQ SCH ×3 (08:00→17:00)
[2016-09-15] MEDS: FERROUS SULFATE 325 MG TABLET. PO SCH (08:13)
[2016-09-15] MEDS: METOPROLOL TART IMMED RELEASE 50 MG TABLET. PO SCH ×2 (08:13→21:11)
[2016-09-15] MEDS: HYDROcodone/APAP 5/325MG 1 TAB TABLET PO PRN ×2 (08:14→20:06)
[2016-09-15] MEDS: LISINOPRIL 40 MG TABLET. PO SCH (08:14)
[2016-09-15] MEDS: FAMOTIDINE 20 MG/2 ML VIAL IVP SCH (08:15)
[2016-09-15] MEDS: TRIAMTERENE/HCTZ 75/50MG TABLET. PO SCH (08:15)
--- NOTE | 2016-09-15 13:29 | PDOC ---
GI PROGRESS NOTES Date Date/Time DATE: 09/15/16 TIME: 13:24 Subjective Subjective prior bleeding - 3 occasions 2010, 2016 and now Objective Vitals Vital Signs Date Time Temp Pulse Resp B/P (MAP) Pulse Ox O2 Delivery O2 Flow Rate FiO2 09/15/16 11:00 98.1 64 20 153/69 (97) 98 Room Air 98.1 09/15/16 09:31 Room Air 09/15/16 08:14 80 166/74 09/15/16 08:14 Room Air 09/15/16 08:14 80 166/74 09/15/16 08:13 80 166/74 09/15/16 07:25 Room Air 09/15/16 07:00 99.1 80 20 166/74 (104) 98 Room Air 99.1 09/15/16 03:17 98.6 97 20 113/62 (79) 100 Room Air 98.6 09/15/16 03:07 100.0 67 20 113/62 (79) 100 Room Air 100.0 09/14/16 23:00 98.6 63 20 138/54 (82) 96 Room Air 98.6 09/14/16 21:29 20 94 09/14/16 20:30 77 158/66 09/14/16 20:29 20 94 Room Air 09/14/16 20:05 Room Air 09/14/16 19:00 99.7 77 20 158/66 (96) 94 Room Air 99.7 09/14/16 18:00 99.4 99.4 09/14/16 16:00 100.9 71 19 169/69 (102) 100 Room Air 100.9 09/14/16 14:13 32 97 Room Air 09/14/16 13:29 28 99 Room Air Labs Labs Laboratory Tests Test 09/14/16 16:54 09/14/16 20:29 09/15/16 03:50 09/15/16 07:14 Glucose (Fingerstick) 133 mg/dL (70-99) 157 mg/dL (70-99) 134 mg/dL (70-99) White Blood Count 8.5 x10^3/uL (4.0-11.0) Red Blood Count 2.80 x10^6/uL (3.50-5.40) Hemoglobin 8.6 g/dL (12.0-15.5) Hematocrit 25.2 % (36.0-47.0) Mean Corpuscular Volume 90 fL (79-100) Mean Corpuscular Hemoglobin 31 pg (25-35) Mean Corpuscular Hemoglobin Concent 34 g/dL (31-37) Red Cell Distribution Width 15.3 % (11.5-14.5) Platelet Count 148 x10^3/uL (140-400) Sodium Level 144 mmol/L (136-145) Potassium Level 3.7 mmol/L (3.5-5.1) Chloride Level 110 mmol/L (98-107) Carbon Dioxide Level 29 mmol/L (21-32) Anion Gap 5 (6-14) Blood Urea Nitrogen 12 mg/dL (7-20) Creatinine 1.1 mg/dL (0.6-1.0) Estimated GFR (Cockcroft-Gault) 57.5 Glucose Level 121 mg/dL (70-99) Calcium Level 8.2 mg/dL (8.5-10.1) Test 09/15/16 10:31 Glucose (Fingerstick) 157 mg/dL (70-99) Physical Exam Physical Exam chest- clear abd- soft non tender Assessment Assessment Recurrent hematochezia (3 episodes since 2010) with most likely source severe diverticulosis in left colon. Bleeding scan + at splenic flexure and colonoscopy shows left signed tics with rare right sided tics. Angio and CTA were negative for active bleeding or for other possible cause of bleeding Problems: Plan Plan CLD surgery per ALVIN Astorga MD Sep 15, 2016 13:29
--- NOTE | 2016-09-15 16:28 | PDOC ---
Provider Note Provider Note no further gi bleeding +flatus afeb vss abd soft nd nt a/p gi bleed. presumed left colon based on bleeding scan. plan for colectomy on saturday per dr. alfaro. ROMAN STARK MD Sep 15, 2016 16:28
--- NOTE | 2016-09-15 18:52 | PDOC ---
PROGRESS NOTES Subjective Subjective Patient feeling better Hgb stable. Awaiting surgery for gi bleed from slenic flexure of colon. partial colectomy planned for saturday. Objective Objective Vital Signs Date Time Temp Pulse Resp B/P (MAP) Pulse Ox O2 Delivery O2 Flow Rate FiO2 09/15/16 15:00 98.2 65 20 160/44 (82) 99 Room Air 98.2 09/14/16 12:00 1.0 Intake and Output 09/15/16 07:00 Intake Total 1300 ml Output Total 2100 ml Balance -800 ml Intake Oral 1300 ml Output Urine Total 2100 ml # Voids 1 # Bowel Movements 1 Physical Exam Abdomen: Normal bowel sounds Heart: Regular rate Extremities: No edema General: Alert Lungs: Clear to auscultation Assessment Assessment Problems Medical Problems: (1) Lower GI bleed Status: Acute 1. Lower GI bleed with anemia. 2. HTN - controlled with home meds. 3. DM2 - stable, continue SS insulin when needed. 4. prerenal azotemia - much better, continue IVF when NPO and clears when allowed. Plan Plan of Care Monitor Hgb Surgery saturday Comment Review of Relevant I have reviewed the following items veronique (where applicable) has been applied. Labs Laboratory Tests Test 09/14/16 04:30 09/14/16 05:25 09/14/16 11:54 09/14/16 16:54 White Blood Count 9.9 x10^3/uL (4.0-11.0) Red Blood Count 2.91 x10^6/uL (3.50-5.40) Hemoglobin 8.9 g/dL (12.0-15.5) Hematocrit 26.0 % (36.0-47.0) Mean Corpuscular Volume 89 fL (79-100) Mean Corpuscular Hemoglobin 31 pg (25-35) Mean Corpuscular Hemoglobin Concent 34 g/dL (31-37) Red Cell Distribution Width 15.0 % (11.5-14.5) Platelet Count 101 x10^3/uL (140-400) Sodium Level 145 mmol/L (136-145) Potassium Level 3.7 mmol/L (3.5-5.1) Chloride Level 111 mmol/L (98-107) Carbon Dioxide Level 26 mmol/L (21-32) Anion Gap 8 (6-14) Blood Urea Nitrogen 22 mg/dL (7-20) Creatinine 1.0 mg/dL (0.6-1.0) Estimated GFR (Cockcroft-Gault) 64.2 Glucose Level 139 mg/dL (70-99) Calcium Level 7.6 mg/dL (8.5-10.1) Glucose (Fingerstick) 138 mg/dL (70-99) 133 mg/dL (70-99) Test 09/14/16 20:29 09/15/16 03:50 09/15/16 07:14 09/15/16 10:31 Glucose (Fingerstick) 157 mg/dL (70-99) 134 mg/dL (70-99) 157 mg/dL (70-99) White Blood Count 8.5 x10^3/uL (4.0-11.0) Red Blood Count 2.80 x10^6/uL (3.50-5.40) Hemoglobin 8.6 g/dL (12.0-15.5) Hematocrit 25.2 % (36.0-47.0) Mean Corpuscular Volume 90 fL (79-100) Mean Corpuscular Hemoglobin 31 pg (25-35) Mean Corpuscular Hemoglobin Concent 34 g/dL (31-37) Red Cell Distribution Width 15.3 % (11.5-14.5) Platelet Count 148 x10^3/uL (140-400) Sodium Level 144 mmol/L (136-145) Potassium Level 3.7 mmol/L (3.5-5.1) Chloride Level 110 mmol/L (98-107) Carbon Dioxide Level 29 mmol/L (21-32) Anion Gap 5 (6-14) Blood Urea Nitrogen 12 mg/dL (7-20) Creatinine 1.1 mg/dL (0.6-1.0) Estimated GFR (Cockcroft-Gault) 57.5 Glucose Level 121 mg/dL (70-99) Calcium Level 8.2 mg/dL (8.5-10.1) Test 09/15/16 16:22 Glucose (Fingerstick) 118 mg/dL (70-99) Laboratory Tests Test 09/14/16 20:29 09/15/16 03:50 09/15/16 07:14 09/15/16 10:31 Glucose (Fingerstick) 157 mg/dL (70-99) 134 mg/dL (70-99) 157 mg/dL (70-99) White Blood Count 8.5 x10^3/uL (4.0-11.0) Red Blood Count 2.80 x10^6/uL (3.50-5.40) Hemoglobin 8.6 g/dL (12.0-15.5) Hematocrit 25.2 % (36.0-47.0) Mean Corpuscular Volume 90 fL (79-100) Mean Corpuscular Hemoglobin 31 pg (25-35) Mean Corpuscular Hemoglobin Concent 34 g/dL (31-37) Red Cell Distribution Width 15.3 % (11.5-14.5) Platelet Count 148 x10^3/uL (140-400) Sodium Level 144 mmol/L (136-145) Potassium Level 3.7 mmol/L (3.5-5.1) Chloride Level 110 mmol/L (98-107) Carbon Dioxide Level 29 mmol/L (21-32) Anion Gap 5 (6-14) Blood Urea Nitrogen 12 mg/dL (7-20) Creatinine 1.1 mg/dL (0.6-1.0) Estimated GFR (Cockcroft-Gault) 57.5 Glucose Level 121 mg/dL (70-99) Calcium Level 8.2 mg/dL (8.5-10.1) Test 09/15/16 16:22 Glucose (Fingerstick) 118 mg/dL (70-99) Microbiology 09/10/16 Urine Culture - Final, Complete 09/10/16 Urine Culture Result 1 (INGE) - Final, Complete Medications Current Medications Fentanyl Citrate (Fentanyl 2ml Vial) 25 mcg PRN Q15MIN PRN IV PAIN GREATER THAN 3/10 Last administered on 09/10/16 11:15; Start 09/10/16 at 10:00; Stop at 09:59; Status DC Ondansetron HCl (Zofran) 4 mg PRN Q8HRS PRN IV NAUSEA/VOMITING; Start 09/10/16 at 11:30; Stop 09/11/16 at 11:29; Status DC Fentanyl Citrate (Fentanyl 2ml Vial) 50 mcg PRN Q1HR PRN IV PAIN Last administered on 09/11/16 07:40; Start 09/10/16 at 11:30; Stop 09/11/16 at 11:29 ; Status DC Sodium Chloride 1,000 ml @ 125 mls/hr Q8H IV Last administered on 09/10/16 14 :30; Start 09/10/16 at 11:16; Stop 09/11/16 at 11:15; Status DC Sodium Chloride 500 ml @ 500 mls/hr 1X ONCE IV Last administered on 11:35; Start 09/10/16 at 11:30; Stop 09/10/16 at 12:29; Status DC Iohexol (Omnipaque 350 Mg/ml) 90 ml 1X ONCE IV Last administered on 09/10/16 14:00; Start 09/10/16 at 13:30; Stop 09/10/16 at 13:35; Status DC Famotidine (Pepcid) 20 mg DAILY IVP Last administered on 09/15/16 08:15; Start 09/10/16 at 14:00 Diphenhydramine HCl (Benadryl) 25 mg PRN Q6HRS PRN IVP ITCHING Last administered on 09/10/16 17:36; Start 09/10/16 at 17:30 Iohexol (Omnipaque 300 Mg/ml) 100 ml STK-MED ONCE .ROUTE ; Start 09/11/16 at 08: 11; Stop 09/11/16 at 08:12; Status DC Lidocaine/Sodium Bicarbonate (Buffered Lidocaine 1%) 20 ml STK-MED ONCE IJ ; Start 09/11/16 at 08:12; Stop 09/11/16 at 08:13; Status DC Heparin Sodium/ Sodium Chloride 1,500 ml @ As Directed STK-MED ONCE .ROUTE ; Start 09/11/16 at 08:12; Stop 09/11/16 at 08:13; Status DC Midazolam HCl (Versed) 2 mg STK-MED ONCE .ROUTE ; Start 09/11/16 at 08:29; Stop 09/11/16 at 08:30; Status DC Ondansetron HCl (Zofran) 4 mg PRN Q6HRS PRN IV NAUSEA/VOMITING; Start 09/11/16 at 09:00; Stop 09/12/16 at 08:59; Status DC Fentanyl Citrate (Fentanyl 2ml Vial) 25 mcg PRN Q5MIN PRN IV MILD PAIN; Start 09/11/16 at 09:00; Stop 09/12/16 at 08:59; Status DC Fentanyl Citrate (Fentanyl 2ml Vial) 50 mcg PRN Q5MIN PRN IV MODERATE PAIN; Start 09/11/16 at 09:00; Stop 09/12/16 at 08:59; Status DC Ringer's Solution 1,000 ml @ 30 mls/hr Q24H IV ; Start 09/11/16 at 08:46; Stop 09/11/16 at 20:45; Status DC Lidocaine HCl 2 ml PRN 1X PRN ID PRIOR TO IV START; Start 09/11/16 at 09:00; Stop 09/12/16 at 08:59; Status DC Prochlorperazine Edisylate (Compazine) 5 mg PACU PRN PRN IV NAUSEA, MRX1; Start 09/11/16 at 09:00; Stop 09/12/16 at 08:59; Status DC Heparin Sodium/ Sodium Chloride 1,000 unit 1X ONCE IART Last administered on 09:26; Start 09/11/16 at 09:15; Stop 09/11/16 at 09:16; Status DC Lidocaine/Sodium Bicarbonate (Buffered Lidocaine 1%) 20 ml 1X ONCE IJ Last administered on 09/11/16 09:28; Start 09/11/16 at 09:15; Stop 09/11/16 at 09:16 ; Status DC Midazolam HCl (Versed) 2 mg 1X ONCE IV Last administered on 09/11/16 09:28; Start 09/11/16 at 09:15; Stop 09/11/16 at 09:16; Status DC Fentanyl Citrate (Fentanyl 2ml Vial) 100 mcg 1X ONCE IV Last administered on 09:28; Start 09/11/16 at 09:15; Stop 09/11/16 at 09:16; Status DC Iohexol (Omnipaque 300 Mg/ml) 100 ml 1X ONCE IART Last administered on 09:28; Start 09/11/16 at 09:15; Stop 09/11/16 at 09:16; Status DC Diltiazem HCl (Cardizem 24hr Cd) 240 mg DAILY PO Last administered on 08:14; Start 09/11/16 at 17:00 Ferrous Sulfate (Feosol) 325 mg DAILYWBKFT PO Last administered on 09/15/16 08 :13; Start 09/12/16 at 08:00 Acetaminophen/ Hydrocodone Bitart (Lortab 5/325) 1 tab PRN Q6HRS PRN PO PAIN Last administered on 09/15/16 08:14; Start 09/11/16 at 16:30 Lisinopril (Prinivil) 40 mg DAILY PO Last administered on 09/15/16 08:14; Start 09/11/16 at 17:00 Metoprolol Tartrate (Lopressor) 75 mg BID PO Last administered on 09/15/16 08: 13; Start 09/11/16 at 21:00 Triamterene/HCTZ (Maxzide 75/50mg) 1 tab DAILY PO Last administered on 08:15; Start 09/11/16 at 17:00 Insulin Aspart (NovoLOG) 0-5 UNITS TIDWMEALS SQ Last administered on 09/15/16 11:40; Start 09/12/16 at 12:00 Dextrose (Dextrose 50%-Water Syringe) 12.5 gm PRN Q15MIN PRN IV SEE COMMENTS; Start 09/12/16 at 08:45 Sodium Chloride 1,000 ml @ 100 mls/hr Q10H IV Last administered on 09/13/16 07:58; Start 09/12/16 at 08:45; Stop 09/13/16 at 13:44; Status DC Alteplase, Recombinant (Cathflo) 2 mg 1X ONCE INT CAT Last administered on 11:50; Start 09/12/16 at 11:45; Stop 09/12/16 at 11:46; Status DC Sodium Cl/Sod Bicarb/Potass Cl/ PEG (Golytely) 4,000 ml 1X ONCE PO Last administered on 09/13/16 16:33; Start 09/13/16 at 15:00; Stop 09/13/16 at 15:01 ; Status DC Sodium Chloride 1,000 ml @ 100 mls/hr Q10H IV Last administered on 09/15/16 11:37; Start 09/13/16 at 14:00 Fentanyl Citrate (Fentanyl 2ml Vial) 50 mcg PRN Q4HRS PRN IV PAIN Last administered on 09/14/16t 13:29; Start 09/13/16 at 13:45 Fentanyl Citrate (Fentanyl 2ml Vial) 25 mcg PRN Q4HRS PRN IV PAIN Last administered on 09/13/16t 21:55; Start 09/13/16 at 13:45 Ondansetron HCl (Zofran) 4 mg PRN Q6HRS PRN IV NAUSEA/VOMITING; Start 09/14/16 at 07:00; Stop 09/15/16 at 07:00; Status DC Fentanyl Citrate (Fentanyl 2ml Vial) 25 mcg PRN Q5MIN PRN IV MILD PAIN; Start 09/14/16 at 07:00; Stop 09/15/16 at 07:00; Status DC Fentanyl Citrate (Fentanyl 2ml Vial) 50 mcg PRN Q5MIN PRN IV MODERATE PAIN; Start 09/14/16 at 07:00; Stop 09/15/16 at 07:00; Status DC Ringer's Solution 1,000 ml @ 30 mls/hr Q24H IV ; Start 09/14/16 at 07:00; Stop 09/14/16 at 18:59; Status DC Lidocaine HCl 2 ml PRN 1X PRN ID PRIOR TO IV START; Start 09/14/16 at 07:00; Stop 09/15/16 at 07:00; Status DC Prochlorperazine Edisylate (Compazine) 5 mg PACU PRN PRN IV NAUSEA, MRX1; Start 09/14/16 at 07:00; Stop 09/15/16 at 07:00; Status DC Midazolam HCl (Versed) 2 mg PRN 1X PRN IV PRIOR TO PROCEDURE; Start 09/14/16 at 10:00; Stop 09/15/16 at 09:59; Status DC Fentanyl Citrate (Fentanyl 2ml Vial) 25 mcg PRN Q5MIN PRN IV X 2 DOSES FOR PAIN ; Start 09/14/16 at 10:00; Stop 09/15/16 at 09:59; Status DC Fentanyl Citrate (Fentanyl 2ml Vial) 50 mcg PRN Q5MIN PRN IV X 2 DOSES FOR PAIN ; Start 09/14/16 at 10:00; Stop 09/15/16 at 09:59; Status DC Lidocaine HCl 2 ml 1X PRN PRN ID IV START; Start 09/14/16 at 10:00; Stop at 09:59; Status DC Propofol 20 ml @ As Directed STK-MED ONCE IV ; Start 09/14/16 at 10:38; Stop at 10:39; Status DC Lidocaine HCl (Lidocaine Pf 2% Vial) 5 ml STK-MED ONCE .ROUTE ; Start 09/14/16 at 10:38; Stop 09/14/16 at 10:39; Status DC Ondansetron HCl (Zofran) 4 mg PRN Q6HRS PRN IV NAUSEA/VOMITING; Start 09/17/16 at 07:00; Stop 09/18/16 at 06:59 Fentanyl Citrate (Fentanyl 2ml Vial) 25 mcg PRN Q5MIN PRN IV MILD PAIN; Start 09/17/16 at 07:00; Stop 09/18/16 at 06:59 Fentanyl Citrate (Fentanyl 2ml Vial) 50 mcg PRN Q5MIN PRN IV MODERATE PAIN; Start 09/17/16 at 07:00; Stop 09/18/16 at 06:59 Ringer's Solution 1,000 ml @ 30 mls/hr Q24H IV ; Start 09/17/16 at 07:00; Stop 09/17/16 at 18:59 Lidocaine HCl 2 ml PRN 1X PRN ID PRIOR TO IV START; Start 09/17/16 at 07:00; Stop 09/18/16 at 06:59 Prochlorperazine Edisylate (Compazine) 5 mg PACU PRN PRN IV NAUSEA, MRX1; Start 09/17/16 at 07:00; Stop 09/18/16 at 06:59 Active Scripts Active Metoprolol Tartrate 50 Mg Tablet 75 Mg PO BID 30 Days Feosol (Ferrous Sulfate) 325 Mg Tablet 325 Mg PO DAILYWBKFT 30 Days Reported Glimepiride 2 Mg Tablet 1 Tab PO DAILY08 Glimepiride 1 Mg Tablet 1 Tab PO [id number] Pravastatin Sodium 80 Mg Tablet 1 Tab PO QHS Metformin Hcl 500 Mg Tablet 1 Tab PO BID Lisinopril 40 Mg Tablet 1 Tab PO DAILY Triamterene-Hctz 75-50 Mg Tab (Triamterene/Hydrochlorothiazid) 1 Each Tablet 1 Tab PO DAILY Diltiazem 24HR Cd (Diltiazem Hcl) 240 Mg Cap.er.24h 240 Mg PO DAILY [place] 5-325 Tablet (Acetaminophen/Hydrocodone Bitart) 1 Each Tablet 1 Tab PO PRN Q6HRS PRN Vitals/I & O Vital Sign - Last 24 Hours 09/14/16 09/14/16 09/14/16 09/14/16 19:00 20:05 20:29 20:30 Temp 99.7 99.7 Pulse 77 77 Resp 20 20 B/P (MAP) 158/66 (96) 158/66 Pulse Ox 94 94 O2 Delivery Room Air Room Air Room Air 09/14/16 09/14/16 09/15/16 09/15/16 21:29 23:00 03:07 03:17 Temp 98.6 100.0 98.6 98.6 100.0 98.6 Pulse 63 67 97 Resp 20 20 20 20 B/P (MAP) 138/54 (82) 113/62 (79) 113/62 (79) Pulse Ox 94 96 100 100 O2 Delivery Room Air Room Air Room Air 09/15/16 09/15/16 09/15/16 09/15/16 07:00 07:25 08:13 08:14 Temp 99.1 99.1 Pulse 80 80 80 Resp 20 B/P (MAP) 166/74 (104) 166/74 166/74 Pulse Ox 98 O2 Delivery Room Air Room Air 09/15/16 09/15/16 09/15/16 09/15/16 08:14 08:14 09:31 11:00 Temp 98.1 98.1 Pulse 80 64 Resp 20 B/P (MAP) 166/74 153/69 (97) Pulse Ox 98 O2 Delivery Room Air Room Air Room Air 09/15/16 15:00 Temp 98.2 98.2 Pulse 65 Resp 20 B/P (MAP) 160/44 (82) Pulse Ox 99 O2 Delivery Room Air Intake and Output 09/14/16 09/14/16 09/15/16 15:00 23:00 07:00 Intake Total 100 ml 900 ml 300 ml Output Total 1000 ml 500 ml 600 ml Balance -900 ml 400 ml -300 ml ELEUTERIO MOSER MD Sep 15, 2016 18:52
[2016-09-16] MEDS: HYDROcodone/APAP 5/325MG 1 TAB TABLET PO PRN ×3 (02:12→16:53)
[2016-09-16 03:01] VITALS: BP 151/41
[2016-09-16 07:00] VITALS: BP 172/73
[2016-09-16] MEDS: FERROUS SULFATE 325 MG TABLET. PO SCH (07:56)
[2016-09-16] MEDS: LISINOPRIL 40 MG TABLET. PO SCH (07:56)
[2016-09-16] MEDS: TRIAMTERENE/HCTZ 75/50MG TABLET. PO SCH (07:56)
[2016-09-16] MEDS: METOPROLOL TART IMMED RELEASE 50 MG TABLET. PO SCH ×2 (07:57→21:49)
[2016-09-16] MEDS: FAMOTIDINE 20 MG/2 ML VIAL IVP SCH (07:58)
[2016-09-16] MEDS: IV 1/2 NORMAL SALINE 1,000 ML IV SCH ×2 (07:58→17:12)
[2016-09-16] MEDS: INSULIN ASPART 300 UNITS/3 ML INSULN.PEN SQ SCH ×3 (08:00→17:00)
[2016-09-16 11:00] VITALS: BP 149/50
--- NOTE | 2016-09-16 11:20 | PDOC ---
PROGRESS NOTES Subjective Subjective Patient without complaints. Patient awaiting bowel surgery due to persistent and recurrent GI bleed Objective Objective Vital Signs Date Time Temp Pulse Resp B/P (MAP) Pulse Ox O2 Delivery O2 Flow Rate FiO2 09/16/16 09:12 99 Room Air 1.0 09/16/16 07:57 74 172/73 09/16/16 07:00 97.9 20 97.9 Intake and Output 09/16/16 07:00 Intake Total 3777 ml Output Total 220 ml Balance 3557 ml Intake Oral 300 ml IV Total 2277 ml Other 1200 ml Output Urine Total 220 ml # Voids 12 Physical Exam Abdomen: Normal bowel sounds Heart: Regular rate Extremities: No edema General: Alert Lungs: Clear to auscultation Assessment Assessment Problems Medical Problems: (1) Lower GI bleed Status: Acute 1. Lower GI bleed with anemia. 2. HTN - controlled with home meds. 3. DM2 - stable, continue SS insulin when needed. 4. prerenal azotemia - much better, continue IVF when NPO and clears when allowed. Plan Plan of Care Awaiting GI surgery. Continue supportive care. Comment Review of Relevant I have reviewed the following items veronique (where applicable) has been applied. Labs Laboratory Tests Test 09/14/16 11:54 09/14/16 16:54 09/14/16 20:29 09/15/16 03:50 Glucose (Fingerstick) 138 mg/dL (70-99) 133 mg/dL (70-99) 157 mg/dL (70-99) White Blood Count 8.5 x10^3/uL (4.0-11.0) Red Blood Count 2.80 x10^6/uL (3.50-5.40) Hemoglobin 8.6 g/dL (12.0-15.5) Hematocrit 25.2 % (36.0-47.0) Mean Corpuscular Volume 90 fL (79-100) Mean Corpuscular Hemoglobin 31 pg (25-35) Mean Corpuscular Hemoglobin Concent 34 g/dL (31-37) Red Cell Distribution Width 15.3 % (11.5-14.5) Platelet Count 148 x10^3/uL (140-400) Sodium Level 144 mmol/L (136-145) Potassium Level 3.7 mmol/L (3.5-5.1) Chloride Level 110 mmol/L (98-107) Carbon Dioxide Level 29 mmol/L (21-32) Anion Gap 5 (6-14) Blood Urea Nitrogen 12 mg/dL (7-20) Creatinine 1.1 mg/dL (0.6-1.0) Estimated GFR (Cockcroft-Gault) 57.5 Glucose Level 121 mg/dL (70-99) Calcium Level 8.2 mg/dL (8.5-10.1) Test 09/15/16 07:14 09/15/16 10:31 09/15/16 16:22 09/15/16 20:13 Glucose (Fingerstick) 134 mg/dL (70-99) 157 mg/dL (70-99) 118 mg/dL (70-99) 158 mg/dL (70-99) Test 09/16/16 07:10 Glucose (Fingerstick) 139 mg/dL (70-99) Laboratory Tests Test 09/15/16 16:22 09/15/16 20:13 09/16/16 07:10 Glucose (Fingerstick) 118 mg/dL (70-99) 158 mg/dL (70-99) 139 mg/dL (70-99) Microbiology 09/10/16 Urine Culture - Final, Complete 09/10/16 Urine Culture Result 1 (INGE) - Final, Complete Medications Current Medications Fentanyl Citrate (Fentanyl 2ml Vial) 25 mcg PRN Q15MIN PRN IV PAIN GREATER THAN 3/10 Last administered on 09/10/16 11:15; Start 09/10/16 at 10:00; Stop at 09:59; Status DC Ondansetron HCl (Zofran) 4 mg PRN Q8HRS PRN IV NAUSEA/VOMITING; Start 09/10/16 at 11:30; Stop 09/11/16 at 11:29; Status DC Fentanyl Citrate (Fentanyl 2ml Vial) 50 mcg PRN Q1HR PRN IV PAIN Last administered on 09/11/16 07:40; Start 09/10/16 at 11:30; Stop 09/11/16 at 11:29 ; Status DC Sodium Chloride 1,000 ml @ 125 mls/hr Q8H IV Last administered on 09/10/16 14 :30; Start 09/10/16 at 11:16; Stop 09/11/16 at 11:15; Status DC Sodium Chloride 500 ml @ 500 mls/hr 1X ONCE IV Last administered on 11:35; Start 09/10/16 at 11:30; Stop 09/10/16 at 12:29; Status DC Iohexol (Omnipaque 350 Mg/ml) 90 ml 1X ONCE IV Last administered on 09/10/16 14:00; Start 09/10/16 at 13:30; Stop 09/10/16 at 13:35; Status DC Famotidine (Pepcid) 20 mg DAILY IVP Last administered on 09/16/16 07:58; Start 09/10/16 at 14:00 Diphenhydramine HCl (Benadryl) 25 mg PRN Q6HRS PRN IVP ITCHING Last administered on 09/10/16 17:36; Start 09/10/16 at 17:30 Iohexol (Omnipaque 300 Mg/ml) 100 ml STK-MED ONCE .ROUTE ; Start 09/11/16 at 08: 11; Stop 09/11/16 at 08:12; Status DC Lidocaine/Sodium Bicarbonate (Buffered Lidocaine 1%) 20 ml STK-MED ONCE IJ ; Start 09/11/16 at 08:12; Stop 09/11/16 at 08:13; Status DC Heparin Sodium/ Sodium Chloride 1,500 ml @ As Directed STK-MED ONCE .ROUTE ; Start 09/11/16 at 08:12; Stop 09/11/16 at 08:13; Status DC Midazolam HCl (Versed) 2 mg STK-MED ONCE .ROUTE ; Start 09/11/16 at 08:29; Stop 09/11/16 at 08:30; Status DC Ondansetron HCl (Zofran) 4 mg PRN Q6HRS PRN IV NAUSEA/VOMITING; Start 09/11/16 at 09:00; Stop 09/12/16 at 08:59; Status DC Fentanyl Citrate (Fentanyl 2ml Vial) 25 mcg PRN Q5MIN PRN IV MILD PAIN; Start 09/11/16 at 09:00; Stop 09/12/16 at 08:59; Status DC Fentanyl Citrate (Fentanyl 2ml Vial) 50 mcg PRN Q5MIN PRN IV MODERATE PAIN; Start 09/11/16 at 09:00; Stop 09/12/16 at 08:59; Status DC Ringer's Solution 1,000 ml @ 30 mls/hr Q24H IV ; Start 09/11/16 at 08:46; Stop 09/11/16 at 20:45; Status DC Lidocaine HCl 2 ml PRN 1X PRN ID PRIOR TO IV START; Start 09/11/16 at 09:00; Stop 09/12/16 at 08:59; Status DC Prochlorperazine Edisylate (Compazine) 5 mg PACU PRN PRN IV NAUSEA, MRX1; Start 09/11/16 at 09:00; Stop 09/12/16 at 08:59; Status DC Heparin Sodium/ Sodium Chloride 1,000 unit 1X ONCE IART Last administered on 09:26; Start 09/11/16 at 09:15; Stop 09/11/16 at 09:16; Status DC Lidocaine/Sodium Bicarbonate (Buffered Lidocaine 1%) 20 ml 1X ONCE IJ Last administered on 09/11/16 09:28; Start 09/11/16 at 09:15; Stop 09/11/16 at 09:16 ; Status DC Midazolam HCl (Versed) 2 mg 1X ONCE IV Last administered on 09/11/16 09:28; Start 09/11/16 at 09:15; Stop 09/11/16 at 09:16; Status DC Fentanyl Citrate (Fentanyl 2ml Vial) 100 mcg 1X ONCE IV Last administered on 09:28; Start 09/11/16 at 09:15; Stop 09/11/16 at 09:16; Status DC Iohexol (Omnipaque 300 Mg/ml) 100 ml 1X ONCE IART Last administered on 09:28; Start 09/11/16 at 09:15; Stop 09/11/16 at 09:16; Status DC Diltiazem HCl (Cardizem 24hr Cd) 240 mg DAILY PO Last administered on 07:57; Start 09/11/16 at 17:00 Ferrous Sulfate (Feosol) 325 mg DAILYWBKFT PO Last administered on 09/16/16 07 :56; Start 09/12/16 at 08:00 Acetaminophen/ Hydrocodone Bitart (Lortab 5/325) 1 tab PRN Q6HRS PRN PO PAIN Last administered on 09/16/16 09:12; Start 09/11/16 at 16:30 Lisinopril (Prinivil) 40 mg DAILY PO Last administered on 09/16/16 07:56; Start 09/11/16 at 17:00 Metoprolol Tartrate (Lopressor) 75 mg BID PO Last administered on 09/16/16 07: 57; Start 09/11/16 at 21:00 Triamterene/HCTZ (Maxzide 75/50mg) 1 tab DAILY PO Last administered on 07:56; Start 09/11/16 at 17:00 Insulin Aspart (NovoLOG) 0-5 UNITS TIDWMEALS SQ Last administered on 09/15/16 11:40; Start 09/12/16 at 12:00 Dextrose (Dextrose 50%-Water Syringe) 12.5 gm PRN Q15MIN PRN IV SEE COMMENTS; Start 09/12/16 at 08:45 Sodium Chloride 1,000 ml @ 100 mls/hr Q10H IV Last administered on 09/13/16 07:58; Start 09/12/16 at 08:45; Stop 09/13/16 at 13:44; Status DC Alteplase, Recombinant (Cathflo) 2 mg 1X ONCE INT CAT Last administered on 11:50; Start 09/12/16 at 11:45; Stop 09/12/16 at 11:46; Status DC Sodium Cl/Sod Bicarb/Potass Cl/ PEG (Golytely) 4,000 ml 1X ONCE PO Last administered on 09/13/16 16:33; Start 09/13/16 at 15:00; Stop 09/13/16 at 15:01 ; Status DC Sodium Chloride 1,000 ml @ 100 mls/hr Q10H IV Last administered on 09/16/16 07:58; Start 09/13/16 at 14:00 Fentanyl Citrate (Fentanyl 2ml Vial) 50 mcg PRN Q4HRS PRN IV PAIN Last administered on 09/14/16 13:29; Start 09/13/16 at 13:45 Fentanyl Citrate (Fentanyl 2ml Vial) 25 mcg PRN Q4HRS PRN IV PAIN Last administered on 09/13/16 21:55; Start 09/13/16 at 13:45 Ondansetron HCl (Zofran) 4 mg PRN Q6HRS PRN IV NAUSEA/VOMITING; Start 09/14/16 at 07:00; Stop 09/15/16 at 07:00; Status DC Fentanyl Citrate (Fentanyl 2ml Vial) 25 mcg PRN Q5MIN PRN IV MILD PAIN; Start 09/14/16 at 07:00; Stop 09/15/16 at 07:00; Status DC Fentanyl Citrate (Fentanyl 2ml Vial) 50 mcg PRN Q5MIN PRN IV MODERATE PAIN; Start 09/14/16 at 07:00; Stop 09/15/16 at 07:00; Status DC Ringer's Solution 1,000 ml @ 30 mls/hr Q24H IV ; Start 09/14/16 at 07:00; Stop 09/14/16 at 18:59; Status DC Lidocaine HCl 2 ml PRN 1X PRN ID PRIOR TO IV START; Start 09/14/16 at 07:00; Stop 09/15/16 at 07:00; Status DC Prochlorperazine Edisylate (Compazine) 5 mg PACU PRN PRN IV NAUSEA, MRX1; Start 09/14/16 at 07:00; Stop 09/15/16 at 07:00; Status DC Midazolam HCl (Versed) 2 mg PRN 1X PRN IV PRIOR TO PROCEDURE; Start 09/14/16 at 10:00; Stop 09/15/16 at 09:59; Status DC Fentanyl Citrate (Fentanyl 2ml Vial) 25 mcg PRN Q5MIN PRN IV X 2 DOSES FOR PAIN ; Start 09/14/16 at 10:00; Stop 09/15/16 at 09:59; Status DC Fentanyl Citrate (Fentanyl 2ml Vial) 50 mcg PRN Q5MIN PRN IV X 2 DOSES FOR PAIN ; Start 09/14/16 at 10:00; Stop 09/15/16 at 09:59; Status DC Lidocaine HCl 2 ml 1X PRN PRN ID IV START; Start 09/14/16 at 10:00; Stop at 09:59; Status DC Propofol 20 ml @ As Directed STK-MED ONCE IV ; Start 09/14/16 at 10:38; Stop at 10:39; Status DC Lidocaine HCl (Lidocaine Pf 2% Vial) 5 ml STK-MED ONCE .ROUTE ; Start 09/14/16 at 10:38; Stop 09/14/16 at 10:39; Status DC Ondansetron HCl (Zofran) 4 mg PRN Q6HRS PRN IV NAUSEA/VOMITING; Start 09/17/16 at 07:00; Stop 09/18/16 at 06:59 Fentanyl Citrate (Fentanyl 2ml Vial) 25 mcg PRN Q5MIN PRN IV MILD PAIN; Start 09/17/16 at 07:00; Stop 09/18/16 at 06:59 Fentanyl Citrate (Fentanyl 2ml Vial) 50 mcg PRN Q5MIN PRN IV MODERATE PAIN; Start 09/17/16 at 07:00; Stop 09/18/16 at 06:59 Ringer's Solution 1,000 ml @ 30 mls/hr Q24H IV ; Start 09/17/16 at 07:00; Stop 09/17/16 at 18:59 Lidocaine HCl 2 ml PRN 1X PRN ID PRIOR TO IV START; Start 09/17/16 at 07:00; Stop 09/18/16 at 06:59 Prochlorperazine Edisylate (Compazine) 5 mg PACU PRN PRN IV NAUSEA, MRX1; Start 09/17/16 at 07:00; Stop 09/18/16 at 06:59 Active Scripts Active Metoprolol Tartrate 50 Mg Tablet 75 Mg PO BID 30 Days Feosol (Ferrous Sulfate) 325 Mg Tablet 325 Mg PO [id number] 30 Days Reported Glimepiride 2 Mg Tablet 1 Tab PO DAILY08 Glimepiride 1 Mg Tablet 1 Tab PO DAILYBFRSUP Pravastatin Sodium 80 Mg Tablet 1 Tab PO QHS Metformin Hcl 500 Mg Tablet 1 Tab PO BID Lisinopril 40 Mg Tablet 1 Tab PO DAILY Triamterene-Hctz 75-50 Mg Tab (Triamterene/Hydrochlorothiazid) 1 Each Tablet 1 Tab PO DAILY Diltiazem 24HR Cd (Diltiazem Hcl) 240 Mg Cap.er.24h 240 Mg PO DAILY [place] 5-325 Tablet (Acetaminophen/Hydrocodone Bitart) 1 Each Tablet 1 Tab PO PRN Q6HRS PRN Vitals/I & O Vital Sign - Last 24 Hours 09/15/16 09/15/16 09/15/16 09/15/16 15:00 19:00 20:00 20:06 Temp 98.2 98.2 98.2 98.2 Pulse 65 83 Resp 20 18 20 B/P (MAP) 160/44 (82) 172/74 (106) Pulse Ox 99 96 O2 Delivery Room Air Room Air Room Air Room Air 09/15/16 09/15/16 09/16/16 09/16/16 21:11 22:35 02:12 03:01 Temp 97.7 97.4 97.7 97.4 Pulse 83 68 69 Resp 18 20 18 B/P (MAP) 172/74 159/72 (101) 151/41 (77) Pulse Ox 100 95 O2 Delivery Room Air Room Air Room Air 09/16/16 09/16/16 09/16/16 09/16/16 03:12 07:00 07:56 07:57 Temp 97.9 97.9 Pulse 74 74 74 Resp 20 20 B/P (MAP) 172/73 (106) 172/73 172/73 Pulse Ox 99 O2 Delivery Room Air Room Air 09/16/16 09/16/16 09/16/16 07:57 08:00 09:12 Pulse 74 B/P (MAP) 172/73 Pulse Ox 99 O2 Delivery Room Air Room Air O2 Flow Rate 1.0 Intake and Output 09/15/16 09/15/16 09/16/16 15:00 23:00 07:00 Intake Total 1077 ml 2700 ml Output Total 220 ml Balance 1077 ml 2480 ml ELEUTERIO MOSER MD Sep 16, 2016 11:20
[2016-09-16 15:00] VITALS: BP 161/64
--- NOTE | 2016-09-16 16:43 | PDOC ---
Provider Note Provider Note +brown, nonbloody bm over the last 24 hrs. no abd pain afeb vss hgb stable abd soft nd nt a/p gi bleed, presumed from left colon/splenic flexure based on nm scan. plan for resection tomorrow. ROMAN STARK MD Sep 16, 2016 16:43
[2016-09-16 19:00] VITALS: BP 162/66
[2016-09-16 23:00] VITALS: BP 154/62
[2016-09-17] VITALS (11 sets, daily range): BP systolic 149–174; BP diastolic 69–92
[2016-09-17] MEDS: IV 1/2 NORMAL SALINE 1,000 ML IV SCH ×2 (02:14→18:23)
[2016-09-17] MEDS ORDERED: LIDOCAINE 1% 1 ML SYRINGE. ID PRN (07:00)
[2016-09-17] MEDS ORDERED: PROCHLORPERAZINE 10 MG/2 ML VIAL. IV PRN (07:00)
[2016-09-17] MEDS ORDERED: ONDANSETRON PF 4 MG/2 ML VIAL. IV PRN ×2 (07:00→10:45)
[2016-09-17] MEDS ORDERED: fentaNYL PF VIAL 100 MCG/2 ML VIAL IV PRN (07:00)
[2016-09-17] MEDS ORDERED: IV RINGERS,LACTATED 1000ML 1,000 ML IV SCH (07:00)
[2016-09-17] MEDS ORDERED: BUPIVACAINE-EPI 0.5%-1:200000 50 ML VIAL. ONE (07:24)
--- NOTE | 2016-09-17 07:39 | PDOC ---
SURGICAL PROGRESS NOTE Subjective Pre-Op Note 81 yo F with recurrent LGI bleeding, suspected to be related to diverticular disease (positive bleeding scan splenic flexures), s/p multiple transfusions. No obvious current bleeding, but given multiple recurrence, resection indicated. TO OR for lap vs open left colon resection. R/B/A d/w pt. Vital Signs Vital Signs Date Time Temp Pulse Resp B/P (MAP) Pulse Ox O2 Delivery O2 Flow Rate FiO2 09/17/16 03:00 98.4 95 18 174/69 (104) 91 Room Air 98.4 09/16/16 17:53 1.0 I&O Intake and Output 09/17/16 07:00 Intake Total 2400 ml Balance 2400 ml Intake Oral 0 ml IV Total 1200 ml Other 1200 ml # Voids 19 # Bowel Movements 1 Labs Laboratory Tests Test 09/15/16 10:31 09/15/16 16:22 09/15/16 20:13 09/16/16 07:10 Glucose (Fingerstick) 157 mg/dL (70-99) 118 mg/dL (70-99) 158 mg/dL (70-99) 139 mg/dL (70-99) Test 09/16/16 11:01 09/16/16 16:10 09/16/16 20:53 Glucose (Fingerstick) 171 mg/dL (70-99) 102 mg/dL (70-99) 165 mg/dL (70-99) Laboratory Tests Test 09/16/16 11:01 09/16/16 16:10 09/16/16 20:53 Glucose (Fingerstick) 171 mg/dL (70-99) 102 mg/dL (70-99) 165 mg/dL (70-99) Problem List Problems Medical Problems: (1) Lower GI bleed Status: Acute Problems: ALBERT PATRICIA MD Sep 17, 2016 07:39
[2016-09-17] MEDS: fentaNYL PF VIAL 100 MCG/2 ML VIAL IV PRN ×4 (07:40→11:30)
[2016-09-17] MEDS ORDERED: fentaNYL PF VIAL 250 MCG/5 ML VIAL ONE (07:41)
[2016-09-17] MEDS ORDERED: DESFLURANE > 120 MINUTES IH ONE (07:42)
[2016-09-17] MEDS ORDERED: PROPOFOL 20 ML IV ONE (07:42)
[2016-09-17] MEDS ORDERED: ROCURONIUM 50 MG/5 ML VIAL. ONE ×2 (07:42→09:11)
[2016-09-17] MEDS ORDERED: ONDANSETRON PF 4 MG/2 ML VIAL. ONE (07:42)
[2016-09-17] MEDS ORDERED: DEXAMETHASONE SOD PHOS 20 MG/5 ML VIAL. ONE (07:42)
[2016-09-17] MEDS ORDERED: LIDOCAINE 2% PF Vial for OR 5 ML VIAL. ONE (07:42)
[2016-09-17] MEDS: METOPROLOL TART IMMED RELEASE 50 MG TABLET. PO SCH ×2 (07:45→21:08)
[2016-09-17] MEDS ORDERED: PHENYLEPHRINE in 0.9% NACL PF 1 MG/10 ML DISP.SYRIN. IV ONE (07:45)
[2016-09-17] MEDS: FERROUS SULFATE 325 MG TABLET. PO SCH (08:00)
[2016-09-17] MEDS: INSULIN ASPART 300 UNITS/3 ML INSULN.PEN SQ SCH ×3 (08:00→17:00)
[2016-09-17] MEDS ORDERED: LABETALOL 20 MG/4 ML DISP.SYRIN. ONE (08:42)
[2016-09-17] MEDS: FAMOTIDINE 20 MG/2 ML VIAL IVP SCH (09:00)
[2016-09-17] MEDS: LISINOPRIL 40 MG TABLET. PO SCH (09:00)
[2016-09-17] MEDS: TRIAMTERENE/HCTZ 75/50MG TABLET. PO SCH (09:00)
[2016-09-17] MEDS ORDERED: INSULIN REGULAR 100 UNIT/ML 10ML VIAL. ONE (09:21)
[2016-09-17] MEDS ORDERED: GLYCOPYRROLATE 1 MG/5 ML VIAL. ONE (09:34)
[2016-09-17] MEDS ORDERED: NEOSTIGMINE METHYLSULFATE 5 MG/5 ML SYRINGE. ONE (09:35)
--- NOTE | 2016-09-17 10:23 | PDOC ---
Objective: Objective: Out of room. Vital Signs: Vital Signs Date Time Temp Pulse Resp B/P (MAP) Pulse Ox O2 Delivery O2 Flow Rate FiO2 09/17/16 07:52 15 99 Room Air 1.0 09/17/16 07:45 77 189/86 09/17/16 07:38 98.8 98.8 Labs: Laboratory Tests Test 09/16/16 11:01 09/16/16 16:10 09/16/16 20:53 09/17/16 07:18 Glucose (Fingerstick) 171 mg/dL 102 mg/dL 165 mg/dL 153 mg/dL Test 09/17/16 09:19 Glucose (Fingerstick) 200 mg/dL PE: no exam A/P: Recurrent GI bleeding/hematochezia -workup this admission: bleeding scan +, CTA -, angiogram -, colonoscopy w/ mcintyre diverticulosis (worse in left colon) -- Colon resection today, will follow. PAGE SCHOFIELD Sep 17, 2016 10:23
[2016-09-17] MEDS: IV RINGERS,LACTATED 1000ML 1,000 ML IV SCH ×2 (10:35→20:35)
[2016-09-17] MEDS: IV NORMAL SALINE 1000ML BAG 1,000 ML IV SCH (10:35)
[2016-09-17] MEDS ORDERED: ENOXAPARIN 40 MG/0.4 ML SYRINGE. SQ SCH (10:45)
[2016-09-17] MEDS ORDERED: 0.9 % SODIUM CHLORIDE 10 ML DISP.SYRIN. IV PRN (10:45)
[2016-09-17] MEDS ORDERED: NALOXONE 0.4 MG/ML VIAL. IV PRN (10:45)
--- NOTE | 2016-09-17 10:52 | RAD ---
EXAM: Abdomen one view. HISTORY: Postoperative, instrument count. COMPARISON: None. FINDINGS: A frontal view of the abdomen is obtained. No retained surgical object is identified. A surgical drain given by history is not well seen. There are changes of right total hip arthroplasty at L4-5 instrumented posterior fusion. There are no distended small bowel loops. There is gas distally. There are calcified granulomas in the spleen. IMPRESSION: 1. No retained surgical object is identified.
--- NOTE | 2016-09-17 10:53 | PDOC ---
BRIEF OPERATIVE NOTE Date: Sep 17, 2016 Pre-Op Diagnosis Lower GI bleeding, splenic flexure by bleeding scan, suspected diverticular in nature Post-Op Diagnosis same Procedure Performed Laparoscopic left colon resection, takedown of splenic flexure, liver biopsy Surgeon Chidi Patricia Anesthesia Type: General, Local Blood Loss 75 Specimens Obtained left colon, liver biopsy Findings multiple white nodules on liver, biopsied, left colon with multiple diverticuli , morbid obesity Complications none OPerative Note After obtaining informed consent, patient was taken to the OR and induced under GETA. Patient was prepped and draped usual fashion over the abdominal wall. 0.5% Marcaine injected in the supraumbilical area. Incision made using 11 blade scapel. 5 mm non bladed trocar introduced under laparoscopic guidance. Pneumoperitoneum thus established. 5mm ports also place suprapubic and epigastric. The abdominal cavity was explored. Multiple white nodules were noted in the liver. A series of these were excised using scissors and hemostasis was obtained using cautery. The Gallbladder was normal in appearance. The small bowel was normal in appearance, as well as the spleen and stomach. Patient is obese making to procedure difficult, throughout. The splenic flexure of the colon was mobilized using ligasure and the flexure was taken down. The left white line of toldt was divided using scissors and the left colon was mobilized. The retroperitoneum was not significantly violated and the mesentery was not extensively divided, given no need for lymph node dissection. The dissection was not carried deep into the pelvis, and the ureter was not felt to be placed at risk. The left colon was then eviscerated through the left abdominal wall. The colon was resected well onto the transverse colon and to approximately the sigmoid colon. A side to side stapled anastamosis was created using a 75 stapler. The end was sealed using a 75 stapler. The anastamosis was patent, viable, under no tension and without evidence of leakage. A sigmoidoscopy was used to blow air across the anastamosis without evidence of air leak. The bowel was returned to the cavity. The fascia was reapproximated with 0 looped PDS. The abdominal cavity was explored laparoscopically. There was no evidence of additional pathology or bleeding. All port were removed without evidence of bleeding. [place] drain was placed in the left abdominal incision. Skin incisions approxiamated using 3 0 vicryl and 4 0 monocryl. 3 0 nylon secured the scott. Sterile dressings placed over all wounds. Patient tolerated procedure well and transferred to PACU in a stable condition. All counts were correct. There were no immediate complications. Wound class is 3. CHIDI PATRICIA MD Sep 17, 2016 10:53
--- NOTE | 2016-09-17 14:42 | PATHOLOGY ---
PATHOLOGY REPORT * * * * * * * * FINAL DIAGNOSIS: Colon, sigmoid, biopsy: - Adenomatous polyp. - Moderate acute and chronic inflammation. (SK[facility]/db; 09/17/2016) REPORT ELECTRONICALLY SIGNED BY: Margarita Cummings M.D. DATE/TIME: 09/17/2016 14:42 * * * * * * * * GROSS PATHOLOGY: Received in formalin labeled "Skylar Mcclure, sigmoid polyp," is a segment of sheppard soft tissue measuring 0.6 cm in maximum dimension. The specimen is submitted entirely in cassette A1. ([facility]; 09/14/16) INITIAL CPT CODE(S): A; 26945 Professional services performed by [facility] [place] [address] Technical services performed by [facility] at [address] [place] [address], [place] [address]. SPECIMEN(S) RECEIVED: A.Sigmoid polyp CLINICAL HISTORY: GI bleed PATIENT: SKYLAR MCCLURE /AGE: 1 1935 (Age: 81) PATIENT #: [id number] ALT CASE #: SPECIMEN COLLECTION DATE: 09/14/2016 SPECIMEN RECEIVED DATE: 09/14/2016 [facility] - [id number] [place] [address] - PHONE: [phone] * * * END OF REPORT * * *
[2016-09-17] MEDS: ENOXAPARIN 40 MG/0.4 ML SYRINGE. SQ SCH (21:53)
[2016-09-18 03:00] VITALS: BP_SYST 154; BP_SYST 168; BP_DIAS 64; BP_DIAS 71
[2016-09-18] MEDS: IV RINGERS,LACTATED 1000ML 1,000 ML IV SCH ×2 (03:30→16:35)
[2016-09-18] MEDS: IV 1/2 NORMAL SALINE 1,000 ML IV SCH ×3 (04:53→23:17)
[2016-09-18 05:34] LABS: CALCIUM 7.9 mg/dL (8.5-10.1); CREATININE 1.6 mg/dL (0.6-1.0); GFR 37.3
[2016-09-18 06:07] LABS: BASO % 0 % (0-3); EOS % 0 % (0-3); HEMOGLOBIN 8.5 g/dL (12.0-15.5); LYMPH # 0.8 x10^3/uL (1.0-4.8); LYMPH % 6 % (24-48); MEAN CORPUSCULAR HEMOGLOBIN 31 pg (25-35); MEAN CORPUSCULAR HGB CONC 34 g/dL (31-37); MEAN CORPUSCULAR VOLUME 90 fL (79-100); MONO % 9 % (0-9); NEUT % 85 % (31-73); PLATELET COUNT 322 x10^3/uL (140-400); RED BLOOD COUNT 2.77 x10^6/uL (3.50-5.40); RED CELL DISTRIBUTION WIDTH 15.2 % (11.5-14.5); WHITE BLOOD COUNT 14.4 x10^3/uL (4.0-11.0)
[2016-09-18 06:30] LABS: POTASSIUM 4.2 mmol/L (3.5-5.1)
[2016-09-18 07:00] VITALS: BP 147/77
[2016-09-18] MEDS: INSULIN ASPART 300 UNITS/3 ML INSULN.PEN SQ SCH ×3 (07:58→16:48)
[2016-09-18 08:55] LABS: PLT ESTIMATE ADEQUATE (ADEQUATE)
[2016-09-18] MEDS: LISINOPRIL 40 MG TABLET. PO SCH (09:00)
[2016-09-18] MEDS: TRIAMTERENE/HCTZ 75/50MG TABLET. PO SCH (09:00)
[2016-09-18] MEDS: FERROUS SULFATE 325 MG TABLET. PO SCH (09:00)
[2016-09-18] MEDS: IV NORMAL SALINE 1000ML BAG 1,000 ML IV SCH (10:35)
[2016-09-18 10:48] VITALS: BP 151/69
--- NOTE | 2016-09-18 12:42 | PDOC ---
Subjective: Subjective: Feeling okay, pain managed w/ pump. Belching, reflux. No flatus. Objective: Objective: Has not received PO meds. Vital Signs: Vital Signs Date Time Temp Pulse Resp B/P (MAP) Pulse Ox O2 Delivery O2 Flow Rate FiO2 09/18/16 10:48 97.5 93 20 151/69 (96) 97 Nasal Cannula 2.0 97.5 Labs: Laboratory Tests Test 09/17/16 17:17 09/17/16 20:38 09/18/16 04:00 09/18/16 07:03 Glucose (Fingerstick) 208 mg/dL 219 mg/dL 156 mg/dL White Blood Count 14.4 x10^3/uL Red Blood Count 2.77 x10^6/uL Hemoglobin 8.5 g/dL Hematocrit 25.0 % Mean Corpuscular Volume 90 fL Mean Corpuscular Hemoglobin 31 pg Mean Corpuscular Hemoglobin Concent 34 g/dL Red Cell Distribution Width 15.2 % Platelet Count 322 x10^3/uL Neutrophils (%) (Auto) 85 % Lymphocytes (%) (Auto) 6 % Monocytes (%) (Auto) 9 % Eosinophils (%) (Auto) 0 % Basophils (%) (Auto) 0 % Neutrophils # (Auto) 12.3 x10^3uL Lymphocytes # (Auto) 0.8 x10^3/uL Monocytes # (Auto) 1.3 x10^3/uL Eosinophils # (Auto) 0.0 x10^3/uL Basophils # (Auto) 0.0 x10^3/uL Segmented Neutrophils % 76 % Band Neutrophils % 9 % Lymphocytes % 8 % Monocytes % 7 % Platelet Estimate Adequate Sodium Level 140 mmol/L Potassium Level 4.2 mmol/L Chloride Level 104 mmol/L Carbon Dioxide Level 28 mmol/L Anion Gap 8 Blood Urea Nitrogen 13 mg/dL Creatinine 1.6 mg/dL Estimated GFR (Cockcroft-Gault) 37.3 Glucose Level 172 mg/dL Calcium Level 7.9 mg/dL Test 09/18/16 11:35 Glucose (Fingerstick) 159 mg/dL PE: GEN: NAD, up to chair LUNGS: clear HEART: RRR ABD: soft NEURO/PSYCH: A & O 3 A/P: Recurrent GI bleeding S/p left colon resection and takedown of splenic flexure 7/17/17 Liver nodules Reflux Adenomatous colon polyp -- Diet per surgery. Await pathology. Continue Pepcid IV - can add PO PPI when resumes eating. PAGE SCHOFIELD Sep 18, 2016 12:42
[2016-09-18] MEDS: FAMOTIDINE 20 MG/2 ML VIAL IVP SCH (13:00)
--- NOTE | 2016-09-18 13:11 | PDOC ---
PROGRESS NOTES Subjective Subjective Patient feeling ok POD #1. no flatus pain under good control. Objective Objective Vital Signs Date Time Temp Pulse Resp B/P (MAP) Pulse Ox O2 Delivery O2 Flow Rate FiO2 09/18/16 10:48 97.5 93 20 151/69 (96) 97 Nasal Cannula 2.0 97.5 Intake and Output 09/18/16 07:00 Intake Total 3597.75 ml Output Total 945 ml Balance 2652.75 ml Intake Oral 0 ml IV Total 3597.75 ml Output Urine Total 870 ml Drainage Total 0 ml Estimated Blood Loss 75 ml Physical Exam Abdomen: Other (No BS, dressing dry) Heart: Regular rate Extremities: No edema General: Alert Lungs: Clear to auscultation Assessment Assessment Problems Medical Problems: (1) Lower GI bleed Status: Acute Lower GI bleed with anemia. S/p left colon resection and takedown of splenic flexure 09/17/16 HTN - controlled with home meds DM2 - stable, continue SS insulin when needed. prerenal azotemia - much better, continue IVF when NPO and clears when allowed. Liver nodules Reflux Adenomatous colon polyp Plan Plan of Care Add IV beta curtis while NPO Monitor BP Awhile bowel activity Increase activity as able IS to bed side Comment Review of Relevant I have reviewed the following items veronique (where applicable) has been applied. Labs Laboratory Tests Test 09/16/16 16:10 09/16/16 20:53 09/17/16 04:34 09/17/16 07:18 Glucose (Fingerstick) 102 mg/dL (70-99) 165 mg/dL (70-99) 153 mg/dL (70-99) Nasal Screen MRSA (PCR) Negative (Negative) Test 09/17/16 09:19 09/17/16 10:55 09/17/16 17:17 09/17/16 20:38 Glucose (Fingerstick) 200 mg/dL (70-99) 209 mg/dL (70-99) 208 mg/dL (70-99) 219 mg/dL (70-99) Test 09/18/16 04:00 09/18/16 07:03 09/18/16 11:35 White Blood Count 14.4 x10^3/uL (4.0-11.0) Red Blood Count 2.77 x10^6/uL (3.50-5.40) Hemoglobin 8.5 g/dL (12.0-15.5) Hematocrit 25.0 % (36.0-47.0) Mean Corpuscular Volume 90 fL (79-100) Mean Corpuscular Hemoglobin 31 pg (25-35) Mean Corpuscular Hemoglobin Concent 34 g/dL (31-37) Red Cell Distribution Width 15.2 % (11.5-14.5) Platelet Count 322 x10^3/uL (140-400) Neutrophils (%) (Auto) 85 % (31-73) Lymphocytes (%) (Auto) 6 % (24-48) Monocytes (%) (Auto) 9 % (0-9) Eosinophils (%) (Auto) 0 % (0-3) Basophils (%) (Auto) 0 % (0-3) Neutrophils # (Auto) 12.3 x10^3uL (1.8-7.7) Lymphocytes # (Auto) 0.8 x10^3/uL (1.0-4.8) Monocytes # (Auto) 1.3 x10^3/uL (0.0-1.1) Eosinophils # (Auto) 0.0 x10^3/uL (0.0-0.7) Basophils # (Auto) 0.0 x10^3/uL (0.0-0.2) Segmented Neutrophils % 76 % (35-66) Band Neutrophils % 9 % (0-9) Lymphocytes % 8 % (24-48) Monocytes % 7 % (0-10) Platelet Estimate Adequate (ADEQUATE) Sodium Level 140 mmol/L (136-145) Potassium Level 4.2 mmol/L (3.5-5.1) Chloride Level 104 mmol/L (98-107) Carbon Dioxide Level 28 mmol/L (21-32) Anion Gap 8 (6-14) Blood Urea Nitrogen 13 mg/dL (7-20) Creatinine 1.6 mg/dL (0.6-1.0) Estimated GFR (Cockcroft-Gault) 37.3 Glucose Level 172 mg/dL (70-99) Calcium Level 7.9 mg/dL (8.5-10.1) Glucose (Fingerstick) 156 mg/dL (70-99) 159 mg/dL (70-99) Laboratory Tests Test 7/17/17 17:17 09/17/16 20:38 09/18/16 04:00 09/18/16 07:03 Glucose (Fingerstick) 208 mg/dL (70-99) 219 mg/dL (70-99) 156 mg/dL (70-99) White Blood Count 14.4 x10^3/uL (4.0-11.0) Red Blood Count 2.77 x10^6/uL (3.50-5.40) Hemoglobin 8.5 g/dL (12.0-15.5) Hematocrit 25.0 % (36.0-47.0) Mean Corpuscular Volume 90 fL (79-100) Mean Corpuscular Hemoglobin 31 pg (25-35) Mean Corpuscular Hemoglobin Concent 34 g/dL (31-37) Red Cell Distribution Width 15.2 % (11.5-14.5) Platelet Count 322 x10^3/uL (140-400) Neutrophils (%) (Auto) 85 % (31-73) Lymphocytes (%) (Auto) 6 % (24-48) Monocytes (%) (Auto) 9 % (0-9) Eosinophils (%) (Auto) 0 % (0-3) Basophils (%) (Auto) 0 % (0-3) Neutrophils # (Auto) 12.3 x10^3uL (1.8-7.7) Lymphocytes # (Auto) 0.8 x10^3/uL (1.0-4.8) Monocytes # (Auto) 1.3 x10^3/uL (0.0-1.1) Eosinophils # (Auto) 0.0 x10^3/uL (0.0-0.7) Basophils # (Auto) 0.0 x10^3/uL (0.0-0.2) Segmented Neutrophils % 76 % (35-66) Band Neutrophils % 9 % (0-9) Lymphocytes % 8 % (24-48) Monocytes % 7 % (0-10) Platelet Estimate Adequate (ADEQUATE) Sodium Level 140 mmol/L (136-145) Potassium Level 4.2 mmol/L (3.5-5.1) Chloride Level 104 mmol/L (98-107) Carbon Dioxide Level 28 mmol/L (21-32) Anion Gap 8 (6-14) Blood Urea Nitrogen 13 mg/dL (7-20) Creatinine 1.6 mg/dL (0.6-1.0) Estimated GFR (Cockcroft-Gault) 37.3 Glucose Level 172 mg/dL (70-99) Calcium Level 7.9 mg/dL (8.5-10.1) Test 09/18/16 11:35 Glucose (Fingerstick) 159 mg/dL (70-99) Microbiology 09/10/16 Urine Culture - Final, Complete 09/10/16 Urine Culture Result 1 (INGE) - Final, Complete Medications Current Medications Fentanyl Citrate (Fentanyl 2ml Vial) 25 mcg PRN Q15MIN PRN IV PAIN GREATER THAN 3/10 Last administered on 09/10/16 11:15; Start 09/10/16 at 10:00; Stop at 09:59; Status DC Ondansetron HCl (Zofran) 4 mg PRN Q8HRS PRN IV NAUSEA/VOMITING; Start 09/10/16 at 11:30; Stop 09/11/16 at 11:29; Status DC Fentanyl Citrate (Fentanyl 2ml Vial) 50 mcg PRN Q1HR PRN IV PAIN Last administered on 09/11/16 07:40; Start 09/10/16 at 11:30; Stop 09/11/16 at 11:29 ; Status DC Sodium Chloride 1,000 ml @ 125 mls/hr Q8H IV Last administered on 09/10/16 14 :30; Start 09/10/16 at 11:16; Stop 09/11/16 at 11:15; Status DC Sodium Chloride 500 ml @ 500 mls/hr 1X ONCE IV Last administered on 11:35; Start 09/10/16 at 11:30; Stop 09/10/16 at 12:29; Status DC Iohexol (Omnipaque 350 Mg/ml) 90 ml 1X ONCE IV Last administered on 09/10/16 14:00; Start 09/10/16 at 13:30; Stop 09/10/16 at 13:35; Status DC Famotidine (Pepcid) 20 mg DAILY IVP Last administered on 09/18/16 13:00; Start 09/10/16 at 14:00 Diphenhydramine HCl (Benadryl) 25 mg PRN Q6HRS PRN IVP ITCHING Last administered on 09/10/16t 17:36; Start 09/10/16 at 17:30 Iohexol (Omnipaque 300 Mg/ml) 100 ml STK-MED ONCE .ROUTE ; Start 09/11/16 at 08: 11; Stop 09/11/16 at 08:12; Status DC Lidocaine/Sodium Bicarbonate (Buffered Lidocaine 1%) 20 ml STK-MED ONCE IJ ; Start 09/11/16 at 08:12; Stop 09/11/16 at 08:13; Status DC Heparin Sodium/ Sodium Chloride 1,500 ml @ As Directed STK-MED ONCE .ROUTE ; Start 09/11/16 at 08:12; Stop 09/11/16 at 08:13; Status DC Midazolam HCl (Versed) 2 mg STK-MED ONCE .ROUTE ; Start 09/11/16 at 08:29; Stop 09/11/16 at 08:30; Status DC Ondansetron HCl (Zofran) 4 mg PRN Q6HRS PRN IV NAUSEA/VOMITING; Start 09/11/16 at 09:00; Stop 09/12/16 at 08:59; Status DC Fentanyl Citrate (Fentanyl 2ml Vial) 25 mcg PRN Q5MIN PRN IV MILD PAIN; Start 09/11/16 at 09:00; Stop 09/12/16 at 08:59; Status DC Fentanyl Citrate (Fentanyl 2ml Vial) 50 mcg PRN Q5MIN PRN IV MODERATE PAIN; Start 09/11/16 at 09:00; Stop 09/12/16 at 08:59; Status DC Ringer's Solution 1,000 ml @ 30 mls/hr Q24H IV ; Start 09/11/16 at 08:46; Stop 09/11/16 at 20:45; Status DC Lidocaine HCl 2 ml PRN 1X PRN ID PRIOR TO IV START; Start 09/11/16 at 09:00; Stop 09/12/16 at 08:59; Status DC Prochlorperazine Edisylate (Compazine) 5 mg PACU PRN PRN IV NAUSEA, MRX1; Start 09/11/16 at 09:00; Stop 09/12/16 at 08:59; Status DC Heparin Sodium/ Sodium Chloride 1,000 unit 1X ONCE IART Last administered on t 09:26; Start 09/11/16 at 09:15; Stop 09/11/16 at 09:16; Status DC Lidocaine/Sodium Bicarbonate (Buffered Lidocaine 1%) 20 ml 1X ONCE IJ Last administered on 09/11/16 09:28; Start 09/11/16 at 09:15; Stop 09/11/16 at 09:16 ; Status DC Midazolam HCl (Versed) 2 mg 1X ONCE IV Last administered on 09/11/16 09:28; Start 09/11/16 at 09:15; Stop 09/11/16 at 09:16; Status DC Fentanyl Citrate (Fentanyl 2ml Vial) 100 mcg 1X ONCE IV Last administered on 09:28; Start 09/11/16 at 09:15; Stop 09/11/16 at 09:16; Status DC Iohexol (Omnipaque 300 Mg/ml) 100 ml 1X ONCE IART Last administered on 09:28; Start 09/11/16 at 09:15; Stop 09/11/16 at 09:16; Status DC Diltiazem HCl (Cardizem 24hr Cd) 240 mg DAILY PO Last administered on 07:57; Start 09/11/16 at 17:00 Ferrous Sulfate (Feosol) 325 mg DAILYWBKFT PO Last administered on 09/16/16 07 :56; Start 09/12/16 at 08:00 Acetaminophen/ Hydrocodone Bitart (Lortab 5/325) 1 tab PRN Q6HRS PRN PO PAIN Last administered on 09/16/16 16:53; Start 09/11/16 at 16:30 Lisinopril (Prinivil) 40 mg DAILY PO Last administered on 09/16/16 07:56; Start 09/11/16 at 17:00 Metoprolol Tartrate (Lopressor) 75 mg BID PO Last administered on 09/17/16 07: 45; Start 09/11/16 at 21:00; Stop 09/18/16 at 13:02; Status DC Triamterene/HCTZ (Maxzide 75/50mg) 1 tab DAILY PO Last administered on 07:56; Start 09/11/16 at 17:00 Insulin Aspart (NovoLOG) 0-5 UNITS TIDWMEALS SQ Last administered on 09/16/16 12:10; Start 09/12/16 at 12:00 Dextrose (Dextrose 50%-Water Syringe) 12.5 gm PRN Q15MIN PRN IV SEE COMMENTS; Start 09/12/16 at 08:45 Sodium Chloride 1,000 ml @ 100 mls/hr Q10H IV Last administered on 09/13/16 07:58; Start 09/12/16 at 08:45; Stop 09/13/16 at 13:44; Status DC Alteplase, Recombinant (Cathflo) 2 mg 1X ONCE INT CAT Last administered on 11:50; Start 09/12/16 at 11:45; Stop 09/12/16 at 11:46; Status DC Sodium Cl/Sod Bicarb/Potass Cl/ PEG (Golytely) 4,000 ml 1X ONCE PO Last administered on 09/13/16 16:33; Start 09/13/16 at 15:00; Stop 09/13/16 at 15:01 ; Status DC Sodium Chloride 1,000 ml @ 100 mls/hr Q10H IV Last administered on 09/18/16 04:53; Start 09/13/16 at 14:00 Fentanyl Citrate (Fentanyl 2ml Vial) 50 mcg PRN Q4HRS PRN IV PAIN Last administered on 09/14/16 13:29; Start 09/13/16 at 13:45 Fentanyl Citrate (Fentanyl 2ml Vial) 25 mcg PRN Q4HRS PRN IV PAIN Last administered on 09/13/16 21:55; Start 09/13/16 at 13:45 Ondansetron HCl (Zofran) 4 mg PRN Q6HRS PRN IV NAUSEA/VOMITING; Start 09/14/16 at 07:00; Stop 09/15/16 at 07:00; Status DC Fentanyl Citrate (Fentanyl 2ml Vial) 25 mcg PRN Q5MIN PRN IV MILD PAIN; Start 09/14/16 at 07:00; Stop 09/15/16 at 07:00; Status DC Fentanyl Citrate (Fentanyl 2ml Vial) 50 mcg PRN Q5MIN PRN IV MODERATE PAIN; Start 09/14/16 at 07:00; Stop 09/15/16 at 07:00; Status DC Ringer's Solution 1,000 ml @ 30 mls/hr Q24H IV ; Start 09/14/16 at 07:00; Stop 09/14/16 at 18:59; Status DC Lidocaine HCl 2 ml PRN 1X PRN ID PRIOR TO IV START; Start 09/14/16 at 07:00; Stop 09/15/16 at 07:00; Status DC Prochlorperazine Edisylate (Compazine) 5 mg PACU PRN PRN IV NAUSEA, MRX1; Start 09/14/16 at 07:00; Stop 09/15/16 at 07:00; Status DC Midazolam HCl (Versed) 2 mg PRN 1X PRN IV PRIOR TO PROCEDURE; Start 09/14/16 at 10:00; Stop 09/15/16 at 09:59; Status DC Fentanyl Citrate (Fentanyl 2ml Vial) 25 mcg PRN Q5MIN PRN IV X 2 DOSES FOR PAIN ; Start 09/14/16 at 10:00; Stop 09/15/16 at 09:59; Status DC Fentanyl Citrate (Fentanyl 2ml Vial) 50 mcg PRN Q5MIN PRN IV X 2 DOSES FOR PAIN ; Start 09/14/16 at 10:00; Stop 09/15/16 at 09:59; Status DC Lidocaine HCl 2 ml 1X PRN PRN ID IV START; Start 09/14/16 at 10:00; Stop at 09:59; Status DC Propofol 20 ml @ As Directed STK-MED ONCE IV ; Start 09/14/16 at 10:38; Stop at 10:39; Status DC Lidocaine HCl (Lidocaine Pf 2% Vial) 5 ml STK-MED ONCE .ROUTE ; Start 09/14/16 at 10:38; Stop 09/14/16 at 10:39; Status DC Ondansetron HCl (Zofran) 4 mg PRN Q6HRS PRN IV NAUSEA/VOMITING; Start 09/17/16 at 07:00; Stop 09/17/16 at 16:39; Status DC Fentanyl Citrate (Fentanyl 2ml Vial) 25 mcg PRN Q5MIN PRN IV MILD PAIN; Start 09/17/16 at 07:00; Stop 09/17/16 at 16:39; Status DC Fentanyl Citrate (Fentanyl 2ml Vial) 50 mcg PRN Q5MIN PRN IV MODERATE PAIN Last administered on 09/17/16t 11:30; Start 09/17/16 at 07:00; Stop 09/17/16 at 16:39; Status DC Ringer's Solution 1,000 ml @ 30 mls/hr Q24H IV Last administered on 09/17/16 07:00; Start 09/17/16 at 07:00; Stop 09/17/16 at 16:39; Status DC Lidocaine HCl 2 ml PRN 1X PRN ID PRIOR TO IV START; Start 09/17/16 at 07:00; Stop 09/17/16 at 16:39; Status DC Prochlorperazine Edisylate (Compazine) 5 mg PACU PRN PRN IV NAUSEA, MRX1; Start 09/17/16 at 07:00; Stop 09/17/16 at 16:39; Status DC Cefoxitin Sodium 2 gm/Sodium Chloride 100 ml @ 200 mls/hr 1X PERIOP IV Last administered on 09/17/16 08:50; Start 09/17/16 at 06:00; Stop 09/17/16 at 16:40 ; Status DC Cefoxitin Sodium 100 ml @ As Directed STK-MED ONCE IV ; Start 09/17/16 at 06:52 ; Stop 09/17/16 at 06:53; Status DC Bupivacaine HCl/ Epinephrine Bitart (Marcaine-Epi 0.5%-[id number]) 50 ml STK-MED ONCE .ROUTE Last administered on 09/17/16 08:24; Start 09/17/16 at 07:24; Stop 09/17/16 at 07:25; Status DC Fentanyl Citrate (Fentanyl 5ml Vial) 250 mcg STK-MED ONCE .ROUTE ; Start at 07:41; Stop 09/17/16 at 07:42; Status DC Rocuronium [place] (Zemuron) 50 mg STK-MED ONCE .ROUTE ; Start 09/17/16 at 07:42 ; Stop 09/17/16 at 07:43; Status DC Desflurane (Suprane) 90 ml STK-MED ONCE IH ; Start 09/17/16 at 07:42; Stop 09/17 at 07:43; Status DC Dexamethasone Sodium Phosphate (Decadron) 20 mg STK-MED ONCE .ROUTE ; Start at 07:42; Stop 09/17/16 at 07:43; Status DC Propofol 20 ml @ As Directed STK-MED ONCE IV ; Start 09/17/16 at 07:42; Stop at 07:43; Status DC Lidocaine HCl (Lidocaine Pf 2% Vial) 5 ml STK-MED ONCE .ROUTE ; Start 09/17/16 at 07:42; Stop 09/17/16 at 07:43; Status DC Ondansetron HCl (Zofran) 4 mg STK-MED ONCE .ROUTE ; Start 09/17/16 at 07:42; Stop 09/17/16 at 07:43; Status DC Phenylephrine HCl 1 mg STK-MED ONCE IV ; Start 09/17/16 at 07:45; Stop 09/17/16 at 07:46; Status DC Fentanyl Citrate (Fentanyl 2ml Vial) 50 mcg PACU PRN PRN IV PAIN Last administered on 09/17/16t 07:52; Start 09/17/16 at 07:30; Stop 09/17/16 at 16:39 ; Status DC Labetalol HCl (Normodyne) 20 mg STK-MED ONCE .ROUTE ; Start 09/17/16 at 08:42; Stop 09/17/16 at 08:43; Status DC Rocuronium [place] (Zemuron) 50 mg STK-MED ONCE .ROUTE ; Start 09/17/16 at 09:11 ; Stop 09/17/16 at 09:12; Status DC Insulin Human Regular (NovoLIN R VIAL) 100 unit STK-MED ONCE .ROUTE ; Start at 09:21; Stop 09/17/16 at 09:22; Status DC Glycopyrrolate (Robinul) 1 mg STK-MED ONCE .ROUTE ; Start 09/17/16 at 09:34; Stop 09/17/16 at 09:35; Status DC Neostigmine Methylsulfate 5 mg STK-MED ONCE .ROUTE ; Start 09/17/16 at 09:35; Stop 09/17/16 at 09:36; Status DC Enoxaparin Sodium (Lovenox 40mg Syringe) 40 mg Q24H SQ ; Start 09/17/16 at 10:45 ; Stop 09/17/16 at 11:33; Status DC Sodium Chloride (Normal Saline Flush) 3 ml QSHIFT PRN IV AFTER MEDS AND BLOOD DRAWS; Start 09/17/16 at 10:45 Ringer's Solution 1,000 ml @ 100 mls/hr Q10H IV ; Start 09/17/16 at 10:35 Naloxone HCl (Narcan) 0.4 mg PRN Q2MIN PRN IV SEE INSTRUCTIONS; Start 09/17/16 at 10:45 Sodium Chloride 1,000 ml @ 25 mls/hr Q24H IV ; Start 09/17/16 at 10:35 Hydromorphone HCl 30 ml @ 0 mls/hr CONT PRN PRN IV PROTOCOL Last administered on 09/18/16t 03:10; Start 09/17/16 at 10:45 Ondansetron HCl (Zofran) 4 mg PRN Q6HRS PRN IV NAUESA, 1ST CHOICE; Start at 10:45 Enoxaparin Sodium (Lovenox 40mg Syringe) 40 mg Q24H SQ ; Start 09/17/16 at 22:00 Hydralazine HCl (Apresoline) 10 mg PRN Q6HRS PRN IVP ELEVATED BP, SEE COMMENTS ; Start 09/17/16 at 21:00 Metoprolol Tartrate (Lopressor) 10 mg Q6HRS IVP ; Start 09/18/16 at 13:15 Active Scripts Active Metoprolol Tartrate 50 Mg Tablet 75 Mg PO BID 30 Days Feosol (Ferrous Sulfate) 325 Mg Tablet 325 Mg PO DAILYWBKFT 30 Days Reported Glimepiride 2 Mg Tablet 1 Tab PO DAILY08 Glimepiride 1 Mg Tablet 1 Tab PO DAILYBFRSUP Pravastatin Sodium 80 Mg Tablet 1 Tab PO QHS Metformin Hcl 500 Mg Tablet 1 Tab PO BID Lisinopril 40 Mg Tablet 1 Tab PO DAILY Triamterene-Hctz 75-50 Mg Tab (Triamterene/Hydrochlorothiazid) 1 Each Tablet 1 Tab PO DAILY Diltiazem 24HR Cd (Diltiazem Hcl) 240 Mg Cap.er.24h 240 Mg PO DAILY Talmo 5-325 Tablet (Acetaminophen/Hydrocodone Bitart) 1 Each Tablet 1 Tab PO PRN Q6HRS PRN Vitals/I & O Vital Sign - Last 24 Hours 09/17/16 09/17/16 09/17/16 09/17/16 13:30 14:00 15:00 16:00 Temp 98.3 98.3 Pulse 86 82 85 95 Resp 20 20 20 20 B/P (MAP) 162/78 (106) 162/75 (104) 168/82 (110) 151/78 (102) Pulse Ox 97 100 100 95 O2 Delivery Nasal Cannula Nasal Cannula Nasal Cannula Nasal Cannula O2 Flow Rate 2.0 2.0 2.0 2.0 09/17/16 09/17/16 09/17/16 09/17/16 19:00 19:55 21:08 23:00 Temp 97.7 98.1 97.7 98.1 Pulse 113 113 95 Resp 18 18 B/P (MAP) 149/82 (104) 149/82 157/92 (113) Pulse Ox 98 93 O2 Delivery Nasal Cannula Nasal Cannula Nasal Cannula O2 Flow Rate 2.0 2.0 2.0 09/18/16 09/18/16 09/18/16 09/18/16 00:00 03:00 03:10 03:42 Temp 98.7 98.7 Pulse 85 Resp 13 18 12 15 B/P (MAP) 154/71 (98) Pulse Ox 93 94 93 93 O2 Delivery Nasal Cannula Nasal Cannula Nasal Cannula Nasal Cannula O2 Flow Rate 2.0 2.0 2.0 2.0 09/18/16 09/18/16 09/18/16 09/18/16 04:00 07:00 08:20 10:48 Temp 97.9 97.5 97.9 97.5 Pulse 90 93 Resp 14 18 20 B/P (MAP) 147/77 (100) 151/69 (96) Pulse Ox 94 98 97 O2 Delivery Nasal Cannula Nasal Cannula Nasal Cannula Nasal Cannula O2 Flow Rate 2.0 2.0 2.0 2.0 Intake and Output 09/17/16 09/17/16 09/18/16 15:00 23:00 07:00 Intake Total 1850 ml 1747.75 ml Output Total 375 ml 400 ml 170 ml Balance 1475 ml -400 ml 1577.75 ml ELEUTERIO MOSER MD Sep 18, 2016 13:11
[2016-09-18 14:23] VITALS: BP 154/57
--- NOTE | 2016-09-18 14:35 | PDOC ---
SURGICAL PROGRESS NOTE Subjective Pt without c/o, sitting up in chair, min light headed when moving, no N/v, pain controlled Vital Signs Vital Signs Date Time Temp Pulse Resp B/P (MAP) Pulse Ox O2 Delivery O2 Flow Rate FiO2 09/18/16 14:23 97.7 91 17 154/57 (89) 98 Nasal Cannula 2.0 97.7 I&O Intake and Output 09/18/16 07:00 Intake Total 3597.75 ml Output Total 945 ml Balance 2652.75 ml Intake Oral 0 ml IV Total 3597.75 ml Output Urine Total 870 ml Drainage Total 0 ml Estimated Blood Loss 75 ml PATIENT HAS A GRANDE: Yes (d/c in AM) General: Alert, Oriented X3, Cooperative, No acute distress Abdomen: Soft Labs Laboratory Tests Test 09/16/16 16:10 09/16/16 20:53 09/17/16 04:34 09/17/16 07:18 Glucose (Fingerstick) 102 mg/dL (70-99) 165 mg/dL (70-99) 153 mg/dL (70-99) Nasal Screen MRSA (PCR) Negative (Negative) Test 09/17/16 09:19 09/17/16 10:55 09/17/16 17:17 09/17/16 20:38 Glucose (Fingerstick) 200 mg/dL (70-99) 209 mg/dL (70-99) 208 mg/dL (70-99) 219 mg/dL (70-99) Test 09/18/16 04:00 09/18/16 07:03 09/18/16 11:35 White Blood Count 14.4 x10^3/uL (4.0-11.0) Red Blood Count 2.77 x10^6/uL (3.50-5.40) Hemoglobin 8.5 g/dL (12.0-15.5) Hematocrit 25.0 % (36.0-47.0) Mean Corpuscular Volume 90 fL (79-100) Mean Corpuscular Hemoglobin 31 pg (25-35) Mean Corpuscular Hemoglobin Concent 34 g/dL (31-37) Red Cell Distribution Width 15.2 % (11.5-14.5) Platelet Count 322 x10^3/uL (140-400) Neutrophils (%) (Auto) 85 % (31-73) Lymphocytes (%) (Auto) 6 % (24-48) Monocytes (%) (Auto) 9 % (0-9) Eosinophils (%) (Auto) 0 % (0-3) Basophils (%) (Auto) 0 % (0-3) Neutrophils # (Auto) 12.3 x10^3uL (1.8-7.7) Lymphocytes # (Auto) 0.8 x10^3/uL (1.0-4.8) Monocytes # (Auto) 1.3 x10^3/uL (0.0-1.1) Eosinophils # (Auto) 0.0 x10^3/uL (0.0-0.7) Basophils # (Auto) 0.0 x10^3/uL (0.0-0.2) Segmented Neutrophils % 76 % (35-66) Band Neutrophils % 9 % (0-9) Lymphocytes % 8 % (24-48) Monocytes % 7 % (0-10) Platelet Estimate Adequate (ADEQUATE) Sodium Level 140 mmol/L (136-145) Potassium Level 4.2 mmol/L (3.5-5.1) Chloride Level 104 mmol/L (98-107) Carbon Dioxide Level 28 mmol/L (21-32) Anion Gap 8 (6-14) Blood Urea Nitrogen 13 mg/dL (7-20) Creatinine 1.6 mg/dL (0.6-1.0) Estimated GFR (Cockcroft-Gault) 37.3 Glucose Level 172 mg/dL (70-99) Calcium Level 7.9 mg/dL (8.5-10.1) Glucose (Fingerstick) 156 mg/dL (70-99) 159 mg/dL (70-99) Laboratory Tests Test 09/17/16 17:17 09/17/16 20:38 09/18/16 04:00 09/18/16 07:03 Glucose (Fingerstick) 208 mg/dL (70-99) 219 mg/dL (70-99) 156 mg/dL (70-99) White Blood Count 14.4 x10^3/uL (4.0-11.0) Red Blood Count 2.77 x10^6/uL (3.50-5.40) Hemoglobin 8.5 g/dL (12.0-15.5) Hematocrit 25.0 % (36.0-47.0) Mean Corpuscular Volume 90 fL (79-100) Mean Corpuscular Hemoglobin 31 pg (25-35) Mean Corpuscular Hemoglobin Concent 34 g/dL (31-37) Red Cell Distribution Width 15.2 % (11.5-14.5) Platelet Count 322 x10^3/uL (140-400) Neutrophils (%) (Auto) 85 % (31-73) Lymphocytes (%) (Auto) 6 % (24-48) Monocytes (%) (Auto) 9 % (0-9) Eosinophils (%) (Auto) 0 % (0-3) Basophils (%) (Auto) 0 % (0-3) Neutrophils # (Auto) 12.3 x10^3uL (1.8-7.7) Lymphocytes # (Auto) 0.8 x10^3/uL (1.0-4.8) Monocytes # (Auto) 1.3 x10^3/uL (0.0-1.1) Eosinophils # (Auto) 0.0 x10^3/uL (0.0-0.7) Basophils # (Auto) 0.0 x10^3/uL (0.0-0.2) Segmented Neutrophils % 76 % (35-66) Band Neutrophils % 9 % (0-9) Lymphocytes % 8 % (24-48) Monocytes % 7 % (0-10) Platelet Estimate Adequate (ADEQUATE) Sodium Level 140 mmol/L (136-145) Potassium Level 4.2 mmol/L (3.5-5.1) Chloride Level 104 mmol/L (98-107) Carbon Dioxide Level 28 mmol/L (21-32) Anion Gap 8 (6-14) Blood Urea Nitrogen 13 mg/dL (7-20) Creatinine 1.6 mg/dL (0.6-1.0) Estimated GFR (Cockcroft-Gault) 37.3 Glucose Level 172 mg/dL (70-99) Calcium Level 7.9 mg/dL (8.5-10.1) Test 09/18/16 11:35 Glucose (Fingerstick) 159 mg/dL (70-99) Problem List Problems Medical Problems: (1) Lower GI bleed Status: Acute Assessment/Plan s/p lap left colon await bowel fxn Problems: ALBERT PATRICIA MD 18, 2017 14:35
[2016-09-18] MEDS: METOPROLOL TARTRATE 5 MG/5 ML VIAL. IVP SCH ×3 (17:09→23:17)
[2016-09-18 19:00] VITALS: BP 201/83
[2016-09-18] MEDS ORDERED: hydrALAZINE 20 MG/ML VIAL. IVP PRN (20:15)
[2016-09-18 22:06] VITALS: BP 191/83
[2016-09-18] MEDS: ENOXAPARIN 40 MG/0.4 ML SYRINGE. SQ SCH (22:30)
[2016-09-19] VITALS (7 sets, daily range): BP systolic 149–178; BP diastolic 49–92
[2016-09-19] MEDS: hydrALAZINE 20 MG/ML VIAL. IVP PRN ×2 (01:16→09:15)
[2016-09-19] MEDS: IV RINGERS,LACTATED 1000ML 1,000 ML IV SCH ×3 (02:47→22:35)
[2016-09-19] MEDS ORDERED: ACETAMINOPHEN 650 MG SUPP.RECT. PR PRN (04:15)
[2016-09-19] MEDS: METOPROLOL TARTRATE 5 MG/5 ML VIAL. IVP SCH ×2 (06:41→12:54)
[2016-09-19] MEDS: FERROUS SULFATE 325 MG TABLET. PO SCH (08:00)
[2016-09-19] MEDS: INSULIN ASPART 300 UNITS/3 ML INSULN.PEN SQ SCH ×3 (08:00→17:59)
[2016-09-19] MEDS: LISINOPRIL 40 MG TABLET. PO SCH (09:00)
[2016-09-19] MEDS: TRIAMTERENE/HCTZ 75/50MG TABLET. PO SCH (09:00)
[2016-09-19] MEDS: FAMOTIDINE 20 MG/2 ML VIAL IVP SCH (09:12)
[2016-09-19] MEDS: fentaNYL PF VIAL 100 MCG/2 ML VIAL IV PRN ×2 (09:13→12:52)
[2016-09-19] MEDS: IV 1/2 NORMAL SALINE 1,000 ML IV SCH ×2 (10:00→20:00)
[2016-09-19] MEDS: IV NORMAL SALINE 1000ML BAG 1,000 ML IV SCH (10:35)
--- NOTE | 2016-09-19 10:42 | PDOC ---
SURGICAL PROGRESS NOTE Subjective Pt reports feeling well today, no n/V, pain controlled, no flatus Vital Signs Vital Signs Date Time Temp Pulse Resp B/P (MAP) Pulse Ox O2 Delivery O2 Flow Rate FiO2 09/19/16 09:55 90 Nasal Cannula 2.0 09/19/16 09:15 94 178/92 09/19/16 03:09 100.2 20 100.2 I&O Intake and Output 09/19/16 07:00 Intake Total 1995.82 ml Output Total 2150 ml Balance -154.18 ml Intake Oral 50 ml IV Total 1945.82 ml Output Urine Total 2150 ml General: Alert, Oriented X3, Cooperative, No acute distress Abdomen: Soft, No tenderness Labs Laboratory Tests Test 09/17/16 10:55 09/17/16 17:17 09/17/16 20:38 09/18/16 04:00 Glucose (Fingerstick) 209 mg/dL (70-99) 208 mg/dL (70-99) 219 mg/dL (70-99) White Blood Count 14.4 x10^3/uL (4.0-11.0) Red Blood Count 2.77 x10^6/uL (3.50-5.40) Hemoglobin 8.5 g/dL (12.0-15.5) Hematocrit 25.0 % (36.0-47.0) Mean Corpuscular Volume 90 fL (79-100) Mean Corpuscular Hemoglobin 31 pg (25-35) Mean Corpuscular Hemoglobin Concent 34 g/dL (31-37) Red Cell Distribution Width 15.2 % (11.5-14.5) Platelet Count 322 x10^3/uL (140-400) Neutrophils (%) (Auto) 85 % (31-73) Lymphocytes (%) (Auto) 6 % (24-48) Monocytes (%) (Auto) 9 % (0-9) Eosinophils (%) (Auto) 0 % (0-3) Basophils (%) (Auto) 0 % (0-3) Neutrophils # (Auto) 12.3 x10^3uL (1.8-7.7) Lymphocytes # (Auto) 0.8 x10^3/uL (1.0-4.8) Monocytes # (Auto) 1.3 x10^3/uL (0.0-1.1) Eosinophils # (Auto) 0.0 x10^3/uL (0.0-0.7) Basophils # (Auto) 0.0 x10^3/uL (0.0-0.2) Segmented Neutrophils % 76 % (35-66) Band Neutrophils % 9 % (0-9) Lymphocytes % 8 % (24-48) Monocytes % 7 % (0-10) Platelet Estimate Adequate (ADEQUATE) Sodium Level 140 mmol/L (136-145) Potassium Level 4.2 mmol/L (3.5-5.1) Chloride Level 104 mmol/L (98-107) Carbon Dioxide Level 28 mmol/L (21-32) Anion Gap 8 (6-14) Blood Urea Nitrogen 13 mg/dL (7-20) Creatinine 1.6 mg/dL (0.6-1.0) Estimated GFR (Cockcroft-Gault) 37.3 Glucose Level 172 mg/dL (70-99) Calcium Level 7.9 mg/dL (8.5-10.1) Test 09/18/16 07:03 09/18/16 11:35 09/18/16 16:11 09/18/16 20:44 Glucose (Fingerstick) 156 mg/dL (70-99) 159 mg/dL (70-99) 134 mg/dL (70-99) 182 mg/dL (70-99) Laboratory Tests Test 09/18/16 11:35 09/18/16 16:11 09/18/16 20:44 Glucose (Fingerstick) 159 mg/dL (70-99) 134 mg/dL (70-99) 182 mg/dL (70-99) Problem List Problems Medical Problems: (1) Lower GI bleed Status: Acute Assessment/Plan s/p colectomy try clears Problems: ALBERT PATRICIA MD Sep 19, 2016 10:42
--- NOTE | 2016-09-19 12:35 | PDOC ---
Subjective: Subjective: Passing some gas, pain managed. Objective: Objective: Orders for clears. Vital Signs: Vital Signs Date Time Temp Pulse Resp B/P (MAP) Pulse Ox O2 Delivery O2 Flow Rate FiO2 09/19/16 10:50 98.1 104 20 165/70 (101) 95 Nasal Cannula 2.0 98.1 Labs: Laboratory Tests Test 09/18/16 16:11 09/18/16 20:44 09/19/16 06:59 Glucose (Fingerstick) 134 mg/dL (70-99) 182 mg/dL (70-99) 159 mg/dL (70-99) PE: GEN: NAD, up to chair, less animated today ABD: pillow covering NEURO/PSYCH: A & O 3 A/P: Recurrent GI bleeding S/p left colon resection and takedown of splenic flexure 09/17/16 Liver nodules -- Plans to try clears, will follow. Will change IV H2 curtis to PO PPI. PAGE SCHOFIELD Sep 19, 2016 12:35
--- NOTE | 2016-09-19 17:06 | PDOC ---
PROGRESS NOTES Subjective Subjective Patient without new complaints. Patient now on clear liquids. Patient still has not passed gas. But positive bowel sounds have been noted. Patient having good pain control and ambulating short distances. Objective Objective Vital Signs Date Time Temp Pulse Resp B/P (MAP) Pulse Ox O2 Delivery O2 Flow Rate FiO2 09/19/16 14:49 97.7 104 20 160/65 (96) 95 Nasal Cannula 2.0 97.7 Intake and Output 09/19/16 07:00 Intake Total 1995.82 ml Output Total 2150 ml Balance -154.18 ml Intake Oral 50 ml IV Total 1945.82 ml Output Urine Total 2150 ml Physical Exam Abdomen: No tenderness, Other (positive bowel sounds) Heart: Regular rate Extremities: No edema General: Alert Lungs: Clear to auscultation Assessment Assessment Problems Medical Problems: (1) Lower GI bleed Status: Acute Lower GI bleed with anemia. S/p left colon resection and takedown of splenic flexure 09/17/16 HTN - controlled with home meds DM2 - stable, continue SS insulin when needed. prerenal azotemia - much better, continue IVF when NPO and clears when allowed. Liver nodules Reflux Adenomatous colon polyp Plan Plan of Care Start by mouth medications. Proceed with PT and OT modalities Advance diet per surgery recommendations Comment Review of Relevant I have reviewed the following items veronique (where applicable) has been applied. Labs Laboratory Tests Test 09/17/16 17:17 09/17/16 20:38 09/18/16 04:00 09/18/16 07:03 Glucose (Fingerstick) 208 mg/dL (70-99) 219 mg/dL (70-99) 156 mg/dL (70-99) White Blood Count 14.4 x10^3/uL (4.0-11.0) Red Blood Count 2.77 x10^6/uL (3.50-5.40) Hemoglobin 8.5 g/dL (12.0-15.5) Hematocrit 25.0 % (36.0-47.0) Mean Corpuscular Volume 90 fL (79-100) Mean Corpuscular Hemoglobin 31 pg (25-35) Mean Corpuscular Hemoglobin Concent 34 g/dL (31-37) Red Cell Distribution Width 15.2 % (11.5-14.5) Platelet Count 322 x10^3/uL (140-400) Neutrophils (%) (Auto) 85 % (31-73) Lymphocytes (%) (Auto) 6 % (24-48) Monocytes (%) (Auto) 9 % (0-9) Eosinophils (%) (Auto) 0 % (0-3) Basophils (%) (Auto) 0 % (0-3) Neutrophils # (Auto) 12.3 x10^3uL (1.8-7.7) Lymphocytes # (Auto) 0.8 x10^3/uL (1.0-4.8) Monocytes # (Auto) 1.3 x10^3/uL (0.0-1.1) Eosinophils # (Auto) 0.0 x10^3/uL (0.0-0.7) Basophils # (Auto) 0.0 x10^3/uL (0.0-0.2) Segmented Neutrophils % 76 % (35-66) Band Neutrophils % 9 % (0-9) Lymphocytes % 8 % (24-48) Monocytes % 7 % (0-10) Platelet Estimate Adequate (ADEQUATE) Sodium Level 140 mmol/L (136-145) Potassium Level 4.2 mmol/L (3.5-5.1) Chloride Level 104 mmol/L (98-107) Carbon Dioxide Level 28 mmol/L (21-32) Anion Gap 8 (6-14) Blood Urea Nitrogen 13 mg/dL (7-20) Creatinine 1.6 mg/dL (0.6-1.0) Estimated GFR (Cockcroft-Gault) 37.3 Glucose Level 172 mg/dL (70-99) Calcium Level 7.9 mg/dL (8.5-10.1) Test 09/18/16 11:35 09/18/16 16:11 09/18/16 20:44 09/19/16 06:59 Glucose (Fingerstick) 159 mg/dL (70-99) 134 mg/dL (70-99) 182 mg/dL (70-99) 159 mg/dL (70-99) Test 09/19/16 10:36 09/19/16 16:05 Glucose (Fingerstick) 159 mg/dL (70-99) 227 mg/dL (70-99) Laboratory Tests Test 09/18/16 20:44 09/19/16 06:59 09/19/16 10:36 09/19/16 16:05 Glucose (Fingerstick) 182 mg/dL (70-99) 159 mg/dL (70-99) 159 mg/dL (70-99) 227 mg/dL (70-99) Microbiology 09/10/16 Urine Culture - Final, Complete 09/10/16 Urine Culture Result 1 (INGE) - Final, Complete Medications Current Medications Fentanyl Citrate (Fentanyl 2ml Vial) 25 mcg PRN Q15MIN PRN IV PAIN GREATER THAN 3/10 Last administered on 09/10/16 11:15; Start 09/10/16 at 10:00; Stop at 09:59; Status DC Ondansetron HCl (Zofran) 4 mg PRN Q8HRS PRN IV NAUSEA/VOMITING; Start 09/10/16 at 11:30; Stop 09/11/16 at 11:29; Status DC Fentanyl Citrate (Fentanyl 2ml Vial) 50 mcg PRN Q1HR PRN IV PAIN Last administered on 09/11/16 07:40; Start 09/10/16 at 11:30; Stop 09/11/16 at 11:29 ; Status DC Sodium Chloride 1,000 ml @ 125 mls/hr Q8H IV Last administered on 09/10/16 14 :30; Start 09/10/16 at 11:16; Stop 09/11/16 at 11:15; Status DC Sodium Chloride 500 ml @ 500 mls/hr 1X ONCE IV Last administered on 11:35; Start 09/10/16 at 11:30; Stop 09/10/16 at 12:29; Status DC Iohexol (Omnipaque 350 Mg/ml) 90 ml 1X ONCE IV Last administered on 09/10/16 14:00; Start 09/10/16 at 13:30; Stop 09/10/16 at 13:35; Status DC Famotidine (Pepcid) 20 mg DAILY IVP Last administered on 09/19/16 09:12; Start 09/10/16 at 14:00; Stop 09/19/16 at 12:36; Status DC Diphenhydramine HCl (Benadryl) 25 mg PRN Q6HRS PRN IVP ITCHING Last administered on 09/10/16 17:36; Start 09/10/16 at 17:30 Iohexol (Omnipaque 300 Mg/ml) 100 ml STK-MED ONCE .ROUTE ; Start 09/11/16 at 08: 11; Stop 09/11/16 at 08:12; Status DC Lidocaine/Sodium Bicarbonate (Buffered Lidocaine 1%) 20 ml STK-MED ONCE IJ ; Start 09/11/16 at 08:12; Stop 09/11/16 at 08:13; Status DC Heparin Sodium/ Sodium Chloride 1,500 ml @ As Directed STK-MED ONCE .ROUTE ; Start 09/11/16 at 08:12; Stop 09/11/16 at 08:13; Status DC Midazolam HCl (Versed) 2 mg STK-MED ONCE .ROUTE ; Start 09/11/16 at 08:29; Stop 09/11/16 at 08:30; Status DC Ondansetron HCl (Zofran) 4 mg PRN Q6HRS PRN IV NAUSEA/VOMITING; Start 09/11/16 at 09:00; Stop 09/12/16 at 08:59; Status DC Fentanyl Citrate (Fentanyl 2ml Vial) 25 mcg PRN Q5MIN PRN IV MILD PAIN; Start 09/11/16 at 09:00; Stop 09/12/16 at 08:59; Status DC Fentanyl Citrate (Fentanyl 2ml Vial) 50 mcg PRN Q5MIN PRN IV MODERATE PAIN; Start 09/11/16 at 09:00; Stop 09/12/16 at 08:59; Status DC Ringer's Solution 1,000 ml @ 30 mls/hr Q24H IV ; Start 09/11/16 at 08:46; Stop 09/11/16 at 20:45; Status DC Lidocaine HCl 2 ml PRN 1X PRN ID PRIOR TO IV START; Start 09/11/16 at 09:00; Stop 09/12/16 at 08:59; Status DC Prochlorperazine Edisylate (Compazine) 5 mg PACU PRN PRN IV NAUSEA, MRX1; Start 09/11/16 at 09:00; Stop 09/12/16 at 08:59; Status DC Heparin Sodium/ Sodium Chloride 1,000 unit 1X ONCE IART Last administered on t 09:26; Start 09/11/16 at 09:15; Stop 09/11/16 at 09:16; Status DC Lidocaine/Sodium Bicarbonate (Buffered Lidocaine 1%) 20 ml 1X ONCE IJ Last administered on 09/11/16 09:28; Start 09/11/16 at 09:15; Stop 09/11/16 at 09:16 ; Status DC Midazolam HCl (Versed) 2 mg 1X ONCE IV Last administered on 09/11/16 09:28; Start 09/11/16 at 09:15; Stop 09/11/16 at 09:16; Status DC Fentanyl Citrate (Fentanyl 2ml Vial) 100 mcg 1X ONCE IV Last administered on 09:28; Start 09/11/16 at 09:15; Stop 09/11/16 at 09:16; Status DC Iohexol (Omnipaque 300 Mg/ml) 100 ml 1X ONCE IART Last administered on 09:28; Start 09/11/16 at 09:15; Stop 09/11/16 at 09:16; Status DC Diltiazem HCl (Cardizem 24hr Cd) 240 mg DAILY PO Last administered on 07:57; Start 09/11/16 at 17:00 Ferrous Sulfate (Feosol) 325 mg DAILYWBKFT PO Last administered on 09/16/16 07 :56; Start 09/12/16 at 08:00 Acetaminophen/ Hydrocodone Bitart (Lortab 5/325) 1 tab PRN Q6HRS PRN PO PAIN Last administered on 09/16/16 16:53; Start 09/11/16 at 16:30 Lisinopril (Prinivil) 40 mg DAILY PO Last administered on 09/16/16 07:56; Start 09/11/16 at 17:00 Metoprolol Tartrate (Lopressor) 75 mg BID PO Last administered on 09/17/16 07: 45; Start 09/11/16 at 21:00; Stop 09/18/16 at 13:02; Status DC Triamterene/HCTZ (Maxzide 75/50mg) 1 tab DAILY PO Last administered on 07:56; Start 09/11/16 at 17:00 Insulin Aspart (NovoLOG) 0-5 UNITS TIDWMEALS SQ Last administered on 09/19/16 13:08; Start 09/12/16 at 12:00 Dextrose (Dextrose 50%-Water Syringe) 12.5 gm PRN Q15MIN PRN IV SEE COMMENTS; Start 09/12/16 at 08:45 Sodium Chloride 1,000 ml @ 100 mls/hr Q10H IV Last administered on 09/13/16 07:58; Start 09/12/16 at 08:45; Stop 09/13/16 at 13:44; Status DC Alteplase, Recombinant (Cathflo) 2 mg 1X ONCE INT CAT Last administered on 11:50; Start 09/12/16 at 11:45; Stop 09/12/16 at 11:46; Status DC Sodium Cl/Sod Bicarb/Potass Cl/ PEG (Golytely) 4,000 ml 1X ONCE PO Last administered on 09/13/16 16:33; Start 09/13/16 at 15:00; Stop 09/13/16 at 15:01 ; Status DC Sodium Chloride 1,000 ml @ 100 mls/hr Q10H IV Last administered on 09/18/16 23:17; Start 09/13/16 at 14:00 Fentanyl Citrate (Fentanyl 2ml Vial) 50 mcg PRN Q4HRS PRN IV PAIN Last administered on 09/19/16 12:52; Start 09/13/16 at 13:45 Fentanyl Citrate (Fentanyl 2ml Vial) 25 mcg PRN Q4HRS PRN IV PAIN Last administered on 09/13/16 21:55; Start 09/13/16 at 13:45 Ondansetron HCl (Zofran) 4 mg PRN Q6HRS PRN IV NAUSEA/VOMITING; Start 09/14/16 at 07:00; Stop 09/15/16 at 07:00; Status DC Fentanyl Citrate (Fentanyl 2ml Vial) 25 mcg PRN Q5MIN PRN IV MILD PAIN; Start 09/14/16 at 07:00; Stop 09/15/16 at 07:00; Status DC Fentanyl Citrate (Fentanyl 2ml Vial) 50 mcg PRN Q5MIN PRN IV MODERATE PAIN; Start 09/14/16 at 07:00; Stop 09/15/16 at 07:00; Status DC Ringer's Solution 1,000 ml @ 30 mls/hr Q24H IV ; Start 09/14/16 at 07:00; Stop 09/14/16 at 18:59; Status DC Lidocaine HCl 2 ml PRN 1X PRN ID PRIOR TO IV START; Start 09/14/16 at 07:00; Stop 09/15/16 at 07:00; Status DC Prochlorperazine Edisylate (Compazine) 5 mg PACU PRN PRN IV NAUSEA, MRX1; Start 09/14/16 at 07:00; Stop 09/15/16 at 07:00; Status DC Midazolam HCl (Versed) 2 mg PRN 1X PRN IV PRIOR TO PROCEDURE; Start 09/14/16 at 10:00; Stop 09/15/16 at 09:59; Status DC Fentanyl Citrate (Fentanyl 2ml Vial) 25 mcg PRN Q5MIN PRN IV X 2 DOSES FOR PAIN ; Start 09/14/16 at 10:00; Stop 09/15/16 at 09:59; Status DC Fentanyl Citrate (Fentanyl 2ml Vial) 50 mcg PRN Q5MIN PRN IV X 2 DOSES FOR PAIN ; Start 09/14/16 at 10:00; Stop 09/15/16 at 09:59; Status DC Lidocaine HCl 2 ml 1X PRN PRN ID IV START; Start 09/14/16 at 10:00; Stop at 09:59; Status DC Propofol 20 ml @ As Directed STK-MED ONCE IV ; Start 09/14/16 at 10:38; Stop at 10:39; Status DC Lidocaine HCl (Lidocaine Pf 2% Vial) 5 ml STK-MED ONCE .ROUTE ; Start 09/14/16 at 10:38; Stop 09/14/16 at 10:39; Status DC Ondansetron HCl (Zofran) 4 mg PRN Q6HRS PRN IV NAUSEA/VOMITING; Start 09/17/16 at 07:00; Stop 09/17/16 at 16:39; Status DC Fentanyl Citrate (Fentanyl 2ml Vial) 25 mcg PRN Q5MIN PRN IV MILD PAIN; Start 09/17/16 at 07:00; Stop 09/17/16 at 16:39; Status DC Fentanyl Citrate (Fentanyl 2ml Vial) 50 mcg PRN Q5MIN PRN IV MODERATE PAIN Last administered on 09/17/16t 11:30; Start 09/17/16 at 07:00; Stop 09/17/16 at 16:39; Status DC Ringer's Solution 1,000 ml @ 30 mls/hr Q24H IV Last administered on 09/17/16 07:00; Start 09/17/16 at 07:00; Stop 09/17/16 at 16:39; Status DC Lidocaine HCl 2 ml PRN 1X PRN ID PRIOR TO IV START; Start 09/17/16 at 07:00; Stop 09/17/16 at 16:39; Status DC Prochlorperazine Edisylate (Compazine) 5 mg PACU PRN PRN IV NAUSEA, MRX1; Start 09/17/16 at 07:00; Stop 09/17/16 at 16:39; Status DC Cefoxitin Sodium 2 gm/Sodium Chloride 100 ml @ 200 mls/hr 1X PERIOP IV Last administered on 09/17/16 08:50; Start 09/17/16 at 06:00; Stop 09/17/16 at 16:40 ; Status DC Cefoxitin Sodium 100 ml @ As Directed STK-MED ONCE IV ; Start 09/17/16 at 06:52 ; Stop 09/17/16 at 06:53; Status DC Bupivacaine HCl/ Epinephrine Bitart (Marcaine-Epi 0.5%-[id number]) 50 ml STK-MED ONCE .ROUTE Last administered on 09/17/16 08:24; Start 09/17/16 at 07:24; Stop 09/17/16 at 07:25; Status DC Fentanyl Citrate (Fentanyl 5ml Vial) 250 mcg STK-MED ONCE .ROUTE ; Start at 07:41; Stop 09/17/16 at 07:42; Status DC Rocuronium Thiells (Zemuron) 50 mg STK-MED ONCE .ROUTE ; Start 09/17/16 at 07:42 ; Stop 09/17/16 at 07:43; Status DC Desflurane (Suprane) 90 ml STK-MED ONCE IH ; Start 09/17/16 at 07:42; Stop 09/17 at 07:43; Status DC Dexamethasone Sodium Phosphate (Decadron) 20 mg STK-MED ONCE .ROUTE ; Start at 07:42; Stop 09/17/16 at 07:43; Status DC Propofol 20 ml @ As Directed STK-MED ONCE IV ; Start 09/17/16 at 07:42; Stop at 07:43; Status DC Lidocaine HCl (Lidocaine Pf 2% Vial) 5 ml STK-MED ONCE .ROUTE ; Start 09/17/16 at 07:42; Stop 09/17/16 at 07:43; Status DC Ondansetron HCl (Zofran) 4 mg STK-MED ONCE .ROUTE ; Start 09/17/16 at 07:42; Stop 09/17/16 at 07:43; Status DC Phenylephrine HCl 1 mg STK-MED ONCE IV ; Start 09/17/16 at 07:45; Stop 09/17/16 at 07:46; Status DC Fentanyl Citrate (Fentanyl 2ml Vial) 50 mcg PACU PRN PRN IV PAIN Last administered on 09/17/16t 07:52; Start 09/17/16 at 07:30; Stop 09/17/16 at 16:39 ; Status DC Labetalol HCl (Normodyne) 20 mg STK-MED ONCE .ROUTE ; Start 09/17/16 at 08:42; Stop 09/17/16 at 08:43; Status DC Rocuronium Thiells (Zemuron) 50 mg STK-MED ONCE .ROUTE ; Start 09/17/16 at 09:11 ; Stop 09/17/16 at 09:12; Status DC Insulin Human Regular (NovoLIN R VIAL) 100 unit STK-MED ONCE .ROUTE ; Start at 09:21; Stop 09/17/16 at 09:22; Status DC Glycopyrrolate (Robinul) 1 mg STK-MED ONCE .ROUTE ; Start 09/17/16 at 09:34; Stop 09/17/16 at 09:35; Status DC Neostigmine Methylsulfate 5 mg STK-MED ONCE .ROUTE ; Start 09/17/16 at 09:35; Stop 09/17/16 at 09:36; Status DC Enoxaparin Sodium (Lovenox 40mg Syringe) 40 mg Q24H SQ ; Start 09/17/16 at 10:45 ; Stop 09/17/16 at 11:33; Status DC Sodium Chloride (Normal Saline Flush) 3 ml QSHIFT PRN IV AFTER MEDS AND BLOOD DRAWS; Start 09/17/16 at 10:45 Ringer's Solution 1,000 ml @ 100 mls/hr Q10H IV ; Start 09/17/16 at 10:35 Naloxone HCl (Narcan) 0.4 mg PRN Q2MIN PRN IV SEE INSTRUCTIONS; Start 09/17/16 at 10:45 Sodium Chloride 1,000 ml @ 25 mls/hr Q24H IV ; Start 09/17/16 at 10:35 Hydromorphone HCl 30 ml @ 0 mls/hr CONT PRN PRN IV PROTOCOL Last administered on 09/18/16 03:10; Start 09/17/16 at 10:45 Ondansetron HCl (Zofran) 4 mg PRN Q6HRS PRN IV NAUESA, 1ST CHOICE; Start at 10:45 Enoxaparin Sodium (Lovenox 40mg Syringe) 40 mg Q24H SQ Last administered on 22:30; Start 09/17/16 at 22:00 Hydralazine HCl (Apresoline) 10 mg PRN Q6HRS PRN IVP ELEVATED BP, SEE COMMENTS Last administered on 09/19/16 09:15; Start 09/17/16 at 21:00; Stop 09/19/16 at 14:24; Status DC Metoprolol Tartrate (Lopressor) 10 mg Q6HRS IVP Last administered on 09/19/16 12:54; Start 09/18/16 at 13:15 Hydralazine HCl (Apresoline) 10 mg PRN Q6HRS PRN IVP ELEVATED BP, SEE COMMENTS ; Start 09/18/16 at 20:15 Acetaminophen (Acetaminophen Supp) 650 mg PRN Q6HRS PRN MS MILD PAIN / TEMP; Start 09/19/16 at 04:15 Pantoprazole Sodium (Protonix) 40 mg DAILYAC PO ; Start 09/20/16 at 07:30 Active Scripts Active Metoprolol Tartrate 50 Mg Tablet 75 Mg PO BID 30 Days Feosol (Ferrous Sulfate) 325 Mg Tablet 325 Mg PO DAILYWBKFT 30 Days Reported Glimepiride 2 Mg Tablet 1 Tab PO DAILY08 Glimepiride 1 Mg Tablet 1 Tab PO DAILYBFRSUP Pravastatin Sodium 80 Mg Tablet 1 Tab PO QHS Metformin Hcl 500 Mg Tablet 1 Tab PO BID Lisinopril 40 Mg Tablet 1 Tab PO DAILY Triamterene-Hctz 75-50 Mg Tab (Triamterene/Hydrochlorothiazid) 1 Each Tablet 1 Tab PO DAILY Diltiazem 24HR Cd (Diltiazem Hcl) 240 Mg Cap.er.24h 240 Mg PO DAILY Ponce 5-325 Tablet (Acetaminophen/Hydrocodone Bitart) 1 Each Tablet 1 Tab PO PRN Q6HRS PRN Vitals/I & O Vital Sign - Last 24 Hours 09/18/16 09/18/16 09/18/16 09/18/16 17:09 18:00 19:00 20:20 Temp 99.7 99.7 Pulse 91 91 94 Resp 18 B/P (MAP) 154/57 154/57 201/83 (122) Pulse Ox 93 O2 Delivery Nasal Cannula Nasal Cannula O2 Flow Rate 2.0 2.0 09/18/16 09/18/16 09/19/16 09/19/16 22:06 23:17 01:16 03:09 Temp 99.7 100.2 99.7 100.2 Pulse 97 97 99 56 Resp 20 B/P (MAP) 191/83 (119) 191/83 180/87 166/49 (88) Pulse Ox 90 O2 Delivery Nasal Cannula O2 Flow Rate 2.0 09/19/16 09/19/16 09/19/16 09/19/16 06:05 06:24 06:41 07:45 Pulse 94 94 B/P (MAP) 178/92 (120) 178/92 (120) 178/92 O2 Delivery Room Air 09/19/16 09/19/16 09/19/16 09/19/16 09:00 09:00 09:13 09:15 Pulse 94 94 94 B/P (MAP) 178/92 178/92 178/92 Pulse Ox 90 O2 Delivery Nasal Cannula O2 Flow Rate 2.0 09/19/16 09/19/16 09/19/16 09/19/16 09:55 10:50 12:52 12:54 Temp 98.1 98.1 Pulse 104 104 Resp 20 B/P (MAP) 165/70 (101) 165/70 Pulse Ox 95 95 O2 Delivery Nasal Cannula Room Air O2 Flow Rate 2.0 2.0 09/19/16 09/19/16 13:30 14:49 Temp 97.7 97.7 Pulse 104 Resp 20 B/P (MAP) 160/65 (96) Pulse Ox 95 95 O2 Delivery Nasal Cannula Nasal Cannula O2 Flow Rate 2.0 Intake and Output 09/18/16 09/18/16 09/19/16 15:00 23:00 07:00 Intake Total 1995.82 ml Output Total 150 ml 2000 ml Balance -150 ml -4.18 ml ELEUTERIO MOSER MD Sep 19, 2016 17:06
[2016-09-19] MEDS: METOPROLOL TART IMMED RELEASE 25 MG TABLET. PO SCH (21:28)
[2016-09-19] MEDS: ENOXAPARIN 40 MG/0.4 ML SYRINGE. SQ SCH (21:29)
[2016-09-20] MEDS: fentaNYL PF VIAL 100 MCG/2 ML VIAL IV PRN ×2 (01:27→08:44)
[2016-09-20 02:49] VITALS: BP 165/79
[2016-09-20] MEDS: IV 1/2 NORMAL SALINE 1,000 ML IV SCH ×2 (05:40→16:00)
[2016-09-20 07:00] VITALS: BP_SYST 174; BP_SYST 181; BP_DIAS 70; BP_DIAS 76
[2016-09-20] MEDS: INSULIN ASPART 300 UNITS/3 ML INSULN.PEN SQ SCH ×3 (08:00→17:32)
[2016-09-20] MEDS: FERROUS SULFATE 325 MG TABLET. PO SCH (08:31)
[2016-09-20] MEDS: LISINOPRIL 40 MG TABLET. PO SCH (08:32)
[2016-09-20] MEDS: METOPROLOL TART IMMED RELEASE 25 MG TABLET. PO SCH ×2 (08:33→21:43)
[2016-09-20] MEDS: PANTOPRAZOLE 40 MG TABLET.DR. PO SCH (08:43)
[2016-09-20] MEDS: TRIAMTERENE/HCTZ 75/50MG TABLET. PO SCH (08:46)
[2016-09-20] MEDS: IV NORMAL SALINE 1000ML BAG 1,000 ML IV SCH (10:35)
[2016-09-20 11:00] VITALS: BP 167/76
--- NOTE | 2016-09-20 11:19 | PDOC ---
SURGICAL PROGRESS NOTE Subjective Pt with c/o mild pain, no n/V, passing stools Vital Signs Vital Signs Date Time Temp Pulse Resp B/P (MAP) Pulse Ox O2 Delivery O2 Flow Rate FiO2 09/20/16 11:00 98.8 81 18 167/76 (106) 98 Room Air 98.8 09/20/16 02:49 2.0 I&O Intake and Output 09/20/16 07:00 Intake Total 940 ml Balance 940 ml Intake Oral 940 ml # Voids 5 General: Alert, Oriented X3, Cooperative, No acute distress Abdomen: Soft, No tenderness Labs Laboratory Tests Test 09/18/16 11:35 09/18/16 16:11 09/18/16 20:44 09/19/16 06:59 Glucose (Fingerstick) 159 mg/dL (70-99) 134 mg/dL (70-99) 182 mg/dL (70-99) 159 mg/dL (70-99) Test 09/19/16 10:36 09/19/16 16:05 09/19/16 21:08 09/20/16 07:18 Glucose (Fingerstick) 159 mg/dL (70-99) 227 mg/dL (70-99) 176 mg/dL (70-99) 150 mg/dL (70-99) Test 09/20/16 10:33 Glucose (Fingerstick) 193 mg/dL (70-99) Laboratory Tests Test 09/19/16 16:05 09/19/16 21:08 09/20/16 07:18 09/20/16 10:33 Glucose (Fingerstick) 227 mg/dL (70-99) 176 mg/dL (70-99) 150 mg/dL (70-99) 193 mg/dL (70-99) Problem List Problems Medical Problems: (1) Lower GI bleed Status: Acute Assessment/Plan s/p left colon advance to soft diet cont supportive care Problems: ALBERT PATRICIA MD Sep 20, 2016 11:19
--- NOTE | 2016-09-20 11:37 | PDOC ---
Subjective: Subjective: Asks for more pain medication. On commode, stooling. Objective: Objective: Orders for GI soft diet. Has worked w/ PT. Vital Signs: Vital Signs Date Time Temp Pulse Resp B/P (MAP) Pulse Ox O2 Delivery O2 Flow Rate FiO2 09/20/16 11:00 98.8 81 18 167/76 (106) 98 Room Air 98.8 09/20/16 02:49 2.0 Labs: Laboratory Tests Test 09/19/16 16:05 09/19/16 21:08 09/20/16 07:18 09/20/16 10:33 Glucose (Fingerstick) 227 mg/dL 176 mg/dL 150 mg/dL 193 mg/dL PE: GEN: NAD, on commode NEURO/PSYCH: A & O 3 A/P: Recurrent GI bleeding S/p left colon resection and takedown of splenic flexure 09/17/16, abd pain Liver nodules, path pending -- Plans to advance diet/activity. PAGE SCHOFIELD Sep 20, 2016 11:37
[2016-09-20] MEDS ORDERED: POLYETHYLENE GLYCOL 3350 17 GM PACKET. PO PRN (11:45)
[2016-09-20] MEDS ORDERED: HYDROcodone/APAP 7.5/325MG 1 TAB TABLET PO PRN (13:00)
[2016-09-20] MEDS: HYDROcodone/APAP 7.5/325MG 1 TAB TABLET PO PRN ×2 (13:49→21:59)
[2016-09-20 13:55] LABS: HEMATOCRIT 23.4 % (36.0-47.0); HEMOGLOBIN 7.7 g/dL (12.0-15.5); RED BLOOD COUNT 2.57 x10^6/uL (3.50-5.40); RED CELL DISTRIBUTION WIDTH 15.5 % (11.5-14.5); WHITE BLOOD COUNT 12.1 x10^3/uL (4.0-11.0)
[2016-09-20 14:22] LABS: CALCIUM 9.1 mg/dL (8.5-10.1); CREATININE 2.1 mg/dL (0.6-1.0); GFR 27.3; POTASSIUM 3.6 mmol/L (3.5-5.1)
--- NOTE | 2016-09-20 14:36 | PDOC ---
PROGRESS NOTES Subjective Subjective Patient continues to progress patient now having flatus and had liquid stool today. Diet being advanced by surgery. Patient ambulate in complaining of feet pain today. 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 Follow-up labs pending Objective Objective Vital Signs Date Time Temp Pulse Resp B/P (MAP) Pulse Ox O2 Delivery O2 Flow Rate FiO2 09/20/16 13:49 98 Room Air 2.0 09/20/16 11:00 98.8 81 18 167/76 (106) 98.8 Intake and Output 09/20/16 07:00 Intake Total 940 ml Balance 940 ml Intake Oral 940 ml # Voids 5 Physical Exam Abdomen: Normal bowel sounds Heart: Regular rate Extremities: No edema, Other (mild tenderness feet bilaterally) General: Alert, Oriented X3, Cooperative, No acute distress Lungs: Clear to auscultation Assessment Assessment Problems Medical Problems: (1) Lower GI bleed Status: Acute Lower GI bleed with anemia. S/p left colon resection and takedown of splenic flexure 09/17/16 HTN - controlled with home meds DM2 - stable, continue SS insulin when needed. prerenal azotemia - much better, continue IVF when NPO and clears when allowed. Liver nodules Reflux Adenomatous colon polyp Plan Plan of Care Start hydrocodone when necessary Continue PT and OT modalities Work towards halfway unless improvement with mobility Monitor diet and bowel function Check CBC and BMP Comment Review of Relevant I have reviewed the following items veronique (where applicable) has been applied. Labs Laboratory Tests Test 09/18/16 16:11 09/18/16 20:44 09/19/16 06:59 09/19/16 10:36 Glucose (Fingerstick) 134 mg/dL (70-99) 182 mg/dL (70-99) 159 mg/dL (70-99) 159 mg/dL (70-99) Test 09/19/16 16:05 09/19/16 21:08 09/20/16 07:18 09/20/16 10:33 Glucose (Fingerstick) 227 mg/dL (70-99) 176 mg/dL (70-99) 150 mg/dL (70-99) 193 mg/dL (70-99) Test 09/20/16 13:30 White Blood Count 12.1 x10^3/uL (4.0-11.0) Red Blood Count 2.57 x10^6/uL (3.50-5.40) Hemoglobin 7.7 g/dL (12.0-15.5) Hematocrit 23.4 % (36.0-47.0) Mean Corpuscular Volume 91 fL (79-100) Mean Corpuscular Hemoglobin 30 pg (25-35) Mean Corpuscular Hemoglobin Concent 33 g/dL (31-37) Red Cell Distribution Width 15.5 % (11.5-14.5) Platelet Count 382 x10^3/uL (140-400) Sodium Level 139 mmol/L (136-145) Potassium Level 3.6 mmol/L (3.5-5.1) Chloride Level 104 mmol/L (98-107) Carbon Dioxide Level 24 mmol/L (21-32) Anion Gap 11 (6-14) Blood Urea Nitrogen 21 mg/dL (7-20) Creatinine 2.1 mg/dL (0.6-1.0) Estimated GFR (Cockcroft-Gault) 27.3 Glucose Level 210 mg/dL (70-99) Calcium Level 9.1 mg/dL (8.5-10.1) Laboratory Tests Test 09/19/16 16:05 09/19/16 21:08 09/20/16 07:18 09/20/16 10:33 Glucose (Fingerstick) 227 mg/dL (70-99) 176 mg/dL (70-99) 150 mg/dL (70-99) 193 mg/dL (70-99) Test 09/20/16 13:30 White Blood Count 12.1 x10^3/uL (4.0-11.0) Red Blood Count 2.57 x10^6/uL (3.50-5.40) Hemoglobin 7.7 g/dL (12.0-15.5) Hematocrit 23.4 % (36.0-47.0) Mean Corpuscular Volume 91 fL (79-100) Mean Corpuscular Hemoglobin 30 pg (25-35) Mean Corpuscular Hemoglobin Concent 33 g/dL (31-37) Red Cell Distribution Width 15.5 % (11.5-14.5) Platelet Count 382 x10^3/uL (140-400) Sodium Level 139 mmol/L (136-145) Potassium Level 3.6 mmol/L (3.5-5.1) Chloride Level 104 mmol/L (98-107) Carbon Dioxide Level 24 mmol/L (21-32) Anion Gap 11 (6-14) Blood Urea Nitrogen 21 mg/dL (7-20) Creatinine 2.1 mg/dL (0.6-1.0) Estimated GFR (Cockcroft-Gault) 27.3 Glucose Level 210 mg/dL (70-99) Calcium Level 9.1 mg/dL (8.5-10.1) Microbiology 09/10/16 Urine Culture - Final, Complete 09/10/16 Urine Culture Result 1 (INGE) - Final, Complete Medications Current Medications Fentanyl Citrate (Fentanyl 2ml Vial) 25 mcg PRN Q15MIN PRN IV PAIN GREATER THAN 3/10 Last administered on 09/10/16 11:15; Start 09/10/16 at 10:00; Stop at 09:59; Status DC Ondansetron HCl (Zofran) 4 mg PRN Q8HRS PRN IV NAUSEA/VOMITING; Start 09/10/16 at 11:30; Stop 09/11/16 at 11:29; Status DC Fentanyl Citrate (Fentanyl 2ml Vial) 50 mcg PRN Q1HR PRN IV PAIN Last administered on 09/11/16 07:40; Start 09/10/16 at 11:30; Stop 09/11/16 at 11:29 ; Status DC Sodium Chloride 1,000 ml @ 125 mls/hr Q8H IV Last administered on 09/10/16 14 :30; Start 09/10/16 at 11:16; Stop 09/11/16 at 11:15; Status DC Sodium Chloride 500 ml @ 500 mls/hr 1X ONCE IV Last administered on 11:35; Start 09/10/16 at 11:30; Stop 09/10/16 at 12:29; Status DC Iohexol (Omnipaque 350 Mg/ml) 90 ml 1X ONCE IV Last administered on 09/10/16 14:00; Start 09/10/16 at 13:30; Stop 09/10/16 at 13:35; Status DC Famotidine (Pepcid) 20 mg DAILY IVP Last administered on 09/19/16 09:12; Start 09/10/16 at 14:00; Stop 09/19/16 at 12:36; Status DC Diphenhydramine HCl (Benadryl) 25 mg PRN Q6HRS PRN IVP ITCHING Last administered on 09/10/16t 17:36; Start 09/10/16 at 17:30 Iohexol (Omnipaque 300 Mg/ml) 100 ml STK-MED ONCE .ROUTE ; Start 09/11/16 at 08: 11; Stop 09/11/16 at 08:12; Status DC Lidocaine/Sodium Bicarbonate (Buffered Lidocaine 1%) 20 ml STK-MED ONCE IJ ; Start 09/11/16 at 08:12; Stop 09/11/16 at 08:13; Status DC Heparin Sodium/ Sodium Chloride 1,500 ml @ As Directed STK-MED ONCE .ROUTE ; Start 09/11/16 at 08:12; Stop 09/11/16 at 08:13; Status DC Midazolam HCl (Versed) 2 mg STK-MED ONCE .ROUTE ; Start 09/11/16 at 08:29; Stop 09/11/16 at 08:30; Status DC Ondansetron HCl (Zofran) 4 mg PRN Q6HRS PRN IV NAUSEA/VOMITING; Start 09/11/16 at 09:00; Stop 09/12/16 at 08:59; Status DC Fentanyl Citrate (Fentanyl 2ml Vial) 25 mcg PRN Q5MIN PRN IV MILD PAIN; Start 09/11/16 at 09:00; Stop 09/12/16 at 08:59; Status DC Fentanyl Citrate (Fentanyl 2ml Vial) 50 mcg PRN Q5MIN PRN IV MODERATE PAIN; Start 09/11/16 at 09:00; Stop 09/12/16 at 08:59; Status DC Ringer's Solution 1,000 ml @ 30 mls/hr Q24H IV ; Start 09/11/16 at 08:46; Stop 09/11/16 at 20:45; Status DC Lidocaine HCl 2 ml PRN 1X PRN ID PRIOR TO IV START; Start 09/11/16 at 09:00; Stop 09/12/16 at 08:59; Status DC Prochlorperazine Edisylate (Compazine) 5 mg PACU PRN PRN IV NAUSEA, MRX1; Start 09/11/16 at 09:00; Stop 09/12/16 at 08:59; Status DC Heparin Sodium/ Sodium Chloride 1,000 unit 1X ONCE IART Last administered on 09:26; Start 09/11/16 at 09:15; Stop 09/11/16 at 09:16; Status DC Lidocaine/Sodium Bicarbonate (Buffered Lidocaine 1%) 20 ml 1X ONCE IJ Last administered on 09/11/16 09:28; Start 09/11/16 at 09:15; Stop 09/11/16 at 09:16 ; Status DC Midazolam HCl (Versed) 2 mg 1X ONCE IV Last administered on 09/11/16 09:28; Start 09/11/16 at 09:15; Stop 09/11/16 at 09:16; Status DC Fentanyl Citrate (Fentanyl 2ml Vial) 100 mcg 1X ONCE IV Last administered on 09:28; Start 09/11/16 at 09:15; Stop 09/11/16 at 09:16; Status DC Iohexol (Omnipaque 300 Mg/ml) 100 ml 1X ONCE IART Last administered on 09:28; Start 09/11/16 at 09:15; Stop 09/11/16 at 09:16; Status DC Diltiazem HCl (Cardizem 24hr Cd) 240 mg DAILY PO Last administered on 08:32; Start 09/11/16 at 17:00 Ferrous Sulfate (Feosol) 325 mg DAILYWBKFT PO Last administered on 09/20/16 08 :31; Start 09/12/16 at 08:00 Acetaminophen/ Hydrocodone Bitart (Lortab 5/325) 1 tab PRN Q6HRS PRN PO PAIN Last administered on 09/16/16 16:53; Start 09/11/16 at 16:30 Lisinopril (Prinivil) 40 mg DAILY PO Last administered on 09/20/16 08:32; Start 09/11/16 at 17:00 Metoprolol Tartrate (Lopressor) 75 mg BID PO Last administered on 09/17/16 07: 45; Start 09/11/16 at 21:00; Stop 09/18/16 at 13:02; Status DC Triamterene/HCTZ (Maxzide 75/50mg) 1 tab DAILY PO Last administered on 08:46; Start 09/11/16 at 17:00 Insulin Aspart (NovoLOG) 0-5 UNITS TIDWMEALS SQ Last administered on 09/20/16 12:29; Start 09/12/16 at 12:00 Dextrose (Dextrose 50%-Water Syringe) 12.5 gm PRN Q15MIN PRN IV SEE COMMENTS; Start 09/12/16 at 08:45 Sodium Chloride 1,000 ml @ 100 mls/hr Q10H IV Last administered on 09/13/16 07:58; Start 09/12/16 at 08:45; Stop 09/13/16 at 13:44; Status DC Alteplase, Recombinant (Cathflo) 2 mg 1X ONCE INT CAT Last administered on 11:50; Start 09/12/16 at 11:45; Stop 09/12/16 at 11:46; Status DC Sodium Cl/Sod Bicarb/Potass Cl/ PEG (Golytely) 4,000 ml 1X ONCE PO Last administered on 09/13/16 16:33; Start 09/13/16 at 15:00; Stop 09/13/16 at 15:01 ; Status DC Sodium Chloride 1,000 ml @ 100 mls/hr Q10H IV Last administered on 09/20/16 05:40; Start 09/13/16 at 14:00 Fentanyl Citrate (Fentanyl 2ml Vial) 50 mcg PRN Q4HRS PRN IV PAIN Last administered on 09/20/16 08:44; Start 09/13/16 at 13:45 Fentanyl Citrate (Fentanyl 2ml Vial) 25 mcg PRN Q4HRS PRN IV PAIN Last administered on 09/20/16 01:27; Start 09/13/16 at 13:45 Ondansetron HCl (Zofran) 4 mg PRN Q6HRS PRN IV NAUSEA/VOMITING; Start 09/14/16 at 07:00; Stop 09/15/16 at 07:00; Status DC Fentanyl Citrate (Fentanyl 2ml Vial) 25 mcg PRN Q5MIN PRN IV MILD PAIN; Start 09/14/16 at 07:00; Stop 09/15/16 at 07:00; Status DC Fentanyl Citrate (Fentanyl 2ml Vial) 50 mcg PRN Q5MIN PRN IV MODERATE PAIN; Start 09/14/16 at 07:00; Stop 09/15/16 at 07:00; Status DC Ringer's Solution 1,000 ml @ 30 mls/hr Q24H IV ; Start 09/14/16 at 07:00; Stop 09/14/16 at 18:59; Status DC Lidocaine HCl 2 ml PRN 1X PRN ID PRIOR TO IV START; Start 09/14/16 at 07:00; Stop 09/15/16 at 07:00; Status DC Prochlorperazine Edisylate (Compazine) 5 mg PACU PRN PRN IV NAUSEA, MRX1; Start 09/14/16 at 07:00; Stop 09/15/16 at 07:00; Status DC Midazolam HCl (Versed) 2 mg PRN 1X PRN IV PRIOR TO PROCEDURE; Start 09/14/16 at 10:00; Stop 09/15/16 at 09:59; Status DC Fentanyl Citrate (Fentanyl 2ml Vial) 25 mcg PRN Q5MIN PRN IV X 2 DOSES FOR PAIN ; Start 09/14/16 at 10:00; Stop 09/15/16 at 09:59; Status DC Fentanyl Citrate (Fentanyl 2ml Vial) 50 mcg PRN Q5MIN PRN IV X 2 DOSES FOR PAIN ; Start 09/14/16 at 10:00; Stop 09/15/16 at 09:59; Status DC Lidocaine HCl 2 ml 1X PRN PRN ID IV START; Start 09/14/16 at 10:00; Stop at 09:59; Status DC Propofol 20 ml @ As Directed STK-MED ONCE IV ; Start 09/14/16 at 10:38; Stop at 10:39; Status DC Lidocaine HCl (Lidocaine Pf 2% Vial) 5 ml STK-MED ONCE .ROUTE ; Start 09/14/16 at 10:38; Stop 09/14/16 at 10:39; Status DC Ondansetron HCl (Zofran) 4 mg PRN Q6HRS PRN IV NAUSEA/VOMITING; Start 09/17/16 at 07:00; Stop 09/17/16 at 16:39; Status DC Fentanyl Citrate (Fentanyl 2ml Vial) 25 mcg PRN Q5MIN PRN IV MILD PAIN; Start 09/17/16 at 07:00; Stop 09/17/16 at 16:39; Status DC Fentanyl Citrate (Fentanyl 2ml Vial) 50 mcg PRN Q5MIN PRN IV MODERATE PAIN Last administered on 09/17/16 11:30; Start 09/17/16 at 07:00; Stop 09/17/16 at 16:39; Status DC Ringer's Solution 1,000 ml @ 30 mls/hr Q24H IV Last administered on 09/17/16 07:00; Start 09/17/16 at 07:00; Stop 09/17/16 at 16:39; Status DC Lidocaine HCl 2 ml PRN 1X PRN ID PRIOR TO IV START; Start 09/17/16 at 07:00; Stop 09/17/16 at 16:39; Status DC Prochlorperazine Edisylate (Compazine) 5 mg PACU PRN PRN IV NAUSEA, MRX1; Start 09/17/16 at 07:00; Stop 09/17/16 at 16:39; Status DC Cefoxitin Sodium 2 gm/Sodium Chloride 100 ml @ 200 mls/hr 1X PERIOP IV Last administered on 09/17/16 08:50; Start 09/17/16 at 06:00; Stop 09/17/16 at 16:40 ; Status DC Cefoxitin Sodium 100 ml @ As Directed STK-MED ONCE IV ; Start 09/17/16 at 06:52 ; Stop 09/17/16 at 06:53; Status DC Bupivacaine HCl/ Epinephrine Bitart (Marcaine-Epi 0.5%-1:[id number]) 50 ml STK-MED ONCE .ROUTE Last administered on 09/17/16 08:24; Start 09/17/16 at 07:24; Stop 09/17/16 at 07:25; Status DC Fentanyl Citrate (Fentanyl 5ml Vial) 250 mcg STK-MED ONCE .ROUTE ; Start at 07:41; Stop 09/17/16 at 07:42; Status DC Rocuronium [place] (Zemuron) 50 mg STK-MED ONCE .ROUTE ; Start 09/17/16 at 07:42 ; Stop 09/17/16 at 07:43; Status DC Desflurane (Suprane) 90 ml STK-MED ONCE IH ; Start 09/17/16 at 07:42; Stop 09/17 at 07:43; Status DC Dexamethasone Sodium Phosphate (Decadron) 20 mg STK-MED ONCE .ROUTE ; Start at 07:42; Stop 09/17/16 at 07:43; Status DC Propofol 20 ml @ As Directed STK-MED ONCE IV ; Start 09/17/16 at 07:42; Stop at 07:43; Status DC Lidocaine HCl (Lidocaine Pf 2% Vial) 5 ml STK-MED ONCE .ROUTE ; Start 09/17/16 at 07:42; Stop 09/17/16 at 07:43; Status DC Ondansetron HCl (Zofran) 4 mg STK-MED ONCE .ROUTE ; Start 09/17/16 at 07:42; Stop 09/17/16 at 07:43; Status DC Phenylephrine HCl 1 mg STK-MED ONCE IV ; Start 09/17/16 at 07:45; Stop 09/17/16 at 07:46; Status DC Fentanyl Citrate (Fentanyl 2ml Vial) 50 mcg PACU PRN PRN IV PAIN Last administered on 09/17/16t 07:52; Start 09/17/16 at 07:30; Stop 09/17/16 at 16:39 ; Status DC Labetalol HCl (Normodyne) 20 mg STK-MED ONCE .ROUTE ; Start 09/17/16 at 08:42; Stop 09/17/16 at 08:43; Status DC Rocuronium [place] (Zemuron) 50 mg STK-MED ONCE .ROUTE ; Start 09/17/16 at 09:11 ; Stop 09/17/16 at 09:12; Status DC Insulin Human Regular (NovoLIN R VIAL) 100 unit STK-MED ONCE .ROUTE ; Start at 09:21; Stop 09/17/16 at 09:22; Status DC Glycopyrrolate (Robinul) 1 mg STK-MED ONCE .ROUTE ; Start 09/17/16 at 09:34; Stop 09/17/16 at 09:35; Status DC Neostigmine Methylsulfate 5 mg STK-MED ONCE .ROUTE ; Start 09/17/16 at 09:35; Stop 09/17/16 at 09:36; Status DC Enoxaparin Sodium (Lovenox 40mg Syringe) 40 mg Q24H SQ ; Start 09/17/16 at 10:45 ; Stop 09/17/16 at 11:33; Status DC Sodium Chloride (Normal Saline Flush) 3 ml QSHIFT PRN IV AFTER MEDS AND BLOOD DRAWS; Start 09/17/16 at 10:45 Ringer's Solution 1,000 ml @ 100 mls/hr Q10H IV ; Start 09/17/16 at 10:35; Stop 09/20/16 at 02:14; Status DC Naloxone HCl (Narcan) 0.4 mg PRN Q2MIN PRN IV SEE INSTRUCTIONS; Start 09/17/16 at 10:45 Sodium Chloride 1,000 ml @ 25 mls/hr Q24H IV ; Start 09/17/16 at 10:35 Hydromorphone HCl 30 ml @ 0 mls/hr CONT PRN PRN IV PROTOCOL Last administered on 09/18/16 03:10; Start 09/17/16 at 10:45; Stop 09/19/16 at 19:39; Status DC Ondansetron HCl (Zofran) 4 mg PRN Q6HRS PRN IV JEYSONA, 1ST CHOICE; Start at 10:45 Enoxaparin Sodium (Lovenox 40mg Syringe) 40 mg Q24H SQ Last administered on 21:29; Start 09/17/16 at 22:00 Hydralazine HCl (Apresoline) 10 mg PRN Q6HRS PRN IVP ELEVATED BP, SEE COMMENTS Last administered on 09/19/16 09:15; Start 09/17/16 at 21:00; Stop 09/19/16 at 14:24; Status DC Metoprolol Tartrate (Lopressor) 10 mg Q6HRS IVP Last administered on 09/19/16 12:54; Start 09/18/16 at 13:15; Stop 09/19/16 at 17:08; Status DC Hydralazine HCl (Apresoline) 10 mg PRN Q6HRS PRN IVP ELEVATED BP, SEE COMMENTS ; Start 09/18/16 at 20:15 Acetaminophen (Acetaminophen Supp) 650 mg PRN Q6HRS PRN [place] MILD PAIN / TEMP; Start 09/19/16 at 04:15 Pantoprazole Sodium (Protonix) 40 mg DAILYAC PO Last administered on 09/20/16 08:43; Start 09/20/16 at 07:30 Metoprolol Tartrate (Lopressor) 75 mg BID PO Last administered on 09/20/16 08: 33; Start 09/19/16 at 21:00 Polyethylene Glycol (miraLAX PACKET) 17 gm PRN DAILY PRN PO CONSTIPATION; Start 09/20/16 at 11:45 Acetaminophen/ Hydrocodone Bitart (Lortab 7.5/325) 1 tab PRN Q6HRS PRN PO PAIN Last administered on 09/20/16 13:49; Start 09/20/16 at 13:00 Acetaminophen/ Hydrocodone Bitart (Lortab 7.5/325) 2 tab PRN Q6HRS PRN PO PAIN ; Start 09/20/16 at 13:00 Active Scripts Active Metoprolol Tartrate 50 Mg Tablet 75 Mg PO BID 30 Days Feosol (Ferrous Sulfate) 325 Mg Tablet 325 Mg PO DAILYWBKFT 30 Days Reported Glimepiride 2 Mg Tablet 1 Tab PO DAILY08 Glimepiride 1 Mg Tablet 1 Tab PO DAILYBFRSUP Pravastatin Sodium 80 Mg Tablet 1 Tab PO QHS Metformin Hcl 500 Mg Tablet 1 Tab PO BID Lisinopril 40 Mg Tablet 1 Tab PO DAILY Triamterene-Hctz 75-50 Mg Tab (Triamterene/Hydrochlorothiazid) 1 Each Tablet 1 Tab PO DAILY Diltiazem 24HR Cd (Diltiazem Hcl) 240 Mg Cap.er.24h 240 Mg PO DAILY [place] 5-325 Tablet (Acetaminophen/Hydrocodone Bitart) 1 Each Tablet 1 Tab PO PRN Q6HRS PRN Vitals/I & O Vital Sign - Last 24 Hours 09/19/16 09/19/16 09/19/16 09/19/16 14:49 19:00 20:00 21:28 Temp 97.7 98.5 97.7 98.5 Pulse 104 107 107 Resp 20 18 B/P (MAP) 160/65 (96) 151/60 (90) 151/60 Pulse Ox 95 100 O2 Delivery Nasal Cannula Nasal Cannula Room Air O2 Flow Rate 2.0 2.0 09/19/16 09/20/16 09/20/16 09/20/16 23:00 01:27 01:55 02:49 Temp 98.7 99.1 98.7 99.1 Pulse 79 88 Resp 19 18 17 19 B/P (MAP) 149/58 (88) 165/79 (107) Pulse Ox 96 99 O2 Delivery Nasal Cannula Room Air Room Air Nasal Cannula O2 Flow Rate 2.0 2.0 09/20/16 09/20/16 09/20/16 09/20/16 07:00 08:00 08:32 08:32 Temp 98.8 98.8 Pulse 91 91 91 Resp 20 B/P (MAP) 181/70 (107) 174/76 174/76 174/76 (108) Pulse Ox 100 O2 Delivery Room Air Room Air 09/20/16 09/20/16 09/20/16 09/20/16 08:33 08:44 11:00 12:09 Temp 98.8 98.8 Pulse 91 81 Resp 18 B/P (MAP) 174/76 167/76 (106) Pulse Ox 100 98 98 O2 Delivery Room Air Room Air Room Air 09/20/16 13:49 Pulse Ox 98 O2 Delivery Room Air O2 Flow Rate 2.0 Intake and Output 09/19/16 09/19/16 09/20/16 15:00 23:00 07:00 Intake Total 300 ml 640 ml Balance 300 ml 640 ml ELEUTERIO MOSER MD Sep 20, 2016 14:36
[2016-09-20 15:00] VITALS: BP 164/64
--- NOTE | 2016-09-20 15:09 | PATHOLOGY ---
PATHOLOGY REPORT * * * * * * * * FINAL DIAGNOSIS: A. Segment of colon and attached mesocolon, left colon resection: - Diverticulosis. - Chronic diverticulitis. - Diverticular associated colitis, focal. B. Liver, wedge biopsy: - Small sclerotic hyalinized granulomas. (JPM:karyn; 09/19/2016) COMMENT: A. Sections of the left colon resection reveal diverticulosis and chronic diverticulitis. There is no evidence of malignancy. B. Sections of the liver wedge biopsy reveal several small sclerotic and hyalinized granulomas. Special stains for acid-fast bacilli and fungi are obtained and yield the following results: AFB stain (B1): Negative for acid-fast bacilli GMS stain (B1): Negative for yeast/fungi. (JPM:pit; 09/20/2016) REPORT ELECTRONICALLY SIGNED BY: Michel Abel M.D. DATE/TIME: 09/20/2016 15:08 * * * * * * * * GROSS PATHOLOGY: A. The specimen is received in formalin, labeled "[place] colon" is an unoriented segment of colon measuring 31.3 cm in length by 7.2 cm in circumference with resection margins stapled to each other. The serosa is sheppard-pink and smooth. The attached mesocolon runs the entire length of the specimen and measures up to 4.2 cm in thickness. The specimen is opened along the antimesocolic aspect to reveal a sheppard-pink mucosa with undulating folds. Attached to one end of the specimen is a 3.0 x 1.0 x 0.6 cm segment of intestine which reveals a possible perforation adjacent to some erythematous mucosa. Sectioning through the specimen reveals a few diverticula and the intestinal wall ranges in thickness from 0.2 up to 0.7 cm. The mesentery reveals soft yellow lobular parenchyma. Section code: A1 and A2-opposite resection margins, A3-branch sales and service representative sections adjacent to possible perforation, A4 through A6- branch sales and service representative sections submitted sequentially from one end to the opposite B. The specimen is received in formalin, labeled "[place] biopsy" is a 2.1 x 0.9 x 0.3 cm sheppard-brown wedge of liver which reveals 5 circumscribed sheppard-white nodules ranging in size from 0.1 x 0.1 x 0.1 up to 0.2 x 0.2 x 0.2 cm. The tissue is entirely submitted in B1. (DRL; 09/18/2016) INITIAL CPT CODE(S): A; 44117 B; 65729, 04300, 28231 Professional services performed [place] [facility] [place] [address] Technical services performed by [facility] at [address] [place] [address]. SPECIMEN(S) RECEIVED: A.Left colon B.Liver, wedge biopsy CLINICAL HISTORY: GI bleed related to diverticular disease PATIENT: DEBBIE LAM /AGE: 1 1935 (Age: 81) PATIENT #: [id number] ALT CASE #: SPECIMEN COLLECTION DATE: 09/17/2016 SPECIMEN RECEIVED DATE: 09/17/2016 [facility] - [address] [place] [address] - PHONE: [phone] * * * END OF REPORT * * *
[2016-09-20 19:20] VITALS: BP 141/55
[2016-09-20] MEDS: ENOXAPARIN 40 MG/0.4 ML SYRINGE. SQ SCH (21:44)
[2016-09-20 23:15] VITALS: BP 170/76
[2016-09-21] MEDS: IV 1/2 NORMAL SALINE 1,000 ML IV SCH (02:00)
[2016-09-21 03:13] VITALS: BP 141/75
[2016-09-21] MEDS: PANTOPRAZOLE 40 MG TABLET.DR. PO SCH (06:28)
[2016-09-21] MEDS: HYDROcodone/APAP 7.5/325MG 1 TAB TABLET PO PRN ×2 (06:28→18:02)
[2016-09-21 07:13] VITALS: BP 159/66
--- NOTE | 2016-09-21 08:19 | PDOC ---
SURGICAL PROGRESS NOTE Subjective Pt without c/o, sitting up eating regular diet breakfast Vital Signs Vital Signs Date Time Temp Pulse Resp B/P (MAP) Pulse Ox O2 Delivery O2 Flow Rate FiO2 09/21/16 07:13 97.9 81 18 159/66 (97) 98 Room Air 97.9 09/20/16 19:20 2.0 I&O Intake and Output 09/21/16 07:00 # Voids 14 # Bowel Movements 2 General: Alert, Oriented X3, Cooperative, No acute distress Abdomen: Soft Labs Laboratory Tests Test 09/19/16 10:36 09/19/16 16:05 09/19/16 21:08 09/20/16 07:18 Glucose (Fingerstick) 159 mg/dL (70-99) 227 mg/dL (70-99) 176 mg/dL (70-99) 150 mg/dL (70-99) Test 09/20/16 10:33 09/20/16 13:30 09/20/16 17:28 09/20/16 20:56 Glucose (Fingerstick) 193 mg/dL (70-99) 209 mg/dL (70-99) 171 mg/dL (70-99) White Blood Count 12.1 x10^3/uL (4.0-11.0) Red Blood Count 2.57 x10^6/uL (3.50-5.40) Hemoglobin 7.7 g/dL (12.0-15.5) Hematocrit 23.4 % (36.0-47.0) Mean Corpuscular Volume 91 fL (79-100) Mean Corpuscular Hemoglobin 30 pg (25-35) Mean Corpuscular Hemoglobin Concent 33 g/dL (31-37) Red Cell Distribution Width 15.5 % (11.5-14.5) Platelet Count 382 x10^3/uL (140-400) Sodium Level 139 mmol/L (136-145) Potassium Level 3.6 mmol/L (3.5-5.1) Chloride Level 104 mmol/L (98-107) Carbon Dioxide Level 24 mmol/L (21-32) Anion Gap 11 (6-14) Blood Urea Nitrogen 21 mg/dL (7-20) Creatinine 2.1 mg/dL (0.6-1.0) Estimated GFR (Cockcroft-Gault) 27.3 Glucose Level 210 mg/dL (70-99) Calcium Level 9.1 mg/dL (8.5-10.1) Test 09/21/16 07:18 Glucose (Fingerstick) 167 mg/dL (70-99) Laboratory Tests Test 09/20/16 10:33 09/20/16 13:30 09/20/16 17:28 09/20/16 20:56 Glucose (Fingerstick) 193 mg/dL (70-99) 209 mg/dL (70-99) 171 mg/dL (70-99) White Blood Count 12.1 x10^3/uL (4.0-11.0) Red Blood Count 2.57 x10^6/uL (3.50-5.40) Hemoglobin 7.7 g/dL (12.0-15.5) Hematocrit 23.4 % (36.0-47.0) Mean Corpuscular Volume 91 fL (79-100) Mean Corpuscular Hemoglobin 30 pg (25-35) Mean Corpuscular Hemoglobin Concent 33 g/dL (31-37) Red Cell Distribution Width 15.5 % (11.5-14.5) Platelet Count 382 x10^3/uL (140-400) Sodium Level 139 mmol/L (136-145) Potassium Level 3.6 mmol/L (3.5-5.1) Chloride Level 104 mmol/L (98-107) Carbon Dioxide Level 24 mmol/L (21-32) Anion Gap 11 (6-14) Blood Urea Nitrogen 21 mg/dL (7-20) Creatinine 2.1 mg/dL (0.6-1.0) Estimated GFR (Cockcroft-Gault) 27.3 Glucose Level 210 mg/dL (70-99) Calcium Level 9.1 mg/dL (8.5-10.1) Test 09/21/16 07:18 Glucose (Fingerstick) 167 mg/dL (70-99) Problem List Problems Medical Problems: (1) Lower GI bleed Status: Acute Assessment/Plan s/p left colon path benign working on placement Problems: ALBERT PATRICIA MD Sep 21, 2016 08:19
[2016-09-21] MEDS: INSULIN ASPART 300 UNITS/3 ML INSULN.PEN SQ SCH ×3 (09:11→17:00)
--- NOTE | 2016-09-21 09:51 | PDOC ---
Subjective: Subjective: Doing better w/ less pain today. BM yesterday, tolerating PO. Gout flare left foot. Objective: Vital Signs: Vital Signs Date Time Temp Pulse Resp B/P (MAP) Pulse Ox O2 Delivery O2 Flow Rate FiO2 09/21/16 07:13 97.9 81 18 159/66 (97) 98 Room Air 97.9 09/20/16 19:20 2.0 Labs: Laboratory Tests Test 09/20/16 10:33 09/20/16 13:30 09/20/16 17:28 09/20/16 20:56 Glucose (Fingerstick) 193 mg/dL 209 mg/dL 171 mg/dL White Blood Count 12.1 x10^3/uL Red Blood Count 2.57 x10^6/uL Hemoglobin 7.7 g/dL Hematocrit 23.4 % Mean Corpuscular Volume 91 fL Mean Corpuscular Hemoglobin 30 pg Mean Corpuscular Hemoglobin Concent 33 g/dL Red Cell Distribution Width 15.5 % Platelet Count 382 x10^3/uL Sodium Level 139 mmol/L Potassium Level 3.6 mmol/L Chloride Level 104 mmol/L Carbon Dioxide Level 24 mmol/L Anion Gap 11 Blood Urea Nitrogen 21 mg/dL Creatinine 2.1 mg/dL Estimated GFR (Cockcroft-Gault) 27.3 Glucose Level 210 mg/dL Calcium Level 9.1 mg/dL Test 09/21/16 07:18 Glucose (Fingerstick) 167 mg/dL PE: GEN: NAD, up to teresita LUNGS: clear HEART: RRR ABD: BS+, soft NEURO/PSYCH: A & O 3 A/P: S/p left colon resection and takedown of splenic flexure 09/17/16 -noted liver nodules, path benign Left foot pain -per primary -- Improved post-op. Note place for PP, DC per primary. PAGE SCHOFIELD Sep 21, 2016 09:51
[2016-09-21] MEDS: IV NORMAL SALINE 1000ML BAG 1,000 ML IV SCH (10:35)
[2016-09-21 10:43] VITALS: BP 178/66
[2016-09-21] MEDS: TRIAMTERENE/HCTZ 75/50MG TABLET. PO SCH (11:01)
[2016-09-21] MEDS: FERROUS SULFATE 325 MG TABLET. PO SCH (11:01)
[2016-09-21] MEDS: METOPROLOL TART IMMED RELEASE 25 MG TABLET. PO SCH (11:02)
[2016-09-21] MEDS: LISINOPRIL 40 MG TABLET. PO SCH (11:02)
[2016-09-21] MEDS: HYDROcodone/APAP 5/325MG 1 TAB TABLET PO PRN (13:26)
[2016-09-21 14:30] VITALS: BP 148/67
[2016-09-21] MEDS ORDERED: ENOXAPARIN 30 MG/0.3 ML SYRINGE. SQ SCH (21:00)
== END 2016-09-21 18:30 | DRG 329 ==
LOC: ER 09:19 → 1 WEST ICU 11:04 → 4 NORTH 09-14 16:00
PROVIDERS: ADMIT Family Medicine; ATTEND Family Medicine
PROC: 30233L1 Transfusion of Nonautologous Fresh Plasma into Peripheral Vein, Percutaneous Approach (ICD-10-PCS; 2016-09-10)
PROC: 30233N1 Transfusion of Nonautologous Red Blood Cells into Peripheral Vein, Percutaneous Approach (ICD-10-PCS; 2016-09-10)
PROC: 30233K1 Transfusion of Nonautologous Frozen Plasma into Peripheral Vein, Percutaneous Approach (ICD-10-PCS; 2016-09-10)
PROC: 0DBN8ZX Excision of Sigmoid Colon, Via Natural or Artificial Opening Endoscopic, Diagnostic (ICD-10-PCS; 2016-09-14)
PROC: 0DTG4ZZ Resection of Left Large Intestine, Percutaneous Endoscopic Approach (ICD-10-PCS; principal; 2016-09-20)
PROC: 0FB04ZX Excision of Liver, Percutaneous Endoscopic Approach, Diagnostic (ICD-10-PCS; 2016-09-20)
DX: D12.5 Benign neoplasm of sigmoid colon (principal); K57.31 Diverticulosis of large intestine without perforation or abscess with bleeding; K92.2 Gastrointestinal hemorrhage, unspecified; D62 Acute posthemorrhagic anemia; K56.7 Ileus, unspecified; N17.9 Acute kidney failure, unspecified; E11.9 Type 2 diabetes mellitus without complications; E66.9 Obesity, unspecified; Z68.33 Body mass index [BMI] 33.0-33.9, adult; E78.5 Hyperlipidemia, unspecified; I10 Essential (primary) hypertension; K21.9 Gastro-esophageal reflux disease without esophagitis; K64.8 Other hemorrhoids; K66.8 Other specified disorders of peritoneum; K76.89 Other specified diseases of liver; L29.9 Pruritus, unspecified; M10.9 Gout, unspecified; Z96.649 Presence of unspecified artificial hip joint; Z96.651 Presence of right artificial knee joint; Z79.899 Other long term (current) drug therapy; Z88.6 Allergy status to analgesic agent
CPT/HCPCS: 36245; 36415; 51701; 74000; 74174; 75726; 76937; 78278; 80048; 80053; 81001; 82274; 82962; 83605; 84484; 84550; 85007; 85018; 85027; 85610; 85730; 86850; 86900; 86901; 86920; 86927; 87086; 87641; 88305; 88307; 88312; 93005; 96374; 99152; 99153; A9560; C1713; C1760; C1769; C1892; C1894; G0238; G0269; J0360; J0694; J1100; J1170; J1200; J1644; J1650; J1815; J2001; J2250; J2370; J2405; J2704; J2710; J2997; J3010; J3490; J7030; J7040; J7120; P9016; P9017; Q9967; S0028; 97110; 97116; 97530; 97535; 99285-25; A6539

== ENCOUNTER 2016-10-20 13:26 | Emergency (ER) | payer BC ==
[~2016-10-20] VITALS: Ht 167.6 cm; Wt 91.6 kg
[~2016-10-20 13:26] MED LIST changes: +GLIM1TAB2 PO
--- NOTE | 2016-10-20 13:46 | PHYS DOC ---
Past Medical History Past Medical History: Diverticulitis Past Surgical History: Hip Replacement Additional Past Surgical Histo: R knee, back Alcohol Use: None Drug Use: None Adult General Chief Complaint Chief Complaint: NAUSEA/VOMITING/DIARRHA HPI HPI Patient is a 81 year old -Citizen Of [place] Citizen [place] female who presents with 5- 7 days of decreased appetite and generalized weakness. She states she's been having normal bowel movements. She states she doesn't feel hungry and doesn't want to eat or drink anything. She states she had part of her colon resected in August 2016 secondary to diverticular bleed. She denies any abdominal pain, blood in her stool, dysuria, fevers chills. Review of Systems Review of Systems Constitutional: Denies fever or chills [] Eyes: Denies change in visual acuity, redness, or eye pain [] HENT: Denies nasal congestion or sore throat [] Respiratory: Denies cough or shortness of breath [] Cardiovascular: No additional information not addressed in HPI [] GI: Denies abdominal pain, nausea, vomiting, bloody stools or diarrhea [] : Denies dysuria or hematuria [] Musculoskeletal: Denies back pain or joint pain [] Integument: Denies rash or skin lesions [] Neurologic: Denies headache, focal weakness or sensory changes [] Endocrine: Denies polyuria or polydipsia [] Allergies Allergies Allergies Coded Allergies Type Severity Reaction Last Updated Verified Iodinated Contrast- Oral and IV Dye Allergy Intermediate Itching 09/17/16 Yes morphine Allergy Intermediate itching 09/14/16 Yes Physical Exam Physical Exam Constitutional: Well developed, well nourished, no acute distress, non-toxic appearance. [] HENT: Normocephalic, atraumatic, bilateral external ears normal, oropharynx moist, no oral exudates, nose normal. [] Eyes: PERRLA, EOMI, conjunctiva normal, no discharge. [] Neck: Normal range of motion, no tenderness, supple, no stridor. [] Cardiovascular:Heart rate regular rhythm, no murmur [] Lungs & Thorax: Bilateral breath sounds clear to auscultation [] Abdomen: Bowel sounds high-pitched, soft, mild tender palpation left lower quadrant no rebound or guarding noted, well-healed incision present, no masses, no pulsatile masses. [] Skin: Warm, dry, no erythema, no rash. [] Back: No tenderness, no CVA tenderness. [] Extremities: No tenderness, no cyanosis, no clubbing, ROM intact, no edema. [] Neurologic: Alert and oriented X 3, normal motor function, normal sensory function, no focal deficits noted. [] Psychologic: Affect normal, judgement normal, mood normal. [] Current Patient Data Vital Signs Vital Signs Date Time Temp Pulse Resp B/P (MAP) Pulse Ox O2 Delivery O2 Flow Rate FiO2 10/20/16 15:55 71 20 163/78 (106) 99 Room Air 10/20/16 13:48 97.7 97.7 Lab Values Laboratory Tests Test 10/20/16 15:09 10/20/16 16:05 White Blood Count 7.8 x10^3/uL (4.0-11.0) Red Blood Count 3.28 x10^6/uL (3.50-5.40) L Hemoglobin 9.6 g/dL (12.0-15.5) L Hematocrit 28.9 % (36.0-47.0) L Mean Corpuscular Volume 88 fL (79-100) Mean Corpuscular Hemoglobin 29 pg (25-35) Mean Corpuscular Hemoglobin Concent 33 g/dL (31-37) Red Cell Distribution Width 16.5 % (11.5-14.5) H Platelet Count 433 x10^3/uL (140-400) H Neutrophils (%) (Auto) 55 % (31-73) Lymphocytes (%) (Auto) 32 % (24-48) Monocytes (%) (Auto) 10 % (0-9) H Eosinophils (%) (Auto) 2 % (0-3) Basophils (%) (Auto) 2 % (0-3) Neutrophils # (Auto) 4.3 x10^3uL (1.8-7.7) Lymphocytes # (Auto) 2.5 x10^3/uL (1.0-4.8) Monocytes # (Auto) 0.8 x10^3/uL (0.0-1.1) Eosinophils # (Auto) 0.1 x10^3/uL (0.0-0.7) Basophils # (Auto) 0.1 x10^3/uL (0.0-0.2) Prothrombin Time 14.5 SEC (11.7-14.0) H Prothrombin Time INR 1.2 (0.8-1.1) H Sodium Level 139 mmol/L (136-145) Potassium Level 4.5 mmol/L (3.5-5.1) Chloride Level 103 mmol/L (98-107) Carbon Dioxide Level 24 mmol/L (21-32) Anion Gap 12 (6-14) Blood Urea Nitrogen 27 mg/dL (7-20) H Creatinine 1.7 mg/dL (0.6-1.0) H Estimated GFR (Cockcroft-Gault) 34.8 Glucose Level 231 mg/dL (70-99) H Calcium Level 9.8 mg/dL (8.5-10.1) Magnesium Level 1.9 mg/dL (1.8-2.4) Total Bilirubin 0.1 mg/dL (0.2-1.0) L Direct Bilirubin 0.1 mg/dL (0.0-0.2) Aspartate Amino Transferase (AST) 18 U/L (15-37) Alanine Aminotransferase (ALT) 20 U/L (14-59) Alkaline Phosphatase 116 U/L (46-116) Creatine Kinase 21 U/L (26-192) L Creatine Kinase MB (Mass) < 0.5 ng/mL (0.0-3.6) Creatine Kinase MB Relative Index 2.4 % (0-4) Troponin I Quantitative < 0.017 ng/mL (0.000-0.055) SS-Wtq-Y-Type Natriuretic Peptide 450 pg/mL (0-449) H Total Protein 7.7 g/dL (6.4-8.2) Albumin 2.9 g/dL (3.4-5.0) L Lipase 386 U/L (73-393) Thyroid Stimulating Hormone (TSH) 0.037 uIU/mL (0.358-3.74) L Urine Collection Type Unknown Urine Color Yellow Urine Clarity Cloudy Urine pH 5.5 Urine Specific Eldridge 1.010 Urine Protein 100 mg/dL (NEG-TRACE) Urine Glucose (UA) Negative mg/dL (NEG) Urine Ketones (Stick) Negative mg/dL (NEG) Urine Blood Negative (NEG) Urine Nitrite Negative (NEG) Urine Bilirubin Negative (NEG) Urine Urobilinogen Dipstick 0.2 mg/dL (0.2 mg/dL) Urine Leukocyte Esterase Negative (NEG) Urine RBC 0 /HPF (0-2) Urine WBC Occ /HPF (0-4) Urine Squamous Epithelial Cells Many /LPF Urine Bacteria Many /HPF (0-FEW) Urine Opiates Screen Neg (NEG) Urine Methadone Screen Neg (NEG) Urine Barbiturates Neg (NEG) Urine Phencyclidine Screen Neg (NEG) Urine Amphetamine/Methamphetamine Neg (NEG) Urine Benzodiazepines Screen Neg (NEG) Urine Cocaine Screen Neg (NEG) Urine Cannabinoids Screen Neg (NEG) Urine Ethyl Alcohol Neg (NEG) Laboratory Tests 10/20/16 15:09 Laboratory Tests 10/20/16 15:09 EKG EKG EKG shows sinus rhythm with rate [address] elevations or T-wave inversions noted, left axis deviation noted, QTC 407 ms, as interpreted by me. Radiology/Procedures Radiology/Procedures [facility] [address] [place] [address] IMAGING REPORT Signed PATIENT: DEBBIE LAM ACCOUNT: [id number] : 1935 LOCATION: ER AGE: 81 SEX: F EXAM STATUS: REG ER ORD. PHYSICIAN: ANTOLIN CHAVEZ MD REASON: abd pain PROCEDURE: CT CHEST ABDOMEN PELVIS WO Indication: Abdominal pain, nausea, vomiting, and diarrhea. Technique: Axial images and coronal and sagittal reformatted images are provided. Exam was performed without contrast given allergy. Comparison is a CT abdomen and pelvis from September 10, 2016. There is also a chest radiograph from September 19, 2016. One or more of the following individualized dose reduction techniques were utilized for this examination: 1. Automated exposure control 2. Adjustment of the mA and/or kV according to patient size 3. Use of iterative reconstruction technique Findings: Chest: There are calcified granulomas. There is dependent atelectasis. There is no worrisome pulmonary nodule or consolidation. There is no pleural effusion. There are calcified right hilar and mediastinal lymph nodes. There is thyromegaly. There is atheromatous disease in the thoracic aorta. The heart is not enlarged. Coronary artery calcifications are noted. There is no hilar or mediastinal adenopathy apparent on this noncontrast study. There are degenerative changes in the spine. Abdomen: Solid organ evaluation is limited without contrast. Liver, gallbladder, and pancreas are grossly unremarkable. Adrenal fullness is stable. Benign calcifications are noted in the spleen. Probable cysts within the kidneys are redemonstrated. There is atheromatous disease in the abdominal aorta without aneurysm. Lack of IV or oral contrast limits evaluation of bowel. There is probably a small hiatal hernia. There is no small bowel obstruction or mural thickening. There are postsurgical changes with bowel anastomosis noted in the left lower quadrant. There are diverticula in the colon without findings of diverticulitis. There is streak artifact in the pelvis from a right hip arthroplasty. Bladder is decompressed. There are calcified phleboliths. There is no definite pelvic mass. There are degenerative changes in the spine. There are postsurgical changes in the lumbar spine as well. Impression: Chest: 1. No acute thoracic findings. 2. Granulomatous disease. Abdomen/pelvis: 1. No acute abdominal or pelvic findings. 2. Diverticulosis in the colon. 3. Prior bowel resection. DICTATED and SIGNED BY: ABHI ALBA MD DATE: 10/20/16 3132 CC: ANTOLIN CHAVEZ MD; MONI HENSON MD ~ Impressions: Decreased appetite Course & Med Decision Making Course & Med Decision Making Pertinent Labs and Imaging studies reviewed. (See chart for details) CT scan abdomen pelvis in addition to basic labs and a UA did not show acute abnormality's. Patient's agreeable weaned discharged home. She has a follow-up appointment on . I spoke with Dr. Henson who wants patient to call her medical systems were on didn't try to have her appointment moved up. The patient being discharged with return precautions. Her and her family is agreeable plan being discharged in stable condition. Dragon Disclaimer Dragon Disclaimer This electronic medical record was generated, in whole or in part, using a voice recognition dictation system. Departure Departure Impression: Primary Impression: Decrease in appetite Disposition: HOME, SELF-CARE Condition: STABLE Referrals: MONI HENSON MD (PCP) Patient Instructions: Weakness, [id number]-[id number] Additional Instructions: Your CAT scan of her abdomen pelvis, your blood work and urinalysis did not show any acute abnormality's. Your being discharged home. I spoke with Dr. Henson who states you can call her office and asked for Shagufta her medical secretary see Jeffry Lainez appointment moved up earlier in the week. Return ER for severe abdominal pain, uncontrolled nausea vomiting, weakness, or other concerns. ANTOLIN CHAVEZ MD Oct 20, 2016 13:46
--- NOTE | 2016-10-20 14:48 | EKG ---
[facility] [address] [place] [address] Test Date: 2016-10-20 Test Time: 14:37:25 Pat Name: DEBBIE LAM Department: Room: Gender: F [employer]: : 1935 Requested By: ANTOLIN CHAVEZ Order Number: [id number] Reading MD: Eva Yoon Measurements Intervals [place] Rate: 73 P: 0 DE: 330 QRS: -18 QRSD: 86 T: 24 QT: 366 QTc: 407 Interpretive Statements SINUS RHYTHM PROLONGED DE INTERVAL LEFTWARD AXIS QRS(T) CONTOUR ABNORMALITY CANNOT RULE OUT ANTEROSEPTAL MYOCARDIAL DAMAGE Electronically Signed On 10-21-2016 20:05:01 CDT by Eva Yoon
--- NOTE | 2016-10-20 15:01 | RAD ---
Indication: Nausea for one week. Technique: Upright portable chest radiograph was obtained. Comparison is from July 28, 2011. Findings: The lungs are clear. The heart is upper limits of normal in size. There is tortuosity of the thoracic aorta with atheromatous disease noted. There is no heart failure. Bony structures are intact. Leads overlie the patient. Impression: Borderline cardiomegaly.
[2016-10-20 15:31] LABS: BASO # 0.1 x10^3/uL (0.0-0.2); BASO % 2 % (0-3); EOS % 2 % (0-3); HEMATOCRIT 28.9 % (36.0-47.0); HEMOGLOBIN 9.6 g/dL (12.0-15.5); LYMPH # 2.5 x10^3/uL (1.0-4.8); LYMPH % 32 % (24-48); MEAN CORPUSCULAR HEMOGLOBIN 29 pg (25-35); MEAN CORPUSCULAR HGB CONC 33 g/dL (31-37); MEAN CORPUSCULAR VOLUME 88 fL (79-100); MONO % 10 % (0-9); NEUT % 55 % (31-73); PLATELET COUNT 433 x10^3/uL (140-400); RED BLOOD COUNT 3.28 x10^6/uL (3.50-5.40); RED CELL DISTRIBUTION WIDTH 16.5 % (11.5-14.5); WHITE BLOOD COUNT 7.8 x10^3/uL (4.0-11.0)
[2016-10-20 15:38] LABS: CALCIUM 9.8 mg/dL (8.5-10.1); CREATININE 1.7 mg/dL (0.6-1.0); GFR 34.8; POTASSIUM 4.5 mmol/L (3.5-5.1)
[2016-10-20 15:47] LABS: INR 1.2 (0.8-1.1); PROTHROMBIN TIME PATIENT 14.5 SEC (11.7-14.0)
[2016-10-20 15:50] LABS: ALBUMIN 2.9 g/dL (3.4-5.0); DIRECT BILIRUBIN 0.1 mg/dL (0.0-0.2); MAGNESIUM 1.9 mg/dL (1.8-2.4); TOTAL BILIRUBIN 0.1 mg/dL (0.2-1.0); TOTAL PROTEIN 7.7 g/dL (6.4-8.2)
[2016-10-20 15:51] LABS: CREATINE KINASE 21 U/L (26-192)
[2016-10-20 15:52] LABS: CKMB MASS < 0.5 ng/mL (0.0-3.6)
[2016-10-20 15:55] VITALS: BP 163/78
[2016-10-20 16:23] LABS: BILIRUBIN,URINE NEGATIVE (NEG); GLUCOSE,URINE NEGATIVE (NEG); NITRITE,URINE NEGATIVE (NEG); PH,URINE 5.5; PROTEIN,URINE 100 mg/dL (NEG-TRACE); SQUAMOUS EPITHELIAL CELL,UR MANY /LPF; UROBILINOGEN,URINE 0.2 mg/dL (0.2 mg/dL)
[2016-10-20 16:24] LABS: BACTERIA,URINE MANY /HPF (0-FEW); BARBITURATES NEG (NEG); BENZODIAZEPINES NEG (NEG); CANNABINOIDS NEG (NEG); COCAINE NEG (NEG); METHADONE NEG (NEG); OPIATES NEG (NEG); PHENCYCLIDINE NEG (NEG); RBC,URINE 0 /HPF (0-2); WBC,URINE OCC /HPF (0-4)
--- NOTE | 2016-10-20 16:27 | RAD ---
Indication: Abdominal pain, nausea, vomiting, and diarrhea. Technique: Axial images and coronal and sagittal reformatted images are provided. Exam was performed without contrast given allergy. Comparison is a CT abdomen and pelvis from September 10, 2016. There is also a chest radiograph from September 19, 2016. One or more of the following individualized dose reduction techniques were utilized for this examination: 1. Automated exposure control 2. Adjustment of the mA and/or kV according to patient size 3. Use of iterative reconstruction technique Findings: Chest: There are calcified granulomas. There is dependent atelectasis. There is no worrisome pulmonary nodule or consolidation. There is no pleural effusion. There are calcified right hilar and mediastinal lymph nodes. There is thyromegaly. There is atheromatous disease in the thoracic aorta. The heart is not enlarged. Coronary artery calcifications are noted. There is no hilar or mediastinal adenopathy apparent on this noncontrast study. There are degenerative changes in the spine. Abdomen: Solid organ evaluation is limited without contrast. Liver, gallbladder, and pancreas are grossly unremarkable. Adrenal fullness is stable. Benign calcifications are noted in the spleen. Probable cysts within the kidneys are redemonstrated. There is atheromatous disease in the abdominal aorta without aneurysm. Lack of IV or oral contrast limits evaluation of bowel. There is probably a small hiatal hernia. There is no small bowel obstruction or mural thickening. There are postsurgical changes with bowel anastomosis noted in the left lower quadrant. There are diverticula in the colon without findings of diverticulitis. There is streak artifact in the pelvis from a right hip arthroplasty. Bladder is decompressed. There are calcified phleboliths. There is no definite pelvic mass. There are degenerative changes in the spine. There are postsurgical changes in the lumbar spine as well. Impression: Chest: 1. No acute thoracic findings. 2. Granulomatous disease. Abdomen/pelvis: 1. No acute abdominal or pelvic findings. 2. Diverticulosis in the colon. 3. Prior bowel resection.
== END 2016-10-20 17:51 | disposition home or self-care (01) ==
LOC: ER 13:26
DX: R63.0 Anorexia (principal); R53.1 Weakness; I10 Essential (primary) hypertension
CPT/HCPCS: 36415; 71010; 71250; 74176; 80048; 80076; 80307; 81001; 82553; 83690; 83735; 83880; 84443; 84484; 85025; 85610; 87086; 93005; 99285-25; G0479

== ENCOUNTER → 2017-06-05 | Outpatient (CLI) | payer BC ==
[2017-06-05] MEDS: REGADENOSON 0.4 MG/5 ML DISP.SYRIN. IV (10:38)
== END | disposition home or self-care (01) ==
LOC: NM 08:22
DX: I47.2 Ventricular tachycardia (principal); E11.9 Type 2 diabetes mellitus without complications; I10 Essential (primary) hypertension; E78.5 Hyperlipidemia, unspecified
CPT/HCPCS: 78452; 93017; 96374; 96375; 96376; A9500; J2785

== ENCOUNTER 2017-07-02 14:10 | Emergency (ER) | payer BC ==
[2017-07-02] MEDS ORDERED: OXYMETAZOLINE 0.05% NASAL SPRAY 30ML BOTTLE. NS (14:38)
[2017-07-02] MEDS: OXYMETAZOLINE 0.05% NASAL SPRAY 30ML BOTTLE. NS (14:49)
[2017-07-02 15:05] LABS: ADD MAN DIFF? NO
[2017-07-02 15:07] LABS: BASO % 0 % (0-3); EOS # 0.1 x10^3/uL (0.0-0.7); EOS % 2 % (0-3); HEMATOCRIT 28.9 % (36.0-47.0); HEMOGLOBIN 9.8 g/dL (12.0-15.5); LYMPH # 1.6 x10^3/uL (1.0-4.8); LYMPH % 26 % (24-48); MEAN CORPUSCULAR HEMOGLOBIN 29 pg (25-35); MEAN CORPUSCULAR HGB CONC 34 g/dL (31-37); MEAN CORPUSCULAR VOLUME 87 fL (79-100); MONO # 0.6 x10^3/uL (0.0-1.1); MONO % 9 % (0-9); NEUT # 3.8 x10^3uL (1.8-7.7); NEUT % 62 % (31-73); PLATELET COUNT 235 x10^3/uL (140-400); RED BLOOD COUNT 3.35 x10^6/uL (3.50-5.40); WHITE BLOOD COUNT 6.2 x10^3/uL (4.0-11.0)
[2017-07-02 15:16] LABS: ANION GAP 11 (6-14); BLOOD UREA NITROGEN 37 mg/dL (7-20); CALCIUM 9.3 mg/dL (8.5-10.1); CARBON DIOXIDE 25 mmol/L (21-32); CHLORIDE 110 mmol/L (98-107); CREATININE 2.4 mg/dL (0.6-1.0); GFR 23.3; GLUCOSE 134 mg/dL (70-99); POTASSIUM 4.4 mmol/L (3.5-5.1); SODIUM 146 mmol/L (136-145)
[2017-07-02 15:21] LABS: INR 1.1 (0.8-1.1); PARTIAL THROMBOPLASTIN TIME 28 SEC (24-38); PROTHROMBIN TIME PATIENT 14.1 SEC (11.7-14.0)
[2017-07-02] MEDS: cloNIDine HCL 0.1 MG TABLET PO (16:45)
[2017-07-02] MEDS: LABETALOL 20 MG/4 ML DISP.SYRIN. IVP (18:48)
== END 2017-07-02 19:35 | disposition home or self-care (01) ==
LOC: ER 14:10
DX: R04.0 Epistaxis (principal); I10 Essential (primary) hypertension; E78.00 Pure hypercholesterolemia, unspecified; E11.9 Type 2 diabetes mellitus without complications; F17.210 Nicotine dependence, cigarettes, uncomplicated
CPT/HCPCS: 30901; 36415; 80048; 85025; 85610; 85730; 96374; 99284-25; J3490

== ENCOUNTER 2017-07-07 12:06 | Emergency (ER) | payer BC ==
[2017-07-07] MEDS ORDERED: DEXTROSE 50% 25 GM / 50ML DISP.SYRIN. IV (12:21)
[2017-07-07 12:33] LABS: ADD MAN DIFF? NO
[2017-07-07 12:33] LABS: POC GLUCOSE 56 mg/dL (70-99)
[2017-07-07] MEDS: TRIAMTERENE/HCTZ 37.5/25MG TABLET. PO (12:45)
[2017-07-07] MEDS: LISINOPRIL 20 MG TABLET PO (12:45)
[2017-07-07] MEDS: IV DEXTROSE 5% - 0.9 % NACL 1,000 ML IV (12:50)
[2017-07-07 12:54] LABS: ANION GAP 14 (6-14); BLOOD UREA NITROGEN 40 mg/dL (7-20); CALCIUM 9.6 mg/dL (8.5-10.1); CARBON DIOXIDE 22 mmol/L (21-32); CHLORIDE 106 mmol/L (98-107); CREATININE 2.1 mg/dL (0.6-1.0); GFR 27.2; GLUCOSE 132 mg/dL (70-99); POTASSIUM 4.3 mmol/L (3.5-5.1); SODIUM 142 mmol/L (136-145)
[2017-07-07 12:59] LABS: BASO # 0.1 x10^3/uL (0.0-0.2); BASO % 1 % (0-3); EOS % 0 % (0-3); HEMOGLOBIN 9.2 g/dL (12.0-15.5); LYMPH # 0.8 x10^3/uL (1.0-4.8); LYMPH % 13 % (24-48); MEAN CORPUSCULAR HEMOGLOBIN 29 pg (25-35); MEAN CORPUSCULAR HGB CONC 33 g/dL (31-37); MEAN CORPUSCULAR VOLUME 87 fL (79-100); MONO # 0.4 x10^3/uL (0.0-1.1); MONO % 7 % (0-9); NEUT # 5.1 x10^3uL (1.8-7.7); NEUT % 80 % (31-73); PLATELET COUNT 311 x10^3/uL (140-400); RED CELL DISTRIBUTION WIDTH 14.7 % (11.5-14.5); WHITE BLOOD COUNT 6.5 x10^3/uL (4.0-11.0)
[2017-07-07 13:57] LABS: POC GLUCOSE 132 mg/dL (70-99)
[2017-07-07 15:30] LABS: POC GLUCOSE 156 mg/dL (70-99)
== END 2017-07-07 17:00 | disposition home or self-care (01) ==
LOC: ER 12:06
DX: E11.649 Type 2 diabetes mellitus with hypoglycemia without coma (principal); E78.00 Pure hypercholesterolemia, unspecified; I10 Essential (primary) hypertension; Z88.5 Allergy status to narcotic agent
CPT/HCPCS: 36415; 70450; 80048; 82962; 85025; 93005; 96360; 96361; 99285-25; J7042

== ENCOUNTER → 2017-12-17 | Outpatient (CLI) | payer BC ==
[2017-07-07 16:49] VITALS: BP 198/80
[~2017-12-17] MED LIST changes: +LISI-130 PO; -LISI40TA PO; +METF500T16 PO; -METF500T4 PO; -METO50TA2 PO; +METO50TA6 PO
--- NOTE | 2017-12-17 11:55 | RAD ---
MR#: [id number] Date of Study: 12/17/2017 Ordering Physician: REGGIE FITZGERALD, Referring Physician: REGGIE FITZGERALD, Tech: Moo Ryan MBA, RDMS, RVT, RDCS, RTR APPROVED REPORT Patient Location: OUT-PATIENT Indications Uncontrolled HTN Renal Artery Doppler Right Renal Artery Left Renal Arter y Proximal 96.0/20.0 cm/secProximal 55.0/14.0 cm/sec Mid 107.0/24.0 cm/secMid 32.0/11.0 cm/sec Distal 78.0/15.0 cm/secDistal 50.0/13.0 cm/sec Renal/Aorta Ratio 0.90Renal/Aorta Ratio 0.46 Prox. Resistive Index 0.79Prox. Resistive Index 0.75 Mid Resistive Index 0.78Mid Resistive Index 0.65 Distal Resistive Index 0.81Distal Resistive Index 0.73 Rt. Segmental A. 43.0/9.0 cm/secLt. Segmental A. 47.0/11.0 cm/sec Renal Measurements RightLeft Kidney Kzicbt49.5 cm cmKidney Ciacsk14.5 cm cm Right Additional FindingsLeft Additional Findings Aortic Doppler VelocityWaveform Proximal Aorta 119.0 cm/sec Findings Grayscale images of the bilateral kidneys demonstrate multiple cysts. This is likely suggestive of po lycystic kidney disease. The cysts are simple in nature and no obvious vascular supply is noted. The largest cyst on the right side measures 3.3 cm in the mid/lateral segments while the largest cyst on the left side at the superior pole measures 3.7 cm. Spectral waveforms and color Doppler of the bilateral proximal, mid and distal renal arteries do not demonstrate any evidence of significant renal artery stenosis. Color Doppler and spectral waveforms t he aorta are within normal limits. No significant velocity acceleration is noted throughout the aortorenal vasculature on the study. Critical Notification Critical Value: No <Conclusion> No significant renal artery stenosis bilaterally. Multiple bilateral renal cysts noted. Signed by : Donaldo Villa, Electronically Approved : 12/17/2017 11:55:09
== END | disposition home or self-care (01) ==
LOC: US 10:29
PROVIDERS: ATTEND Internal Medicine Cardiovascular Disease
DX: N28.1 Cyst of kidney, acquired (principal); I10 Essential (primary) hypertension
CPT/HCPCS: 93975

== ENCOUNTER → 2018-04-16 | Outpatient (CLI) | payer BC ==
[2017-07-07 16:49] VITALS: BP 198/80
[~2018-04-16] MED LIST changes: +HYDR-3164 PO; -HYDR-971 PO
--- NOTE | 2018-04-16 12:55 | CARD ---
MR#: [id number] Date of Study: 04/16/2018 Ordering Physician: REGGIE FITZGERALD, Referring Physician: REGGIE FITZGERALD Tech: Ramona Calle RDCS APPROVED REPORT EXAM: Two-dimensional and M-mode echocardiogram with Doppler and color Doppler. Other Information Quality : Good INDICATION Ventricular Tachycardia 2D DIMENSIONS RVDd3.4 (2.9-3.5cm)Left Atrium(2D)3.2 (1.6-4.0cm) IVSd1.5 (0.7-1.1cm)Aortic Root(2D)3.2 (2.0-3.7cm) LVDd3.4 (3.9-5.9cm)LVOT Diameter2.3 (1.8-2.4cm) PWd1.4 (0.7-1.1cm)LVDs2.2 (2.5-4.0cm) FS (%) 34.9 %SV31.7 ml LVEF(%)65.2 (>50%) M-Mode DIMENSIONS Aortic Cusp Exc2.21 (1.5-2.0cm) Aortic Valve AoV Peak Rudy.114.9cm/sAoV VTI21.2cm AO Peak GR.5.3mmHgLVOT Peak Rudy.83.1cm/s LVOT VTI 15.60cmAO Mean GR.3mmHg GENTRY (VMAX)2.36qz6RPM (VTI)2.95cm2 Mitral Valve MV E Vpfnifqz01.6cm/sMV DECEL WFSU993ie MV A Lpflnshj076.8cm/sMV LNY25ca E/A Ratio0.4MVA (PHT)5.59cm2 TDI E/Lateral E'7.5E/Medial E'9.3 Tricuspid Valve TR P. Uueubzco168hr/sRAP CKUACLMO7koCz TR Peak Gr.95ztEnMIBR73knUj Pulmonary Vein S1 Mlddpvzf79.2cm/sD2 Eqwchton02.1cm/s LEFT VENTRICLE The left ventricle is normal size. There is mild concentric left ventricular hypertrophy. The left ve ntricular systolic function is normal and the ejection fraction is within normal range. The Ejection Fraction is 55-60%. There is normal LV segmental wall motion. Transmitral Doppler flow pattern is Gra de I-abnormal relaxation pattern. RIGHT VENTRICLE The right ventricle is normal size. The right ventricular systolic function is normal. ATRIA The left atrium size is normal. The right atrium size is normal. The interatrial septum is intact wit h no evidence for an atrial septal defect or patent foramen ovale as noted on 2-D or Doppler imaging. AORTIC VALVE The aortic valve is calcified but opens well. Doppler and Color Flow revealed trace aortic regurgitat ion. There is no significant aortic valvular stenosis. MITRAL VALVE The mitral valve is calcified but opens well. Posterior mitral annular calcification is mild. There i s no evidence of mitral valve prolapse. There is no mitral valve stenosis. Doppler and Color-flow rev ealed mild mitral regurgitation. TRICUSPID VALVE The tricuspid valve is normal in structure and function. Doppler and Color Flow revealed mild to mode rate tricuspid regurgitation. There is moderate pulmonary hypertension. The PA pressure was estimated at 46 mmHg. There is no tricuspid valve stenosis. PULMONIC VALVE The pulmonic valve is not well visualized. Doppler and Color Flow revealed trace pulmonic valvular re gurgitation. There is no pulmonic valvular stenosis. GREAT VESSELS The aortic root is normal in size. The ascending aorta is mildly dilated at 3.4 cm. The IVC is normal in size and collapses >50% with inspiration. PERICARDIAL EFFUSION There is no evidence of significant pericardial effusion. Critical Notification Critical Value: No <Conclusion> The left ventricle is normal size. The left ventricular systolic function is normal and the ejection fraction is within normal range. The Ejection Fraction is 55-60%. There is mild concentric left ventricular hypertrophy. There is no significant aortic valvular stenosis. Doppler and Color Flow revealed trace aortic regurgitation. Doppler and Color-flow revealed mild mitral regurgitation. Doppler and Color Flow revealed mild to moderate tricuspid regurgitation. There is moderate pulmonary hypertension. The PA pressure was estimated at 46 mmHg. The ascending aorta is mildly dilated at 3.4 cm. Signed by : Ron Valadez MD Electronically Approved : 04/16/2018 12:55:21
== END | disposition home or self-care (01) ==
LOC: ECHO 09:58
PROVIDERS: ATTEND Internal Medicine Cardiovascular Disease
DX: I08.1 Rheumatic disorders of both mitral and tricuspid valves (principal); I27.20 Pulmonary hypertension, unspecified; I47.2 Ventricular tachycardia; R00.8 Other abnormalities of heart beat
CPT/HCPCS: 93306

== ENCOUNTER → 2019-05-14 | Outpatient (CLI) | payer BC, MEDICARE ==
[2019-05-06 10:26] VITALS: BP 176/70
[~2019-05-14] MED LIST changes: +ALLO100T PO; +ASPI-630 PO; +CARV25TA2 PO; +CYAN500T17 PO; +ERGO500027 PO; -GLIM1TAB2 PO; +GLIM1TAB7 PO; -GLIM2TAB2 PO; +GLIM2TAB7 PO; +HYDR-2869 PO; +LABE200T4 PO
--- NOTE | 2019-05-14 12:03 | CARD ---
MR#: [id number] Date of Study: 05/14/2019 Ordering Physician: REGGIE FITZGERALD, Referring Physician: REGGIE FITZGERALD, Tech: Thierry Sierra RDCS APPROVED REPORT EXAM: Two-dimensional and M-mode echocardiogram with Doppler and color Doppler. Other Information Quality : AverageHR: 74bpm Rhythm : NSR INDICATION Nonsustained Vtach 2D DIMENSIONS RVDd3.1 (2.9-3.5cm)Left Atrium(2D)3.1 (1.6-4.0cm) IVSd1.8 (0.7-1.1cm)Aortic Root(2D)3.7 (2.0-3.7cm) LVDd4.3 (3.9-5.9cm)LVOT Diameter2.2 (1.8-2.4cm) PWd1.8 (0.7-1.1cm)LVDs2.5 (2.5-4.0cm) FS (%) 42.3 %SV60.6 ml LVEF(%)73.7 (>50%) Aortic Valve AoV Peak Rudy.122.9cm/Aubrie Peak GR.6.0mmHg LVOT Peak Rudy.87.6cm/sAVA (VMAX)2.71cm2 AI P 1/2 Ajvk508ox Mitral Valve MV E Dgblxadb59.4cm/sMV DECEL EDSV984ol MV A Bhhteqka80.9cm/sE/A Ratio0.5 MV A Qgothbgu017kx Pulmonary Valve PV Peak Jjzkvmlo55.6cm/s Tricuspid Valve TR P. Ajnpxslt080wv/sRAP ZAJEYUNA1adNz TR Peak Gr.54heMmHLDF26roCa Pulmonary Vein S1 Tjyfwamp63.2cm/sD2 Ibgbvekq68.0cm/s PVa podtvqnw438wqrj LEFT VENTRICLE The left ventricle is normal size. There is moderate concentric left ventricular hypertrophy. The lef t ventricular systolic function is normal and the ejection fraction is within normal range. The Eject ion Fraction is 60-65%. There is normal LV segmental wall motion. Transmitral Doppler flow pattern is normal for age. There is no ventricular septal defect visualized. RIGHT VENTRICLE The right ventricle is normal size. The right ventricular systolic function is normal. ATRIA The left atrium size is normal. The right atrium size is normal. The interatrial septum is intact wit h no evidence for an atrial septal defect or patent foramen ovale as noted on 2-D or Doppler imaging. AORTIC VALVE The aortic valve is mildly sclerotic. Doppler and Color Flow revealed trace to mild aortic regurgitat ion. There is no significant aortic valvular stenosis. MITRAL VALVE Mitral annular calcification is mild. There is no mitral valve stenosis. Doppler and Color-flow revea led mild mitral regurgitation. TRICUSPID VALVE The tricuspid valve is normal in structure and function. Doppler and Color Flow revealed moderate tri cuspid regurgitation. PA pressure is estimated at 50 mmHg. There is no tricuspid valve stenosis. PULMONIC VALVE Doppler and Color Flow revealed no pulmonic valvular regurgitation. There is no pulmonic valvular isak nosis. GREAT VESSELS The aortic root is normal in size. The ascending aorta is normal in size. The IVC is normal in size a nd collapses >50% with inspiration. PERICARDIAL EFFUSION There is no pleural effusion. There is no evidence of significant pericardial effusion. Critical Notification Critical Value: No <Conclusion> There is moderate concentric left ventricular hypertrophy. The left ventricular systolic function is normal and the ejection fraction is within normal range. Th e Ejection Fraction is 60-65%. Doppler and Color Flow revealed moderate tricuspid regurgitation. PA pressure is estimated at 50 mmHg . Signed by : Donaldo Villa, Electronically Approved : 05/14/2019 12:03:11
== END | disposition home or self-care (01) ==
LOC: ECHO 10:43
PROVIDERS: ATTEND Internal Medicine Cardiovascular Disease
DX: I08.3 Combined rheumatic disorders of mitral, aortic and tricuspid valves (principal); I47.2 Ventricular tachycardia
CPT/HCPCS: 93306